=== PATIENT | male | born 1965 | race Caucasian/White ===

== ENCOUNTER 2019-06-14 11:57 | Inpatient (IN) | payer MEDICARE, MEDICAID ==
[2019-06-14] MEDS ORDERED: ONDANSETRON HCL INJ/PF 4 MG/2 ML SDV IV ONE (12:10)
[2019-06-14] MEDS ORDERED: NORMAL SALINE 1000 ML 1,000 ML IV ONE ×2 (12:10→13:01)
--- NOTE | 2019-06-14 12:12 | ER Document Report ---
ED Medical Screen (RME) - General Chief Complaint: Vomiting Stated Complaint: VOMITING Time Seen by Provider: 06/14/19 12:06 Primary Care Provider: CHAITANYA DAILY [Primary Care Provider] - Follow up as needed Information source: Patient Notes: Patient presents complaining of nausea and vomiting for the past 2 days. Patient states he did have abdominal pain but is improved at this time. Patient does report lightheadedness. Patient denies any fever. Patient was sent here from the [facility]. Patient has been at the [facility] for treatment of marijuana use. Patient reports a previous history of colon cancer. Patient tachycardic and hypotensive in triage. I have greeted and performed a rapid initial assessment of this patient. A comprehensive ED assessment and evaluation of the patient, analysis of test results and completion of the medical decision making process will be conducted by additional ED providers. - Related Data Allergies/Adverse Reactions: morphine Allergy (Verified 06/14/19 12:05) penicillin V Allergy (Verified 06/14/19 12:05) Physical Exam - Vital signs Vitals: Temp Pulse Resp BP Pulse Ox 98.4 F 122 H 40 H 89/59 L 94 06/14/19 12:06 06/14/19 12:06 06/14/19 12:06 06/14/19 12:06 06/14/19 12:06 - General General appearance: Alert In distress: Moderate Notes: Tachycardic Course - Vital Signs Vital signs: Temp Pulse Resp BP Pulse Ox 98.4 F 122 H 40 H 89/59 L 94 06/14/19 12:06 06/14/19 12:06 06/14/19 12:06 06/14/19 12:06 06/14/19 12:06 Doctor's Discharge - Discharge Referrals: CHAITANYA DAILY [Primary Care Provider] - Follow up as needed
[2019-06-14] MEDS ORDERED: DEXTROSE 50%-WATER 25 GM/50 ML DISP.SYRIN IV ONE (13:05)
[2019-06-14] MEDS ORDERED: PANTOPRAZOLE SODIUM 40 MG VIAL IV ONE (13:07)
[2019-06-14] MEDS ORDERED: PANTOPRAZOLE SODIUM 40 MG VIAL IV PRN (13:07)
--- NOTE | 2019-06-14 13:14 | ER Document Report ---
ED General - General Mode of Arrival: Ambulatory Information source: Patient - HPI Onset: Other Onset/Duration: Persistent Quality of pain: Achy Associated symptoms: Nausea, Vomiting Exacerbated by: Denies Relieved by: Denies Similar symptoms previously: Yes Recently seen / treated by doctor: Yes <JULIA BECERRIL - Last Filed: 06/14/19 21:23> <LEXY BROTHERS - Last Filed: 06/15/19 01:13> <CAREY PROCTOR IV - Last Filed: 06/15/19 03:07> - General Chief Complaint: Vomiting Stated Complaint: VOMITING Time Seen by Provider: 06/14/19 12:06 Notes: 53-year-old male presents to the emergency department from [facility] with complaints of nausea vomiting abdominal pain. At this time patient is a poor historian. I contacted Roberto GROVER at [facility]. She reports patient presented to their facility for withdrawal of heroin on June 11. She reports he informed them he has been doing one gram a day for the past 6 months. He also reports he used cocaine a few weeks ago. She reports patient was vomiting upon arrival. They did give him IM Phenergan and some Zofran as well as Thorazine Vistaril, thiamine and multivitamin. She reports that over the past 2 days patient has vomited approximately 3000 cc emesis. She reports over Sunday night he did well did not vomit. She reports he started vomiting again this morning. She reports at that time his blood pressure was dropping his heart rate increased. He also complained he was feeling weak. She reports patient has a history of colon cancer that is in remission. Reports he received immunotherapy. Last dose was in April. Pt reports Left AKA due to a DVT. (JULIA BECERRIL) - Related Data Allergies/Adverse Reactions: morphine Allergy (Verified 06/14/19 12:05) penicillin V Allergy (Verified 06/14/19 12:05) Past Medical History - General Information source: Patient - Social History Smoking Status: Current Every Day Smoker Cigarette use (# per day): Yes Frequency of alcohol use: Occasional Drug Abuse: Cocaine, Heroin, Marijuana, Other - fentanyl Patient has suicidal ideation: No Patient has homicidal ideation: No Malignancy Medical History: Reports Other - colon cancer Past Surgical History: Reports: Other - left bka <JULIA BECERRIL - Last Filed: 06/14/19 21:23> - Social History Family History: Reviewed & Not Pertinent <LEXY BROTHERS - Last Filed: 06/15/19 01:13> Review of Systems <JULIA BECERRIL - Last Filed: 06/14/19 21:23> - Review of Systems Notes: Review HPI for review of systems., All other systems negative (BECERRILJULIA) Physical Exam - General General appearance: Other <JULIA BECERRIL - Last Filed: 06/14/19 21:23> - Vital signs Vitals: Temp 98.4 F 06/14/19 12:00 Course - Laboratory Result Diagrams: 06/14/19 12:38 06/14/19 19:59 - Diagnostic Test Radiology reviewed: Image reviewed, Reports reviewed - EKG Interpretation by Me Rate: Tachycardia Harts/QRS: Right axis deviation <JULIA BECERRIL - Last Filed: 06/14/19 21:23> - Laboratory Result Diagrams: 06/14/19 12:38 06/14/19 19:59 <LEXY BROTHERS - Last Filed: 06/15/19 01:13> - Laboratory Result Diagrams: 06/14/19 12:38 06/14/19 19:59 <CAREY PROCTOR IV - Last Filed: 06/15/19 03:07> - Re-evaluation Re-evalutation: 06/14/19 13:14 [facility] contacted for report, discussed patient with roberto perez consulted, who assessed patient, +gastrocult noted, advised to contact dr mcneil surgeon. dr mcneil contacted for potential GIB. 06/14/19 13:[address] perez consulted, advised clindamycin due to patient pcn allergies, symptoms and reason for elevated lactic (possible due to vomiting, de hydration) Patient seems to be confused at times. He is alert to place/name but altered to situation other times. CT head ordered for AMS. 06/14/19 16:10 Patient reports that he is feeling better. Requesting p.o. fluids. Denies abdominal pain. Patient reports he snorts heroin he does not do IV injection. Second lactic 1.8. leukocytosis wiht h/h elevated. hyponatremia noted, chloride 88, most likely due to vomiting. patient has received 3 l ns, Prosthetic leg removed for comfort per patient request. 06/14/19 17:35 Patient seems more alert. Blood pressures remains low 85/51 with patient still tachy. Patient has received 3 L of fluid. H&H stable. Stopped the Protonix. Patient has not had no further vomiting. CT negative. Consulted Dr. Ma regarding bp/tachy, labs, patient history. Reviewed patient external medications. Noted he is taking warfarin. Patient reports that is for his history of blood clot. Patient also takes lisinopril, xanax and is also prescribed 20 mg of oxycodone p.o. 3 times a day. Urine drug screen shows positive for cocaine. Dr Ma advised another liter of D5NS, thiamine, repeat accucheck. Pt updated on plan of care, verbalized understanding. 06/14/19 19:33 Patient remains tachycardic at 120 with low blood pressure of 103/65, dr ma c onsulted, he advises admission. Laboratory 06/14/19 06/14/19 06/14/19 12:38 12:38 12:38 WBC 15.9 H RBC 6.31 H Hgb 18.7 H Hct 52.0 H MCV 82 MCH 29.6 MCHC 36.0 RDW 17.6 H Plt Count 430 Lymph % (Auto) 16.2 [place] % (Auto) 8.6 Eos % (Auto) 17.8 H Baso % (Auto) 0.4 Absolute Neuts (auto) 9.0 H Absolute Lymphs (auto) 2.6 Absolute Monos (auto) 1.4 Absolute Eos (auto) 2.8 H Absolute Basos (auto) 0.1 Seg Neutrophils % 57.0 PT 18.1 H INR 1.49 APTT VBG pH VBG pCO2 VBG HCO3 VBG Base Excess Sodium 130.3 L Potassium 4.2 Chloride 88 L Carbon Dioxide 23 Anion Gap 19 BUN 15 Creatinine 1.01 Est GFR ( Amer) > 60 Est GFR (MDRD) Non-Af > 60 Glucose 53 L POC Glucose Lactic Acid Calcium 11.1 H Magnesium 2.2 Total Bilirubin 1.6 H Direct Bilirubin 0.2 Neonat Total Bilirubin Not Reportable Neonat Direct Bilirubin Not Reportable Neonat Indirect Bili Not Reportable AST 37 ALT 13 Alkaline Phosphatase 72 Ammonia Troponin I Total Protein 7.7 Albumin 4.8 Amylase Lipase 122.3 Urine Color Urine Appearance Urine pH Ur Specific [place] Urine Protein Urine Glucose (UA) Urine Ketones Urine Blood Urine Nitrite (Reflex) Urine Bilirubin Urine Urobilinogen Leukocyte Esterase Rfl Urine RBC (Auto) U Hyaline Cast (Auto) Urine Bacteria (Auto) Urine WBC (Reflex) Squamous Epi Cells Auto Urine Mucus (Auto) Urine Ascorbic Acid POC Gastric Occult Bld Urine Opiates Screen Urine Methadone Screen Ur Barbiturates Screen Ur Phencyclidine Scrn Ur Amphetamines Screen U Benzodiazepines Scrn Urine Cocaine Screen U Marijuana (THC) Screen Serum Alcohol Blood Type Antibody Screen 06/14/19 06/14/19 06/14/19 12:38 12:38 12:38 WBC RBC Hgb Hct MCV MCH MCHC RDW Plt Count Lymph % (Auto) [place] % (Auto) Eos % (Auto) Baso % (Auto) Absolute Neuts (auto) Absolute Lymphs (auto) Absolute Monos (auto) Absolute Eos (auto) Absolute Basos (auto) Seg Neutrophils % PT INR APTT VBG pH 7.32 VBG pCO2 46.6 VBG HCO3 23.7 VBG Base Excess -2.8 Sodium Potassium Chloride Carbon Dioxide Anion Gap BUN Creatinine Est GFR ( Amer) Est GFR (MDRD) Non-Af Glucose POC Glucose Lactic Acid 3.4 H Calcium Magnesium Total Bilirubin Direct Bilirubin Neonat Total Bilirubin Neonat Direct Bilirubin Neonat Indirect Bili AST ALT Alkaline Phosphatase Ammonia Troponin I Total Protein Albumin Amylase 50 Lipase Urine Color Urine Appearance Urine pH Ur Specific [place] Urine Protein Urine Glucose (UA) Urine Ketones Urine Blood Urine Nitrite (Reflex) Urine Bilirubin Urine Urobilinogen Leukocyte Esterase Rfl Urine RBC (Auto) U Hyaline Cast (Auto) Urine Bacteria (Auto) Urine WBC (Reflex) Squamous Epi Cells Auto Urine Mucus (Auto) Urine Ascorbic Acid POC Gastric Occult Bld Urine Opiates Screen Urine Methadone Screen Ur Barbiturates Screen Ur Phencyclidine Scrn Ur Amphetamines Screen U Benzodiazepines Scrn Urine Cocaine Screen U Marijuana (THC) Screen Serum Alcohol < 10 Blood Type Antibody Screen 06/14/19 06/14/19 06/14/19 12:38 12:38 12:57 WBC RBC Hgb Hct MCV MCH MCHC RDW Plt Count Lymph % (Auto) [place] % (Auto) Eos % (Auto) Baso % (Auto) Absolute Neuts (auto) Absolute Lymphs (auto) Absolute Monos (auto) Absolute Eos (auto) Absolute Basos (auto) Seg Neutrophils % PT INR APTT 42.6 H VBG pH VBG pCO2 VBG HCO3 VBG Base Excess Sodium Potassium Chloride Carbon Dioxide Anion Gap BUN Creatinine Est GFR ( Amer) Est GFR (MDRD) Non-Af Glucose POC Glucose 54 L Lactic Acid Calcium Magnesium Total Bilirubin Direct Bilirubin Neonat Total Bilirubin Neonat Direct Bilirubin Neonat Indirect Bili AST ALT Alkaline Phosphatase Ammonia Troponin I < 0.012 Total Protein Albumin Amylase Lipase Urine Color Urine Appearance Urine pH Ur Specific [place] Urine Protein Urine Glucose (UA) Urine Ketones Urine Blood Urine Nitrite (Reflex) Urine Bilirubin Urine Urobilinogen Leukocyte Esterase Rfl Urine RBC (Auto) U Hyaline Cast (Auto) Urine Bacteria (Auto) Urine WBC (Reflex) Squamous Epi Cells Auto Urine Mucus (Auto) Urine Ascorbic Acid POC Gastric Occult Bld Urine Opiates Screen Urine Methadone Screen Ur Barbiturates Screen Ur Phencyclidine Scrn Ur Amphetamines Screen U Benzodiazepines Scrn Urine Cocaine Screen U Marijuana (THC) Screen Serum Alcohol Blood Type Antibody Screen 06/14/19 06/14/19 06/14/19 13:00 13:09 13:09 WBC RBC Hgb Hct MCV MCH MCHC RDW Plt Count Lymph % (Auto) [place] % (Auto) Eos % (Auto) Baso % (Auto) Absolute Neuts (auto) Absolute Lymphs (auto) Absolute Monos (auto) Absolute Eos (auto) Absolute Basos (auto) Seg Neutrophils % PT INR APTT VBG pH VBG pCO2 VBG HCO3 VBG Base Excess Sodium Potassium Chloride Carbon Dioxide Anion Gap BUN Creatinine Est GFR ( Amer) Est GFR (MDRD) Non-Af Glucose POC Glucose Lactic Acid Calcium Magnesium Total Bilirubin Direct Bilirubin Neonat Total Bilirubin Neonat Direct Bilirubin Neonat Indirect Bili AST ALT Alkaline Phosphatase Ammonia < 8.7 L Troponin I Total Protein Albumin Amylase Lipase Urine Color Urine Appearance Urine pH Ur Specific [place] Urine Protein Urine Glucose (UA) Urine Ketones Urine Blood Urine Nitrite (Reflex) Urine Bilirubin Urine Urobilinogen Leukocyte Esterase Rfl Urine RBC (Auto) U Hyaline Cast (Auto) Urine Bacteria (Auto) Urine WBC (Reflex) Squamous Epi Cells Auto Urine Mucus (Auto) Urine Ascorbic Acid POC Gastric Occult Bld POSITIVE Urine Opiates Screen Urine Methadone Screen Ur Barbiturates Screen Ur Phencyclidine Scrn Ur Amphetamines Screen U Benzodiazepines Scrn Urine Cocaine Screen U Marijuana (THC) Screen Serum Alcohol Blood Type A POSITIVE Antibody Screen NEGATIVE 06/14/19 06/14/19 06/14/19 14:26 15:30 16:12 WBC RBC Hgb Hct MCV MCH MCHC RDW Plt Count Lymph % (Auto) [place] % (Auto) Eos % (Auto) Baso % (Auto) Absolute Neuts (auto) Absolute Lymphs (auto) Absolute Monos (auto) Absolute Eos (auto) Absolute Basos (auto) Seg Neutrophils % PT INR APTT VBG pH VBG pCO2 VBG HCO3 VBG Base Excess Sodium Potassium Chloride Carbon Dioxide Anion Gap BUN Creatinine Est GFR ( Amer) Est GFR (MDRD) Non-Af Glucose POC Glucose 158 H Lactic Acid 1.8 Calcium Magnesium Total Bilirubin Direct Bilirubin Neonat Total Bilirubin Neonat Direct Bilirubin Neonat Indirect Bili AST ALT Alkaline Phosphatase Ammonia Troponin I Total Protein Albumin Amylase Lipase Urine Color YELLOW Urine Appearance SLIGHTLY-CLOUDY Urine pH 6.0 Ur Specific [place] 1.020 Urine Protein 100 H Urine Glucose (UA) 150 H Urine Ketones 80 H Urine Blood NEGATIVE Urine Nitrite (Reflex) NEGATIVE Urine Bilirubin NEGATIVE Urine Urobilinogen NEGATIVE Leukocyte Esterase Rfl NEGATIVE Urine RBC (Auto) 0 U Hyaline Cast (Auto) 33 Urine Bacteria (Auto) TRACE Urine WBC (Reflex) 2 Squamous Epi Cells Auto <1 Urine Mucus (Auto) FEW Urine Ascorbic Acid NEGATIVE POC Gastric Occult Bld Urine Opiates Screen Urine Methadone Screen Ur Barbiturates Screen Ur Phencyclidine Scrn Ur Amphetamines Screen U Benzodiazepines Scrn Urine Cocaine Screen U Marijuana (THC) Screen Serum Alcohol Blood Type Antibody Screen 06/14/19 16:12 WBC RBC Hgb Hct MCV MCH MCHC RDW Plt Count Lymph % (Auto) [place] % (Auto) Eos % (Auto) Baso % (Auto) Absolute Neuts (auto) Absolute Lymphs (auto) Absolute Monos (auto) Absolute Eos (auto) Absolute Basos (auto) Seg Neutrophils % PT INR APTT VBG pH VBG pCO2 VBG HCO3 VBG Base Excess Sodium Potassium Chloride Carbon Dioxide Anion Gap BUN Creatinine Est GFR ( Amer) Est GFR (MDRD) Non-Af Glucose POC Glucose Lactic Acid Calcium Magnesium Total Bilirubin Direct Bilirubin Neonat Total Bilirubin Neonat Direct Bilirubin Neonat Indirect Bili AST ALT Alkaline Phosphatase Ammonia Troponin I Total Protein Albumin Amylase Lipase Urine Color Urine Appearance Urine pH Ur Specific [place] Urine Protein Urine Glucose (UA) Urine Ketones Urine Blood Urine Nitrite (Reflex) Urine Bilirubin Urine Urobilinogen Leukocyte Esterase Rfl Urine RBC (Auto) U Hyaline Cast (Auto) Urine Bacteria (Auto) Urine WBC (Reflex) Squamous Epi Cells Auto Urine Mucus (Auto) Urine Ascorbic Acid POC Gastric Occult Bld Urine Opiates Screen NEGATIVE Urine Methadone Screen NEGATIVE Ur Barbiturates Screen NEGATIVE Ur Phencyclidine Scrn NEGATIVE Ur Amphetamines Screen UNCONFIRMED POSITIVE U Benzodiazepines Scrn UNCONFIRMED POSITIVE Urine Cocaine Screen UNCONFIRMED POSITIVE U Marijuana (THC) Screen NEGATIVE Serum Alcohol Blood Type Antibody Screen 06/14/19 17:40 06/14/19 17:49 Chest X-Ray 06/14/19 12:09 IMPRESSION: NO ACUTE RADIOGRAPHIC FINDING IN THE CHEST. VASCULAR PORT DESCRIBED. Head CT 06/14/19 15:37 IMPRESSION: NORMAL BRAIN CT WITHOUT CONTRAST. EVIDENCE OF ACUTE STROKE: NO. 06/14/19 19:[address] Quiroz for admission. He is requesting a repeat Chem-[address] of the abdomen pelvis with IV. 06/14/19 20:51 repeat chem 12 with moderate hyponatremia, CT of abd/pelvis neg. Pt still tachycardic at 123 with BP now 120/67. Attempted to consult Dr. Quiroz 06/14/19 21:07 Dr. Quiroz contacted. Advised on Chem-12 results in results of CT. He advises CTA of the chest. 06/14/19 21:24 pt unable to have CTA due to recent CT ABD/PELVIS with IV CONTRAST. I attempted to contact Dr. Quiroz to notify him without success. Report given to Lexy brothers ENGINEERING PSYCHOLOGIST. (JULIA BECERRIL) 06/14/19 21:[address] Quiroz, the hospitalist. I informed him that the patient cannot have a CTA because he had contrast today. He would like the patient to have a VQ scan. Dr. Quiroz states that he will evaluate the patient. 06/15/19 00:[address] Quiroz, who states he evaluated the patient earlier. He states that the patient does not need to be admitted and states that if there are findings on his VQ scan to let him know. 06/15/19 01:13 Dr. Proctor evaluated the patient. Patient is tachypneic and still tachycardic, as he has been. Patient was moved to a COVID room, as the patient states that he had a cough for the past [address] Quiroz came to bedside. 06/15/19 01:17 Dr. Quiroz reevaluated the patient. Patient will be admitted to the fifth floor. (LEXY BROTHERS) 06/15/19 03:02 EMLIY SANTAMARIA was called overhead at approximately 0212 hrs. Code was called from nuclear medicine suite. This MD responded to the code. See nursing notes for ALS medications given. See procedure note for intubation. Patient was initially in asystole, however we were able to successfully obtain ROSC. Dr. Quiroz was notified. He contacted Nicholas Arguello NP with ICU who accepted the patient into her care on behalf of Dr. Gonzáles. (CAREY PROCTOR IV) - Vital Signs Vital signs: Temp Pulse Resp BP Pulse Ox 99 F 119 H 48 H 126/107 H 96 06/15/19 00:48 06/15/19 00:48 06/15/19 00:48 06/15/19 00:48 06/15/19 00:48 - Laboratory Laboratory results interpreted by co: 06/14/19 06/14/19 06/14/19 12:38 12:38 12:38 WBC 15.9 H RBC 6.31 H Hgb 18.7 H Hct 52.0 H RDW 17.6 H Eos % (Auto) 17.8 H Absolute Neuts (auto) 9.0 H Absolute Eos (auto) 2.8 H PT 18.1 H APTT Sodium 130.3 L Chloride 88 L Glucose 53 L POC Glucose Lactic Acid Calcium 11.1 H Total Bilirubin 1.6 H Ammonia Total Protein Albumin Urine Protein Urine Glucose (UA) Urine Ketones 06/14/19 06/14/19 06/14/19 12:38 12:38 12:57 WBC RBC Hgb Hct RDW Eos % (Auto) Absolute Neuts (auto) Absolute Eos (auto) PT APTT 42.6 H Sodium Chloride Glucose POC Glucose 54 L Lactic Acid 3.4 H Calcium Total Bilirubin Ammonia Total Protein Albumin Urine Protein Urine Glucose (UA) Urine Ketones 06/14/19 06/14/19 06/14/19 13:09 14:26 16:12 WBC RBC Hgb Hct RDW Eos % (Auto) Absolute Neuts (auto) Absolute Eos (auto) PT APTT Sodium Chloride Glucose POC Glucose 158 H Lactic Acid Calcium Total Bilirubin Ammonia < 8.7 L Total Protein Albumin Urine Protein 100 H Urine Glucose (UA) 150 H Urine Ketones 80 H 06/14/19 19:59 WBC RBC Hgb Hct RDW Eos % (Auto) Absolute Neuts (auto) Absolute Eos (auto) PT APTT Sodium 127.4 L Chloride Glucose 118 H POC Glucose Lactic Acid Calcium Total Bilirubin Ammonia Total Protein 5.0 L Albumin 2.7 L Urine Protein Urine Glucose (UA) Urine Ketones - EKG Interpretation by Me Additional EKG results interpreted by me: 06/14/19 13:[address] elevation (JULIA BECERRIL) Procedures - Intubation Orotracheal Time of Intubation: 02:22 Blade type: Sammi Blade size: 4 ETT size: 7.5 ETT secured at: Lips ETT secured at (cm): 22 Breath Sounds after Intubation: Equal Intubation Complications: No complications <CAREY PROCTOR IV - Last Filed: 06/15/19 03:07> Critical Care Note - Critical Care Note Total time excluding time spent on procedures (mins): 30 - CODE BLUE was run by this MD when the patient coded in the nuclear medicine suite <CAREY PROCTOR IV - Last Filed: 06/15/19 03:07> Discharge <JULIA BCEERRIL - Last Filed: 06/14/19 21:23> - Discharge Admitting Provider: Richie (Hospitalist) Unit Admitted: Telemetry - 5th floor <LEXY BROTHERS - Last Filed: 06/15/19 01:13> <CAREY PROCTOR IV - Last Filed: 06/15/19 03:07> - Discharge Clinical Impression: Hyponatremia, Substance abuse, tachycardic Nausea & vomiting Qualifiers: Vomiting type: unspecified Vomiting Intractability: unspecified Qualified Code(s): R11.2 - Nausea with vomiting, unspecified Condition: Stable Disposition: ADMITTED INPATIENT
[2019-06-14 13:15] LABS: ABSOLUTE BASOPHILS # (AUTO) 0.1 10^3/uL (0.0-0.2); ABSOLUTE EOSINOPHILS # (AUTO) 2.8 10^3/uL (0.0-0.6); ABSOLUTE LYMPHOCYTES (AUTO) 2.6 10^3/uL (0.5-4.7); ABSOLUTE MONOCYTES (AUTO) 1.4 10^3/uL (0.1-1.4); BASOPHILS % (AUTO) 0.4 % (0-2); EOSINOPHILS % (AUTO) 17.8 % (0-6); HEMOGLOBIN 18.7 g/dL (13.5-17.0); LYMPHOCYTES % (AUTO) 16.2 % (13-45); MEAN CORPUSCULAR HEMOGLOBIN 29.6 pg (27.0-33.4); MEAN CORPUSCULAR VOLUME 82 fl (80-97); MONOCYTES % (AUTO) 8.6 % (3-13); PLATELET COUNT 430 10^3/uL (150-450); RED BLOOD COUNT 6.31 10^6/uL (4.35-5.55); RED CELL DISTRIBUTION WIDTH 17.6 % (11.5-14.0); TOTAL CELLS COUNTED % (AUTO) 100 %; VENOUS BLOOD BASE EXCESS -2.8 mmol/L; VENOUS BLOOD HCO3 23.7 mmol/L (20-32); VENOUS BLOOD PCO2 46.6 mmHg (35-63); VENOUS BLOOD PH 7.32 (7.30-7.42); WHITE BLOOD COUNT 15.9 10^3/uL (4.0-10.5)
--- NOTE | 2019-06-14 13:17 | RADIOLOGY REPORT (SQ) ---
EXAM DESCRIPTION: CHEST SINGLE VIEW IMAGES COMPLETED DATE/TIME: 06/14/2019 12:58 pm REASON FOR STUDY: n/v, hypotensive COMPARISON: None. EXAM PARAMETERS: NUMBER OF VIEWS: One view. TECHNIQUE: Single frontal radiographic view of the chest acquired. RADIATION DOSE: NA LIMITATIONS: None. FINDINGS: LUNGS AND PLEURA: No opacities, masses or pneumothorax. No pleural effusion. MEDIASTINUM AND HILAR STRUCTURES: No masses. Contour normal. HEART AND VASCULAR STRUCTURES: Heart normal in size. Normal vasculature. BONES: No acute findings. HARDWARE: Vascular port. The catheter makes a 180 turn. Cannot confirm if this is in satisfactory position. OTHER: No other significant finding. IMPRESSION: NO ACUTE RADIOGRAPHIC FINDING IN THE CHEST. VASCULAR PORT DESCRIBED. TECHNICAL DOCUMENTATION: JOB ID: [id number] 2010 [facility]- All Rights Reserved Reading location - IP/workstation name: [email or web address]
[2019-06-14 13:18] LABS: INTERNATIONAL RATION (INR) 1.49; PROTHROMBIN TIME 18.1 SEC (11.4-15.4)
[2019-06-14 13:32] LABS: ALBUMIN 4.8 g/dL (3.5-5.0); ALKALINE PHOSPHATASE 72 U/L (38-126); ANION GAP 19 (5-19); ASPARTATE AMINO TRANSFERASE 37 U/L (17-59); BILIRUBIN,DIRECT 0.2 mg/dL (0.0-0.4); BILIRUBIN,TOTAL 1.6 mg/dL (0.2-1.3); BLOOD UREA NITROGEN 15 mg/dL (7-20); CALCIUM 11.1 mg/dL (8.4-10.2); CARBON DIOXIDE 23 mmol/L (22-30); CHLORIDE 88 mmol/L (98-107); POTASSIUM 4.2 mmol/L (3.6-5.0); TOTAL PROTEIN 7.7 g/dL (6.3-8.2)
[2019-06-14 13:33] LABS: AMYLASE 50 U/L (30-110)
[2019-06-14] MEDS ORDERED: CLINDAMYCIN 900 MG/D5W RTU 900 MG/50 ML RTUPB IV ONE (13:34)
[2019-06-14 13:35] LABS: ALCOHOL < 10 mg/dL (NONE DETECTED); GLUCOSE 53 mg/dL (75-110)
[2019-06-14] MEDS: NORMAL SALINE 1000 ML 1,000 ML IV PRN (14:42)
[2019-06-14 16:37] LABS: APPEARANCE,URINE SLIGHTLY-CLOUDY; BILIRUBIN,URINE NEGATIVE (NEGATIVE); COLOR,URINE YELLOW; GLUCOSE, URINE 150 mg/dL (NEGATIVE); KETONES,URINE 80 mg/dL (NEGATIVE); PROTEIN,URINE 100 mg/dL (NEGATIVE); UROBILINOGEN,URINE NEGATIVE mg/dL (<2.0)
--- NOTE | 2019-06-14 16:41 | RADIOLOGY REPORT (SQ) ---
EXAM DESCRIPTION: CT HEAD WITHOUT IMAGES COMPLETED DATE/TIME: 06/14/2019 4:26 pm REASON FOR STUDY: confusion COMPARISON: None. TECHNIQUE: Axial images acquired through the brain without intravenous contrast. Images reviewed wi th bone, brain and subdural windows. Additional sagittal and coronal reconstructions were generated. Images stored on PACS. All CT scanners at this facility use dose modulation, iterative reconstruction, and/or weight based d osing when appropriate to reduce radiation dose to as low as reasonably achievable (ALARA). [facility]: Dose Right [facility]: CareDose [facility]: Dose Right [facility]: Teradose 4D [facility]: [email or web address] RADIATION DOSE: CT Rad equipment meets quality standard of care and radiation dose reduction techniq ues were employed. CTDIvol: 53.2 mGy. DLP: 964 mGy-cm. mGy. LIMITATIONS: None. FINDINGS: VENTRICLES: Normal size and contour. CEREBRUM: No masses. No hemorrhage. No midline shift. No evidence for acute infarction. Normal gra y/white matter differentiation. No areas of low density in the white matter. CEREBELLUM: No masses. No hemorrhage. No alteration of density. No evidence for acute infarction. EXTRAAXIAL SPACES: No fluid collections. No masses. ORBITS AND GLOBE: No intra- or extraconal masses. Normal contour of globe without masses. CALVARIUM: No fracture. PARANASAL SINUSES: No fluid or mucosal thickening. SOFT TISSUES: No mass or hematoma. OTHER: No other significant finding. IMPRESSION: NORMAL BRAIN CT WITHOUT CONTRAST. EVIDENCE OF ACUTE STROKE: NO. COMMENT: Quality ID # [id number]: Final reports with documentation of one or more dose reduction techniques (e.g., Automated exposure control, adjustment of the mA and/or kV according to patient size, use of iterative reconstruction technique) TECHNICAL DOCUMENTATION: JOB ID: [id number] 2010 [employer]- All Rights Reserved Reading location - IP/workstation name: [email or web address]
[2019-06-14 16:52] LABS: URINE BARBITURATES SCREEN NEGATIVE; URINE MARIJUANA (THC) SCREEN NEGATIVE; URINE METHADONE SCREEN NEGATIVE; URINE PHENCYCLIDINE SCREEN NEGATIVE
[2019-06-14 16:58] LABS: URINE AMPHETAMINES SCREEN UNCONFIRMED POSITIVE; URINE BENZODIAZEPINES SCREEN UNCONFIRMED POSITIVE; URINE COCAINE SCREEN UNCONFIRMED POSITIVE
[2019-06-14] MEDS ORDERED: DEXTROSE 5%-LACTATED RINGERS 1,000 ML IV ONE (17:29)
[2019-06-14] MEDS ORDERED: THIAMINE HCL 100 MG in NORMAL SALINE 50 ML IV ONE (17:30)
[2019-06-14] MEDS ORDERED: THIAMINE HCL INJ 200 MG/2 ML VIAL ONE (18:18)
[2019-06-14 20:32] LABS: ALBUMIN 2.7 g/dL (3.5-5.0); ALKALINE PHOSPHATASE 44 U/L (38-126); ANION GAP 5 (5-19); ASPARTATE AMINO TRANSFERASE 23 U/L (17-59); BILIRUBIN,TOTAL 1.1 mg/dL (0.2-1.3); BLOOD UREA NITROGEN 13 mg/dL (7-20); CALCIUM 9.5 mg/dL (8.4-10.2); CARBON DIOXIDE 23 mmol/L (22-30); CHLORIDE 99 mmol/L (98-107); GLUCOSE 118 mg/dL (75-110); POTASSIUM 3.7 mmol/L (3.6-5.0)
--- NOTE | 2019-06-14 20:34 | RADIOLOGY REPORT (SQ) ---
CLINICAL INDICATION: abd pain, n/v. . TECHNIQUE: Contrast enhanced spiral axial CT imaging was obtained of the abdomen and pelvis with multiplanar reconstructions. This exam was performed according to our departmental dose-optimization program, which includes automated exposure control, adjustment of the mA and/or kV according to patient size and/or use of iterative reconstruction techniques. COMPARISON: None. CORRELATION: None. FINDINGS: Abdomen: The lung bases demonstrate dependent airspace disease. The heart is prominent. No pericardial fluid. No significant pleural fluid. Small hiatal hernia. The liver is of normal size contour and attenuation. The gallbladder is nondistended without inflammatory change. The pancreas is unremarkable. The spleen is unremarkable. The adrenals are unremarkable. The kidneys appear grossly normal without evidence of urolithiasis or hydronephrosis. There is no evidence of free air. No free fluid. No bulky adenopathy. Abdominal aorta is nonaneurysmal. Pelvis: The bowel is nonobstructed. The bowel is unopacified with oral contrast. Pelvic contents are unremarkable. The appendix appears be surgically absent. Apparent postsurgical change from right hemicolectomy. Please correlate with history. Visualized bones are unremarkable. IMPRESSION: No acute intra-abdominal process is identified. The bowel is nonobstructed. Remote postsurgical change. Dependent atelectasis. Moderate hiatal hernia. Imaging is degraded by patient motion, with resultant artifact. The best possible images were obtained..
[2019-06-15] MEDS ORDERED: MORPHINE SULFATE 10 MG/5 ML ORAL SOLUTION UDCUP PO ONE (01:40)
[2019-06-15] MEDS ORDERED: IPRATROPIUM/ALBUTEROL 0.5-2.5 MG/3 ML AMPUL NEB PRN (01:42)
[2019-06-15] MEDS ORDERED: GUAIFENESIN SYRP 200 MG/10 ML UDC PO PRN (01:42)
[2019-06-15] MEDS ORDERED: METHYLPREDNISOLONE INJ 125 MG/2 ML SDV IV ONE (02:15)
[2019-06-15] MEDS ORDERED: IPRATROPIUM/ALBUTEROL 0.5-2.5 MG/3 ML AMPUL NEB ONE (02:15)
[2019-06-15] MEDS ORDERED: SODIUM BICARBONATE 8.4% INJ 50 MEQ/50 ML DISP.SYRIN ONE ×3 (02:25→15:41)
[2019-06-15] MEDS ORDERED: VECURONIUM BROMIDE INJ 10 MG VIAL IV ONE ×2 (02:41→15:41)
[2019-06-15] MEDS ORDERED: LORAZEPAM INJ 2 MG/1 ML VIAL IV ONE (02:46)
[2019-06-15] MEDS ORDERED: LEVOFLOXACIN 750 MG/D5W RTU 750 MG/150 ML RTUPB IV ONE (03:00)
[2019-06-15] MEDS: DEXTROSE 5%-WATER 250 ML with NOREPINEPHRINE BITARTRATE 4 MG IV PRN ×8 (03:05→12:46)
--- NOTE | 2019-06-15 03:08 | PDOC H&P ---
History of Present Illness Admission Date/PCP: 06/15/19 01:22 INDERJIT SOLIS MD Patient complains of: Nausea vomiting and itching History of Present Illness: LILI KELLOGG is a 53 year old male with a past medical history of polysubstance abuse who presents following 48 hours of heroin detox at [place] with complaint of abdominal pain, nausea vomiting and itching without fever chest pain or shortness of breath. In the emergency department he is found to have leukocytosis, hypotension, tachycardia, tachypnea which improves following 4 L normal saline and supplemental oxygen. He has an extensive work-up including VBG, EKG, CT head, chest x-ray, CT abdomen pelvis which are unremarkable. A VQ scan is ordered and he is referred to the hospitalist for admission. Patient admits to recent cocaine use and heroin 48 hours ago. On exam he appears to have pulmonary edema. Prior to this dictation patient is taken to nuclear medicine for VQ scan where he developed asystole. He is intubated and received prolonged CPR with ROS. Transfer of care to the loan review officer at bedside. Past Medical History Malignancy Medical History: Reports: Other - colon cancer Past Surgical History Past Surgical History: Reports: Orthopedic Surgery - L BKA, Other - left bka Social History Information Source: Patient, [facility] Records Lives with: Other - Rehab Smoking Status: Current Every Day Smoker Frequency of Alcohol Use: Occasional Drugs: Cocaine, Heroin, Marijuana, Other - Benzodiazepine - Advance Directive Resuscitation Status: Full Code Family History Parental Family History Reviewed: No - Unobtainable Children Family History Reviewed: No - Unobtainable Sibling(s) Family History Reviewed.: No - Unobtainable Medication/Allergy Allergies/Adverse Reactions: morphine Allergy (Verified 06/14/19 12:05) penicillin V Allergy (Verified 06/14/19 12:05) Review of Systems ROS unobtainable: Due to mental status - And shortness of breath Physical Exam Vital Signs: Temp Pulse Resp BP Pulse Ox 99 F 119 H 48 H 126/107 H 96 06/15/19 00:48 06/15/19 00:48 06/15/19 00:48 06/15/19 00:48 06/15/19 00:48 Intake & Output 06/13/19 06/14/19 06/15/19 11:59 11:59 11:59 Intake Total 3500 Balance 3500 Weight 72.7 kg General appearance: PRESENT: cooperative, disheveled, mild distress, well- developed, well-nourished Head exam: PRESENT: atraumatic, normocephalic Eye exam: PRESENT: conjunctiva pink, EOMI, PERRLA. ABSENT: scleral icterus Ear exam: PRESENT: normal external ear exam Mouth exam: PRESENT: moist, tongue midline Neck exam: ABSENT: carotid bruit, JVD, lymphadenopathy, thyromegaly Respiratory exam: PRESENT: accessory muscle use, crackles, prolonged expiratory phas, rales, retraction, symmetrical. ABSENT: rhonchi, wheezes Cardiovascular exam: PRESENT: gallop, +S1, +S2, tachycardia Pulses: PRESENT: normal dorsalis pedis pul Vascular exam: PRESENT: normal capillary refill GI/Abdominal exam: PRESENT: normal bowel sounds, soft. ABSENT: distended, guarding, mass, organolmegaly, rebound, tenderness Rectal exam: PRESENT: deferred Extremities exam: PRESENT: full ROM. ABSENT: calf tenderness, clubbing, pedal edema Neurological exam: PRESENT: alert, awake, oriented to person, oriented to place, oriented to time, oriented to situation, CN II-XII grossly intact. ABSENT: motor sensory deficit Psychiatric exam: PRESENT: appropriate affect, normal mood. ABSENT: homicidal ideation, suicidal ideation Skin exam: PRESENT: dry, intact, warm. ABSENT: cyanosis, rash Results Laboratory Results: 06/14/19 12:38 06/14/19 19:59 06/14/19 06/14/19 06/14/19 12:38 12:38 12:38 WBC 15.9 H RBC 6.31 H Hgb 18.7 H Hct 52.0 H MCV 82 MCH 29.6 MCHC 36.0 RDW 17.6 H Plt Count 430 Seg Neutrophils % 57.0 VBG pH 7.32 VBG pCO2 46.6 VBG HCO3 23.7 VBG Base Excess -2.8 Sodium 130.3 L Potassium 4.2 Chloride 88 L Carbon Dioxide 23 Anion Gap 19 BUN 15 Creatinine 1.01 Est GFR ( Amer) > 60 Glucose 53 L Lactic Acid Calcium 11.1 H Magnesium 2.2 Total Bilirubin 1.6 H AST 37 Alkaline Phosphatase 72 Ammonia Total Protein 7.7 Albumin 4.8 Amylase Lipase 122.3 Urine Color Urine Appearance Urine pH Ur Specific Warren Urine Protein Urine Glucose (UA) Urine Ketones Urine Blood Urine RBC (Auto) Blood Type Antibody Screen 06/14/19 06/14/19 06/14/19 12:38 12:38 13:09 WBC RBC Hgb Hct MCV MCH MCHC RDW Plt Count Seg Neutrophils % VBG pH VBG pCO2 VBG HCO3 VBG Base Excess Sodium Potassium Chloride Carbon Dioxide Anion Gap BUN Creatinine Est GFR ( Amer) Glucose Lactic Acid 3.4 H Calcium Magnesium Total Bilirubin AST Alkaline Phosphatase Ammonia < 8.7 L Total Protein Albumin Amylase 50 Lipase Urine Color Urine Appearance Urine pH Ur Specific Warren Urine Protein Urine Glucose (UA) Urine Ketones Urine Blood Urine RBC (Auto) Blood Type Antibody Screen 06/14/19 06/14/19 06/14/19 13:09 15:30 16:12 WBC RBC Hgb Hct MCV MCH MCHC RDW Plt Count Seg Neutrophils % VBG pH VBG pCO2 VBG HCO3 VBG Base Excess Sodium Potassium Chloride Carbon Dioxide Anion Gap BUN Creatinine Est GFR ( Amer) Glucose Lactic Acid 1.8 Calcium Magnesium Total Bilirubin AST Alkaline Phosphatase Ammonia Total Protein Albumin Amylase Lipase Urine Color YELLOW Urine Appearance SLIGHTLY-CLOUDY Urine pH 6.0 Ur Specific Warren 1.020 Urine Protein 100 H Urine Glucose (UA) 150 H Urine Ketones 80 H Urine Blood NEGATIVE Urine RBC (Auto) 0 Blood Type A POSITIVE Antibody Screen NEGATIVE 06/14/19 06/14/19 18:05 19:59 WBC RBC Hgb Hct MCV MCH MCHC RDW Plt Count Seg Neutrophils % VBG pH VBG pCO2 VBG HCO3 VBG Base Excess Sodium 127.4 L Potassium 3.7 Chloride 99 Carbon Dioxide 23 Anion Gap 5 BUN 13 Creatinine 0.64 Est GFR ( Amer) > 60 Glucose 118 H Lactic Acid 1.3 Calcium 9.5 Magnesium Total Bilirubin 1.1 AST 23 Alkaline Phosphatase 44 Ammonia Total Protein 5.0 L Albumin 2.7 L Amylase Lipase Urine Color Urine Appearance Urine pH Ur Specific Warren Urine Protein Urine Glucose (UA) Urine Ketones Urine Blood Urine RBC (Auto) Blood Type Antibody Screen 06/14/19 12:38 Troponin I < 0.012 Impressions: Chest X-Ray 06/14/19 12:09 IMPRESSION: NO ACUTE RADIOGRAPHIC FINDING IN THE CHEST. VASCULAR PORT DESCRIBED. Head CT 06/14/19 15:37 IMPRESSION: NORMAL BRAIN CT WITHOUT CONTRAST. EVIDENCE OF ACUTE STROKE: NO. Abdomen/Pelvis CT 06/14/19 19:43 IMPRESSION: No acute intra-abdominal process is identified. The bowel is nonobstructed. Remote postsurgical change. Dependent atelectasis. Moderate hiatal hernia. Imaging is degraded by patient motion, with resultant artifact. The best possible images were obtained.. Assessment and Plan - Diagnosis (1) Asystole Is this a current diagnosis for this admission?: Yes Plan: Massive pulmonary embolism versus hypoxia from pulmonary edema and opiate withdrawal. Airway secured, transferred care to loan review officer at approximately 2:45 AM. (2) Polysubstance abuse Is this a current diagnosis for this admission?: Yes Plan: Supportive care. (3) Pulmonary edema Is this a current diagnosis for this admission?: Yes Plan: Eval for pulmonary blood, intubated for acute respiratory failure. Follow-up loan review officer consult. - Time Time Spent with patient: 25-34 minutes - Inpatient Certification Medical Necessity: Need Close Monitoring Due to Risk of Patient Decompensation
[2019-06-15] MEDS ORDERED: DEXTROSE 5%-WATER 250 ML with VASOPRESSIN 100 UNIT IV PRN ×2 (03:16)
[2019-06-15 04:06] LABS: ABSOLUTE EOSINOPHILS # (AUTO) 1.5 10^3/uL (0.0-0.6); ABSOLUTE MONOCYTES (AUTO) 0.4 10^3/uL (0.1-1.4); ABSOLUTE NEUT (AUTO) 13.1 10^3/uL (1.7-8.2); BASOPHILS % (AUTO) 0.2 % (0-2); EOSINOPHILS % (AUTO) 8.7 % (0-6); LYMPHOCYTES % (AUTO) 11.8 % (13-45); MEAN CORPUSCULAR HEMOGLOBIN 29.4 pg (27.0-33.4); MEAN CORPUSCULAR HGB CONC 34.8 g/dL (32.0-36.0); MEAN CORPUSCULAR VOLUME 85 fl (80-97); MONOCYTES % (AUTO) 2.5 % (3-13); PLATELET COUNT 291 10^3/uL (150-450); RED BLOOD COUNT 4.02 10^6/uL (4.35-5.55); RED CELL DISTRIBUTION WIDTH 17.6 % (11.5-14.0); SEGMENTED NEUTROPHILS % (AUTO) 76.8 % (42-78); TOTAL CELLS COUNTED % (AUTO) 100 %; WHITE BLOOD COUNT 17.1 10^3/uL (4.0-10.5)
[2019-06-15] MEDS ORDERED: PHENYLEPHRINE HCL INJ/PF 10 MG/1 ML SDV ONE ×2 (04:06→07:46)
[2019-06-15] MEDS: DEXTROSE 5%-WATER 250 ML with PHENYLEPHRINE HCL 40 MG IV PRN ×4 (04:06→08:00)
[2019-06-15 04:08] LABS: HEMOGLOBIN 11.8 g/dL (13.5-17.0)
[2019-06-15 04:22] LABS: ANION GAP 8 (5-19); BLOOD UREA NITROGEN 13 mg/dL (7-20); CALCIUM 8.6 mg/dL (8.4-10.2); CARBON DIOXIDE 25 mmol/L (22-30); CHLORIDE 100 mmol/L (98-107); CREATINE KINASE 222 U/L (55-170); GLUCOSE 190 mg/dL (75-110); POTASSIUM 4.3 mmol/L (3.6-5.0)
[2019-06-15 04:34] LABS: CREATINE KINASE MB 3.99 ng/mL (<4.55); TROPONIN I 0.036 ng/mL
[2019-06-15] MEDS ORDERED: NOREPINEPHRINE BITARTRATE INJ/PF 4 MG/4 ML SDV IV ONE ×3 (05:09→15:41)
--- NOTE | 2019-06-15 05:28 | RADIOLOGY REPORT (SQ) ---
EXAM DESCRIPTION: XR CHEST 1 VIEW COMPLETED DATE/TME: 06/15/2019 00:00 CLINICAL HISTORY: 53 years, Male, ETT placement COMPARISON: 06/14/2019 NUMBER OF VIEWS: One TECHNIQUE: AP view the chest LIMITATIONS: None. FINDINGS: Since the previous examination, a right-sided pneumothorax has developed with approximately 1.4 cm of pleural separation with a leftward mediastinal shift. The right lung appears hyperaerated with some consolidation involving the medial aspect of the left lung. The heart size is stable. The endotracheal tube terminates 4.9 cm above the jerry. The nasogastric tube is in satisfactory position. The right chest wall port again has its catheter looped near the junction of the right brachiocephalic vein and SVC with the tip of the catheter directed laterally in the subclavian vein. There is subcutaneous emphysema along the right chest wall. IMPRESSION: Development of a right-sided tension pneumothorax. The above findings were discussed with and acknowledged by LUCIEN Arguello at 4:25 AM on 06/15/2019. copyright 2010 [employer]- All Rights Reserved
[2019-06-15] MEDS: HEPARIN SOD (PORCINE) 5,000 UNIT/ML 1 ML VIAL SUBCUT SCH ×3 (06:17→21:03)
--- NOTE | 2019-06-15 07:13 | RADIOLOGY REPORT (SQ) ---
EXAM DESCRIPTION: XR CHEST 1 VIEW COMPLETED DATE/TME: 06/15/2019 00:00 CLINICAL HISTORY: 53 years Male, pleural pigtail placement COMPARISON: 1.5 hours prior. NUMBER OF VIEWS/TECHNIQUE: 1/AP FINDINGS: Right pigtail catheter tip appears external to the right rib cage. Consider removal or replacement. Small lucency external to the right lower rib cage may indicate small lung herniation were soft tissue emphysema. Small right pneumothorax with pleural separation of 0.9 cm. Extensive soft tissue emphysema of the right hemithorax. Adequate appearing endotracheal tube. Adequate appearing enteric tube partially obscured. Limitation: Leads/hardware/artifact. Leftward cardiac-mediastinal shift. Moderate multifocal opacities of the left upper and lower lung iraheta. Interval worsening. Mild elevation-eventration of the left hemidiaphragm. Right subclavian miniport catheter tip is at the expected right subclavian vein at the level of the mid-distal right clavicle after coiling back on itself at the expected right brachiocephalic vein. Consider adjustment/ replacement. Stable bony thorax. IMPRESSION: 1. Right pigtail catheter tip appears external to the rib cage. Consider removal or replacement. 2. Small right tension pneumothorax and/or partial left lung collapse. 3. Right subclavian miniport catheter tip is at the expected right subclavian vein at the level of the mid-distal right clavicle after coiling back on itself at the expected right brachiocephalic vein. Consider adjustment/ replacement. 4. Moderate multifocal opacities of the left upper and lower lung iraheta. Interval worsening. 5. Small lucency external to the right lower rib cage may indicate small lung herniation were soft tissue emphysema.
--- NOTE | 2019-06-15 07:34 | CRITICAL CARE ADMISSION REPORT ---
HPI Date:: 06/15/19 Time:: 03:30 Reason for ICU Reason:: status post cardiac arrest HPI: LILI KELLOGG is a 53 year old male with a past medical history of polysubstance abuse who presents following 48 hours of heroin detox at [place] with complaint of abdominal pain, nausea vomiting and itching without fever chest pain or shortness of breath. In the emergency department he is found to have leukocytosis, hypotension, tachycardia, tachypnea which improves following 4 L normal saline and supplemental oxygen. In the ER he became hypoxic, tachycardic and hypotensive . He was taken to nuclear medicine for VQ scan where he developed asystole. He was intubated with a 7.5 cm ETT received 5 rounds of epi, 1 bicarb CPR for 30 minutes with ROSC. He is admitted to the ICU. Upon arrival to the ICU he was profoundly hypotensive he was maxed on Levo , and vaso was started at 0.04 Unites/ min, BP remained 70's/40's and phenylephrine was initiated. I placed a Right femoral TLC and left femoral arterial line.CXR order to confirm placement of the ETT which revealed a right tension PTX, a 12 fr pigtail catheter was placed and connected to the pleuravac, he has a + airleak. - Diagnosis/Plan (1) Cardiac arrest Is this a current diagnosis for this admission?: Yes Plan: Keep intubated EKG in am Keep temp no higher than 35 degrees celscius and rewarm after 24 hours ABG now (2) Tension pneumothorax Is this a current diagnosis for this admission?: Yes Plan: Right pleural pigtail placed + airleak Repeat CXR this afternoon Past Medical History Malignancy Medical History: Reports: Other - colon cancer Past Surgical History Past Surgical History: Reports: Orthopedic Surgery - L BKA, Other - left bka Social/Family History - Social History Lives with: Other - Rehab Smoking Status: Unknown if Ever Smoked Frequency of Alcohol Use: Occasional Drugs: Cocaine, Marijuana - Medication/Allergies Allergies/Adverse Reactions: morphine Allergy (Verified 06/14/19 12:05) penicillin V Allergy (Verified 06/14/19 12:05) Physical Exam Vital Signs: Temp Pulse Resp BP Pulse Ox 95.5 F L 117 H 24 H 64/50 L 100 06/15/19 06:00 06/15/19 04:01 06/15/19 06:00 06/15/19 05:38 06/15/19 06:00 Intake & Output 06/14/19 06/15/19 06/16/19 06:59 06:59 06:59 Intake Total 3772 Output Total 40 Balance 3732 Weight 71.7 kg Weight/Height Weight 71.7 kg Height 5 ft 10 in Laboratory/Radiographs Laboratory Results: 06/15/19 03:50 06/15/19 03:50 06/14/19 06/14/19 06/14/19 12:38 12:38 12:38 WBC 15.9 H RBC 6.31 H Hgb 18.7 H Hct 52.0 H MCV 82 MCH 29.6 MCHC 36.0 RDW 17.6 H Plt Count 430 Seg Neutrophils % 57.0 VBG pH 7.32 VBG pCO2 46.6 VBG HCO3 23.7 VBG Base Excess -2.8 Sodium 130.3 L Potassium 4.2 Chloride 88 L Carbon Dioxide 23 Anion Gap 19 BUN 15 Creatinine 1.01 Est GFR ( Amer) > 60 Glucose 53 L Lactic Acid Calcium 11.1 H Magnesium 2.2 Total Bilirubin 1.6 H AST 37 Alkaline Phosphatase 72 Ammonia Total Protein 7.7 Albumin 4.8 Amylase Lipase 122.3 Urine Color Urine Appearance Urine pH Ur Specific Stow Urine Protein Urine Glucose (UA) Urine Ketones Urine Blood Urine RBC (Auto) Blood Type Antibody Screen 06/14/19 06/14/19 06/14/19 12:38 12:38 13:09 WBC RBC Hgb Hct MCV MCH MCHC RDW Plt Count Seg Neutrophils % VBG pH VBG pCO2 VBG HCO3 VBG Base Excess Sodium Potassium Chloride Carbon Dioxide Anion Gap BUN Creatinine Est GFR ( Amer) Glucose Lactic Acid 3.4 H Calcium Magnesium Total Bilirubin AST Alkaline Phosphatase Ammonia < 8.7 L Total Protein Albumin Amylase 50 Lipase Urine Color Urine Appearance Urine pH Ur Specific Stow Urine Protein Urine Glucose (UA) Urine Ketones Urine Blood Urine RBC (Auto) Blood Type Antibody Screen 06/14/19 06/14/19 06/14/19 13:09 15:30 16:12 WBC RBC Hgb Hct MCV MCH MCHC RDW Plt Count Seg Neutrophils % VBG pH VBG pCO2 VBG HCO3 VBG Base Excess Sodium Potassium Chloride Carbon Dioxide Anion Gap BUN Creatinine Est GFR ( Amer) Glucose Lactic Acid 1.8 Calcium Magnesium Total Bilirubin AST Alkaline Phosphatase Ammonia Total Protein Albumin Amylase Lipase Urine Color YELLOW Urine Appearance SLIGHTLY-CLOUDY Urine pH 6.0 Ur Specific Stow 1.020 Urine Protein 100 H Urine Glucose (UA) 150 H Urine Ketones 80 H Urine Blood NEGATIVE Urine RBC (Auto) 0 Blood Type A POSITIVE Antibody Screen NEGATIVE 06/14/19 06/14/19 06/15/19 18:05 19:59 03:50 WBC 17.1 H RBC 4.02 L Hgb 11.8 L D Hct 34.0 L MCV 85 MCH 29.4 MCHC 34.8 RDW 17.6 H Plt Count 291 Seg Neutrophils % 76.8 VBG pH VBG pCO2 VBG HCO3 VBG Base Excess Sodium 127.4 L Potassium 3.7 Chloride 99 Carbon Dioxide 23 Anion Gap 5 BUN 13 Creatinine 0.64 Est GFR ( Amer) > 60 Glucose 118 H Lactic Acid 1.3 Calcium 9.5 Magnesium Total Bilirubin 1.1 AST 23 Alkaline Phosphatase 44 Ammonia Total Protein 5.0 L Albumin 2.7 L Amylase Lipase Urine Color Urine Appearance Urine pH Ur Specific Stow Urine Protein Urine Glucose (UA) Urine Ketones Urine Blood Urine RBC (Auto) Blood Type Antibody Screen 06/15/19 03:50 WBC RBC Hgb Hct MCV MCH MCHC RDW Plt Count Seg Neutrophils % VBG pH VBG pCO2 VBG HCO3 VBG Base Excess Sodium 132.7 L Potassium 4.3 Chloride 100 Carbon Dioxide 25 Anion Gap 8 BUN 13 Creatinine 0.84 Est GFR ( Amer) > 60 Glucose 190 H Lactic Acid Calcium 8.6 Magnesium Total Bilirubin AST Alkaline Phosphatase Ammonia Total Protein Albumin Amylase Lipase Urine Color Urine Appearance Urine pH Ur Specific Stow Urine Protein Urine Glucose (UA) Urine Ketones Urine Blood Urine RBC (Auto) Blood Type Antibody Screen 06/14/19 06/15/19 06/15/19 12:38 03:50 03:50 Creatine Kinase 222 H CK-MB (CK-2) 3.99 Troponin I < 0.012 0.036 Impressions: Head CT 06/14/19 15:37 IMPRESSION: NORMAL BRAIN CT WITHOUT CONTRAST. EVIDENCE OF ACUTE STROKE: NO. Abdomen/Pelvis CT 06/14/19 19:43 IMPRESSION: No acute intra-abdominal process is identified. The bowel is nonobstructed. Remote postsurgical change. Dependent atelectasis. Moderate hiatal hernia. Imaging is degraded by patient motion, with resultant artifact. The best possible images were obtained.. Critical Time Critical Time (minutes): 60 -: The care of a critically ill patient is dynamic. This note represents a static moment in the admission process. Orders and treatments may be given simultaneously and urgently, and time is not sales and merchandising representative of the treatment process. This patient requires Critical Care secondary to life threatening organ or limb dysfunction. Without Critical Care services, the patient is at risk for increased mortality and morbidity.
[2019-06-15] MEDS: NORMAL SALINE 1000 ML 1,000 ML IV PRN ×3 (08:00→20:49)
[2019-06-15] MEDS: IPRATROPIUM/ALBUTEROL 0.5-2.5 MG/3 ML AMPUL NEB SCH ×2 (08:27→16:50)
[2019-06-15 08:44] LABS: ARTERIAL BLOOD BASE EXCESS -10.1 mmol/L; ARTERIAL BLOOD H2CO3 2.98 mmol/L (1.05-1.35); ARTERIAL BLOOD HCO3 23.5 mmol/L (20-24); ARTERIAL BLOOD O2 SATURATION 99.2 % (94-98); ARTERIAL BLOOD PO2 261.8 mmHg (80-100); ARTERIAL BLOOD TOTAL CO2 26.6 mmol/L (23-27)
[2019-06-15 08:45] LABS: ARTERIAL BLOOD FIO2 100%; ARTERIAL BLOOD PH 6.99 (7.35-7.45)
[2019-06-15 08:46] LABS: ARTERIAL BLOOD PCO2 99.1 mmHg (35-45)
[2019-06-15] MEDS: METHYLPREDNISOLONE INJ 125 MG/2 ML SDV IV SCH ×2 (09:55→18:16)
--- NOTE | 2019-06-15 10:21 | EKG REPORT ---
SEVERITY:- ABNORMAL ECG - SINUS TACHYCARDIA RIGHT AXIS DEVIATION NONSPECIFIC T ABNORMALITIES, DIFFUSE LEADS : Confirmed by: David Mcgee 15-Jun-2019 10:20:49
--- NOTE | 2019-06-15 11:21 | RADIOLOGY REPORT (SQ) ---
EXAM DESCRIPTION: CHEST SINGLE VIEW IMAGES COMPLETED DATE/TIME: 06/15/2019 11:08 am REASON FOR STUDY: central line placement and chestube placement COMPARISON: Earlier same day. NUMBER OF VIEWS: One view. TECHNIQUE: Single frontal radiographic image of the chest acquired. LIMITATIONS: None. FINDINGS: LUNGS AND PLEURA: Re-expansion of the right lung. Left lower lobe airspace disease not si gnificantly changed. No significant pneumothorax. Subcutaneous gas right chest wall. MEDIASTINUM AND HEART: Stable heart size and mediastinal structures. SUPPORT DEVICES: Unchanged position of right port, endotracheal and nasogastric tubes. Right large b ore chest tube from inferolateral approach with tip overlying right hilum. BONY STRUCTURES: No acute findings. HARDWARE: None. OTHER: No other significant finding. IMPRESSION: Interval re-expansion of the right lung status post chest tube placement. No significan t pneumothorax. Reading location - IP/workstation name: [email or web address]
[2019-06-15] MEDS ORDERED: RINGERS SOLUTION,LACTATED 1,000 ML IV ONE (11:45)
[2019-06-15 12:44] LABS: ARTERIAL BLOOD BASE EXCESS -8.1 mmol/L; ARTERIAL BLOOD FIO2 100%; ARTERIAL BLOOD H2CO3 1.97 mmol/L (1.05-1.35); ARTERIAL BLOOD HCO3 21.8 mmol/L (20-24); ARTERIAL BLOOD O2 SATURATION 99.7 % (94-98); ARTERIAL BLOOD PCO2 65.3 mmHg (35-45); ARTERIAL BLOOD PO2 409.4 mmHg (80-100); ARTERIAL BLOOD TOTAL CO2 23.8 mmol/L (23-27)
[2019-06-15 12:45] LABS: ARTERIAL BLOOD PH 7.14 (7.35-7.45)
[2019-06-15 13:18] LABS: CREATINE KINASE MB 14.2 ng/mL (<4.55); TROPONIN I 0.048 ng/mL
[2019-06-15] MEDS ORDERED: MIDAZOLAM HCL 50 MG/100 ML RTUINJ ONE (13:30)
[2019-06-15] MEDS: MIDAZOLAM HCL 50 MG/100 ML RTUINJ IV PRN ×2 (13:50→18:17)
[2019-06-15 14:23] LABS: C-REACTIVE PROTEIN 184.6 mg/L (<10.0)
[2019-06-15] MEDS ORDERED: ATROPINE SULFATE INJ 1 MG/10 ML DISP.SYRIN IV ONE (15:41)
[2019-06-15] MEDS ORDERED: EPINEPHRINE INJ 1 MG/10 ML DISP.SYRIN ONE (15:41)
[2019-06-15 18:24] LABS: UNC RESP CORONAVIRUS 229E NOT DETECTED; UNC RESP CORONAVIRUS OC43 NOT DETECTED; UNCRES RHINOVIRUS/ENTEROVIRUS NOT DETECTED
[2019-06-15 18:37] LABS: CREATINE KINASE MB 19.4 ng/mL (<4.55); TROPONIN I 0.025 ng/mL
--- NOTE | 2019-06-15 20:04 | Operative Report ---
Bedside Procedure - History of Present Illness History of Present Illness: INDICATION: Tension pneumothorax PROCEDURE BUSINESS DEVELOPMENT SALES EXECUTIVE: Eliseo Buitrago ATTENDING PHYSICIAN: Dr. Gonzáles CONSENT: Emergent procedure. Patient was hemodynamically unstable with severely increased respiratory pressures. PROCEDURE SUMMARY: A time out was performed and after the chest x-ray was reviewed, the appropriate side was confirmed and marked. My hands were washed immediately prior to the procedure. I wore a surgical cap, mask with protective eyewear, sterile gown and sterile gloves throughout the procedure. The patient was prepped and draped in a sterile manner using chlorhexidine scrub after the patient was positioned in the usual fashion. A total of 4 ml of 1% lidocaine was used to anesthesize the skin, subcutaneous tissue, superior aspect of the rib periosteum and parietal pleura. A 4 cm incision was then made parallel to the rib in the midaxillary line at the level of the 5th rib. The subcutaneous tissue superficial and superior to the rib was dissected bluntly to the level of the pleura. The pleura was then entered bluntly. Air evacuation was noted from the pleural space. The disruption in the parietal pleura was expanded bluntly and a finger was inserted and swept carefully in all directions. A 12 Arabic chest tub e was then inserted using my finger as a guide. The chest tube was directed upward and posteriorly and inserted easily. The chest tube was sutured to the skin at the insertion site, and connected securely with tape to a pleurovac. A sterile occlusive dressing was placed over the insertion site. No immediate complications were noted. A post-procedure chest x-ray shows Chest tube in good position and resolution of pneumothorax. Patients BP improved significantly and is his peak inspiratory pressure. Estimated blood loss is 8. Indication for Procedure: Tensionn Pneumothorax Provider: ELISEO BUITRAGO - Chest Tube Right Time completed: 10:00 Consent obtained: No - Emergent procedure Chest tube pre-insertion: Sterile PPE donned, Chloraprep applied, Sterile drapes applied Size of Arabic Tube (cm): 12 Anesthetic type: 1% Lidocaine mL's of anesthetic: 4 Chest tube post-insertion: Air east heard, Sutured, Position confirmed w/ CXR, Water seal Chest tube drainage: 10 cc Number of attempts: 1 Complications: No
--- NOTE | 2019-06-15 20:11 | Operative Report ---
Bedside Procedure - History of Present Illness History of Present Illness: Procedure: Central line placement Indication: Procedure gamma facilities operator: Attending physician: Consent: Procedure was done emergently for vasoactive support. The procedure was performed emergently and the permission was implied because of the emergent nature. Procedure summary: The [facility][NOTE 3] central line insertion practice form was completed by RN. A timeout was performed. My hands were washed immediately prior to the procedure. I wore surgical cap, mask with protective eyewear, full gown and sterile gloves throughout the procedure. The patient was placed in Trendelenburg position. RIGHT chest region was prepped using chlorhexidine scrub and draped in sterile fashion using a full drape. Sterile probe cover was placed on ultrasound probe. The medial and lateral heads of the sternocleidomastoid muscle were identified as was the carotid pulse. The internal jugular vein was identified using ultrasound. Anesthesia was achieved over the vein using 4 cc of 1% lidocaine. Using real-time out of plane guidance, the introducer needle was inserted into the internal jugular vein under direct ultrasound visualization. Venous blood was withdrawn. The syringe was removed and a guidewire was advanced into the introducer needle. The guidewire was visualized in the internal jugular vein by ultrasound. A small incision was made at the skin surface with a scalpel and the introducer needle was exchanged for a dilator over the guidewire. After appropriate dilation was obtained, the dilator was exchanged over a wire for a 7 Malay, 20 cm central venous catheter. The wire was removed and the catheter was sutured in place at 15 cm. A IO patch was placed and a sterile Sorbaview shield was placed over the catheter at the insertion site. The patient tolerated the procedure well without any hemodynamic compromise. At time of procedure completion, all ports aspirated and flushed properly. Postprocedure x-ray shows central line in proper place. Estimated blood loss is approximately 5 cc. Indication for Procedure: Vasoactive support. Provider: FREDY POLANCO - Central Line Right Time completed: 10:15 Consent obtained: No - Emergent Procedure Central line pre-insertion: Sterile PPE donned, Chloraprep applied, Sterile drapes applied Central line lumen type: Triple Anesthetic type: 1% Lidocaine mL's of anesthesia: 3 Ultrasound guided: Yes CM at insertion site: 15 Line secured with sutures: Yes Central line post-insertion: Blood return from lumens, Biopatch applied, Sutured, Sterile dressing applied, Position confirmed w/ CXR Number of attempts: 1 Complications: No
--- NOTE | 2019-06-15 20:37 | Operative Report ---
Bedside Procedure - History of Present Illness Indication for Procedure: IV access Provider: JOSE FORRESTER - Central Line Right Femoral Time completed: 04:15 Consent obtained: No - Emergent placement Central line pre-insertion: Sterile PPE donned, Chloraprep applied, Sterile drapes applied Central line lumen type: Triple Anesthetic type: 1% Lidocaine mL's of anesthesia: 3 Ultrasound guided: No Line secured with sutures: Yes Central line post-insertion: Blood return from lumens, Biopatch applied, Sutured, Sterile dressing applied Complications: No Notes: 06/15/19 20:30 Procedure: Central line placement Indication: IV access Procedure continuous dryout operator: Jose Forrester Consent: Emergent procedure no consent obtained. The procedure was performed emergently and the permission was implied because of the emergent nature. Procedure summary: The [facility] central line insertion practice form was completed by RN. A timeout was performed. My hands were washed immediately prior to the proce dure. I wore surgical cap, mask with protective eyewear, full gown and sterile gloves throughout the procedure. RIGHT groin was prepped using chlorhexidine scrub and draped in sterile fashion using a full drape. Femoral artery was palpated and the needle was inserted medial to the artery into the right femoral vein. Venous blood was withdrawn. The syringe was removed and a guidewire was advanced into the needle. A small incision was made at the skin surface with a scalpel and the needle was exchanged for a dilator over the guidewire. After appropriate dilation was obtained, the dilator was exchanged over a wire for a 7 Icelandic, 20 cm central venous catheter. The wire was removed and the catheter was sutured in place at 15 cm. A IO patch was placed and a sterile Sorbaview shield was placed over the catheter at the insertion site. The patient tolerated the procedure well without any hemodynamic compromise. At time of procedure completion, all ports aspirated and flushed properly. Estimated blood loss is approximately 10 cc.
[2019-06-15] MEDS: LEVOFLOXACIN 750 MG/D5W RTU 750 MG/150 ML RTUPB IV SCH (21:06)
[2019-06-16] MEDS: IPRATROPIUM/ALBUTEROL 0.5-2.5 MG/3 ML AMPUL NEB SCH ×3 (00:27→15:54)
[2019-06-16] MEDS: METHYLPREDNISOLONE INJ 125 MG/2 ML SDV IV SCH ×2 (01:37→09:13)
[2019-06-16] MEDS: NORMAL SALINE 1000 ML 1,000 ML IV PRN ×2 (04:45→11:35)
[2019-06-16] MEDS: MIDAZOLAM HCL 50 MG/100 ML RTUINJ IV PRN ×2 (05:06→10:40)
[2019-06-16] MEDS: HYDRALAZINE HCL INJ/PF 20 MG/1 ML SDV IV PRN (05:08)
[2019-06-16] MEDS: HEPARIN SOD (PORCINE) 5,000 UNIT/ML 1 ML VIAL SUBCUT SCH ×3 (05:08→21:20)
[2019-06-16 05:52] LABS: ANION GAP 11 (5-19); BLOOD UREA NITROGEN 10 mg/dL (7-20); CALCIUM 8.6 mg/dL (8.4-10.2); CARBON DIOXIDE 19 mmol/L (22-30); CHLORIDE 101 mmol/L (98-107); GLUCOSE 143 mg/dL (75-110); POTASSIUM 3.7 mmol/L (3.6-5.0)
[2019-06-16 06:49] LABS: HEMATOCRIT 40.3 % (37.9-51.0); MEAN CORPUSCULAR HEMOGLOBIN 29.3 pg (27.0-33.4); MEAN CORPUSCULAR HGB CONC 36.3 g/dL (32.0-36.0); PLATELET COUNT 239 10^3/uL (150-450); RED BLOOD COUNT 4.99 10^6/uL (4.35-5.55); RED CELL DISTRIBUTION WIDTH 17.7 % (11.5-14.0); WHITE BLOOD COUNT 22.3 10^3/uL (4.0-10.5)
[2019-06-16 07:55] LABS: MEAN CORPUSCULAR VOLUME 81 fl (80-97)
[2019-06-16 07:56] LABS: HEMOGLOBIN 14.6 g/dL (13.5-17.0)
[2019-06-16 07:57] LABS: ABSOLUTE LYMPHOCYTES# (MANUAL) 1.1 10^3/uL (0.5-4.7); ABSOLUTE MONOCYTES # (MANUAL) 1.8 10^3/uL (0.1-1.4); BAND NEUTROPHILS % (MANUAL) 6 % (3-5); BASOPHILS % (MANUAL) 0 % (0-2); EOSINOPHILS % (MANUAL) 1 % (0-6); LYMPHOCYTES % (MANUAL) 5 % (13-45); MONOCYTES % (MANUAL) 8 % (3-13); SEGMENTED NEUTROPHILS % (MAN) 80 % (42-78); TOTAL CELLS COUNTED 100
[2019-06-16 07:58] LABS: TOXIC GRANULATION 1+
[2019-06-16 07:59] LABS: ANISOCYTOSIS 1+; OVALOCYTES SLIGHT; PLATELET COMMENT ADEQUATE
[2019-06-16] MEDS: PANTOPRAZOLE SODIUM 40 MG VIAL IV SCH (09:13)
[2019-06-16] MEDS ORDERED: NORMAL SALINE 1000 ML 1,000 ML IV PRN (11:59)
--- NOTE | 2019-06-16 12:53 | RADIOLOGY REPORT (SQ) ---
EXAM DESCRIPTION: CHEST SINGLE VIEW IMAGES COMPLETED DATE/TIME: 06/16/2019 12:26 pm REASON FOR STUDY: Respiratory Failure COMPARISON: AP view of the chest from 06/15/2019. EXAM PARAMETERS: NUMBER OF VIEWS: One view. TECHNIQUE: An AP view of the chest was obtained. RADIATION DOSE: NA LIMITATIONS: None. FINDINGS: LUNGS AND PLEURA: The pleural and parenchymal opacities in the inferior left hemithorax ar e unchanged. There is a large bore chest tube in place that projects within the inferior aspect of t he right pleural space. There is no sizable pneumothorax. MEDIASTINUM AND HILAR STRUCTURES: Stable mediastinal and hilar contours. HEART AND VASCULAR STRUCTURES: Stable cardiac silhouette. BONES: No acute findings. HARDWARE: The tip of the left IJ central venous catheter projects within the left brachiocephalic vei n. The tip of the endotracheal tube projects 5.1 cm above the jerry. The tip of the enteric tube p rojects past the gastroesophageal junction and outside the field of view of the radiograph. The tip of the right subclavian vein approach port projects within the right subclavian vein. OTHER: The amount of subcutaneous emphysema in the right hemithorax has decreased. IMPRESSION: The amount of subcutaneous emphysema in the right hemithorax has decreased. There are i s a large bore chest tube in place on the right ; there is no appreciable pneumothorax. The pleural and parenchymal opacities in the inferior aspect of the left hemithorax are unchanged. TECHNICAL DOCUMENTATION: JOB ID: [id number] [employer]- All Rights Reserved Reading location - IP/workstation name: [email or web address]
--- NOTE | 2019-06-16 16:08 | PDOC CRITICAL CARE PROG REPORT ---
General Date:: 06/16/19 ICU Day:: 1 Ventilator Day:: 1 Resuscitation Status: Full Code Events in the past 12 to 24 Hours:: Over the past 24 hours, patient has been status post arrest with tension pneumothorax most likely secondary to chest compressions. Chest tube was placed and tension pneumothorax was resolved. Patient was intubated at time of cardiac arrest and remains intubated on mechanical ventilation. He has a profound metabolic acidosis which is putting a greater demand on his respiratory condition. Reason for ICU Addmission:: status post cardiac arrest - Medications: Medications reviewed and adjusted accordingly: Yes Vasopressors:: Levophed, vasopressin and Chet-Synephrine have all been weaned off. Sedation:: Versed has been lowered throughout the day and has now been turned off. Physical Exam Vital Signs: Temp Pulse Resp BP Pulse Ox 99.1 F 119 H 22 H 64/50 L 100 06/16/19 14:00 06/16/19 08:46 06/16/19 14:00 06/15/19 07:37 06/16/19 14:00 Intake & Output 06/15/19 06/16/19 06/17/19 06:59 06:59 06:59 Intake Total 3772 5267 1391 Output Total 40 1857 435 Balance 3732 3410 956 Weight 71.7 kg 74.3 kg 74.3 kg Weight/Height Weight 74.3 kg Height 5 ft 10 in General appearance: PRESENT: no acute distress Head exam: PRESENT: atraumatic, normocephalic Eye exam: PRESENT: other - Pupils are slow to react to light. Respiratory exam: PRESENT: other - Pleural rub appreciated over the left lower lung field. Improved since yesterday. Cardiovascular exam: PRESENT: RRR, +S1, +S2 Pulses: PRESENT: normal carotid pulses, normal femoral pulses, +2 pedal pulses bilateral Vascular exam: PRESENT: normal capillary refill GI/Abdominal exam: PRESENT: normal bowel sounds, soft. ABSENT: tenderness Extremities exam: ABSENT: pedal edema Musculoskeletal exam: PRESENT: full ROM Neurological exam: PRESENT: motor sensory deficit - Patient does not respond well to verbal stimuli but does retract to discomfort. Tubes/Lines: PRESENT: Endotracheal Tube, Chest Tube, Central Line Laboratory/Radiographs Laboratory Results: 06/16/19 06:05 06/16/19 05:05 06/16/19 06/16/19 06/16/19 05:05 05:05 06:05 WBC Cancelled 22.3 H RBC Cancelled 4.99 Hgb Cancelled 14.6 D Hct Cancelled 40.3 MCV Cancelled 81 D MCH Cancelled 29.3 MCHC Cancelled 36.3 H RDW Cancelled 17.7 H Plt Count Cancelled 239 Seg Neutrophils % Cancelled Not Reportable Sodium 130.6 L Potassium 3.7 Chloride 101 Carbon Dioxide 19 L Anion Gap 11 BUN 10 Creatinine 0.44 L Est GFR ( Amer) > 60 Glucose 143 H Lactic Acid Calcium 8.6 06/16/19 13:22 WBC RBC Hgb Hct MCV MCH MCHC RDW Plt Count Seg Neutrophils % Sodium Potassium Chloride Carbon Dioxide Anion Gap BUN Creatinine Est GFR ( Amer) Glucose Lactic Acid 1.3 Calcium 06/14/19 06/15/19 06/15/19 12:38 03:50 03:50 Creatine Kinase 222 H CK-MB (CK-2) 3.99 Troponin I < 0.012 0.036 06/15/19 06/15/19 06/15/19 12:35 12:35 17:50 Creatine Kinase 590 H 610 H CK-MB (CK-2) 14.20 H Troponin I 0.048 06/15/19 17:50 Creatine Kinase CK-MB (CK-2) 19.40 H Troponin I 0.025 Impressions: Head CT 06/14/19 15:37 IMPRESSION: NORMAL BRAIN CT WITHOUT CONTRAST. EVIDENCE OF ACUTE STROKE: NO. Abdomen/Pelvis CT 06/14/19 19:43 IMPRESSION: No acute intra-abdominal process is identified. The bowel is nonobstructed. Remote postsurgical change. Dependent atelectasis. Moderate hiatal hernia. Imaging is degraded by patient motion, with resultant artifact. The best possible images were obtained.. Chest X-Ray 06/16/19 00:00 IMPRESSION: The amount of subcutaneous emphysema in the right hemithorax has decreased. There are is a large bore chest tube in place on the right ; there is no appreciable pneumothorax. The pleural and parenchymal opacities in the inferior aspect of the left hemithorax are unchanged. All labs, radiographs, diagnostic studies and EKGs were personally reviewed: Yes In addition, reports of radiographic and diagnostic studies were read: Yes Assessment and Plan - Diagnosis (1) Respiratory failure requiring intubation Is this a current diagnosis for this admission?: Yes Plan: Please see below for full review by systems. Patient remains in respiratory failure and continues to have a metabolic acidos is. Tension pneumothorax has resolved. left lung still with significant atelectasis. Respiratory rate and tidal volume increased today to attempt to maintain a minute ventilation appropriate for patient's current pH level. Continue current vent settings. (2) Tension pneumothorax Is this a current diagnosis for this admission?: Yes Plan: Chest tube in place. Tension pneumothorax has resolved. Mild bleeding from chest tube. Small air leak. Plan Summary: ICU day: 1 Neuro: Patient slow to respond after cardiac arrest. All sedation has been lifted at this point and we will observe over the next several hours. If he remains unresponsive, we will obtain a head CT. Pain management/sedation: Sedation currently being held to further evaluate neuro status. Pulmonary: Vent settings: PRVC 600, respiratory rate 22, PEEP 5, FiO2 35%. PaO2 is 409. Patiently originally thought to possibly have a PE given his history of DVT. He has a good AA gradient which would suggest that if he does indeed have a PE, it is not significant enough to cause respiratory distress. He does continue to have a significant metabolic acidosis and would require a minute ventilation of 19 in order to maintain a normal pH. Respiratory distress prior to cardiac arrest possibly secondary to left-sided pneumonia which may have led to overextending of right lung during cardiopulmonary resuscitation and Ambu bag ventilation. He continues to have an elevated white blood cell count which may support this possibility. Increased WBC may also be secondary to starting Solu- Medrol. Steroids were therefore discontinued as patient's pulmonary issues seem to be more metabolic in nature at this time. We will continue to wean ventilator as tolerated. Cardiovascular: Status post cardiac arrest. Patient was weaned off of all vasoactive medications following resolution of cardiac tamponade. Etiology of cardiac arrest still remains unexplained. Indwelling catheters: Left IJ triple-lumen placed on 06/14. Right-sided chest tube placed on 06/14. Chest tube with continued small volume air leak. Maintain low pulmonary pressures. Pneumothorax is resolved on chest x-ray. We will look to remove chest tube over the next 24 to 48 hours if air leak resolves. Heme: DVT prophylaxis: Continue heparin 5000 units subcu every 8. Renal: Mildly hyponatremic, metabolic acidosis. Obtain renal panel in a.m. If no resolution, will consider sodium bicarbonate drip. Continue strict I's and O's. Gastrointestinal: Start tube feeds today. [place] IV started today for GI prophylaxis. : Maintain Szymanski catheter. ID: WBC increased from 17-22.3. This most likely reflects Solu-Medrol administration which has now been discontinued. If no resolution in WBC, consider sputum culture. Right-sided atelectasis likely from tension pneumothorax versus acute infective process. Patient remains afebrile. Lactic acid level obtained today was 1.3. Barriers to discharge from ICU: Patient continues to have acute respiratory failure, metabolic acidosis and poor mental status. Critical Time Critical Time (minutes): 70 Level of Care: ICU -: 1. The care of a critical patient is a dynamic process. This note is a arborist representative synopsis but static in nature. The timeframe for treatments given in order is not necessarily the actual time these treatments may have been done. 2. This patient requires critical care secondary to ongoing requirements for therapy not offered or safe outside the critical care environment. Transfer to a lower level of care will result in altered life or limb morbidity and mortality. 3. Multidisciplinary rounds completed. 4. ABCDE bundle addressed.
[2019-06-16] MEDS: LEVOFLOXACIN 750 MG/D5W RTU 750 MG/150 ML RTUPB IV SCH (21:20)
[2019-06-17] MEDS: IPRATROPIUM/ALBUTEROL 0.5-2.5 MG/3 ML AMPUL NEB SCH ×3 (00:29→16:10)
[2019-06-17] MEDS: MIDAZOLAM HCL 50 MG/100 ML RTUINJ IV PRN (03:35)
[2019-06-17] MEDS: HEPARIN SOD (PORCINE) 5,000 UNIT/ML 1 ML VIAL SUBCUT SCH ×3 (05:02→21:45)
[2019-06-17 05:33] LABS: HEMATOCRIT 35.1 % (37.9-51.0); HEMOGLOBIN 12.6 g/dL (13.5-17.0); MEAN CORPUSCULAR HEMOGLOBIN 29.3 pg (27.0-33.4); MEAN CORPUSCULAR HGB CONC 36.1 g/dL (32.0-36.0); MEAN CORPUSCULAR VOLUME 81 fl (80-97); PLATELET COUNT 251 10^3/uL (150-450); RED BLOOD COUNT 4.31 10^6/uL (4.35-5.55); RED CELL DISTRIBUTION WIDTH 18.2 % (11.5-14.0); WHITE BLOOD COUNT 14.9 10^3/uL (4.0-10.5)
[2019-06-17 05:41] LABS: ALBUMIN 2.4 g/dL (3.5-5.0); ALKALINE PHOSPHATASE 45 U/L (38-126); ANION GAP 7 (5-19); ASPARTATE AMINO TRANSFERASE 34 U/L (17-59); BILIRUBIN,TOTAL 0.5 mg/dL (0.2-1.3); BLOOD UREA NITROGEN 18 mg/dL (7-20); CALCIUM 8.6 mg/dL (8.4-10.2); CARBON DIOXIDE 20 mmol/L (22-30); CHLORIDE 106 mmol/L (98-107); GLUCOSE 114 mg/dL (75-110); POTASSIUM 3.7 mmol/L (3.6-5.0); TOTAL PROTEIN 4.9 g/dL (6.3-8.2)
[2019-06-17 06:19] LABS: ABSOLUTE LYMPHOCYTES# (MANUAL) 0.6 10^3/uL (0.5-4.7); ABSOLUTE MONOCYTES # (MANUAL) 0.1 10^3/uL (0.1-1.4); BAND NEUTROPHILS % (MANUAL) 1 % (3-5); BASOPHILS % (MANUAL) 0 % (0-2); EOSINOPHILS % (MANUAL) 0 % (0-6); LYMPHOCYTES % (MANUAL) 4 % (13-45); MONOCYTES % (MANUAL) 1 % (3-13); SEGMENTED NEUTROPHILS % (MAN) 94 % (42-78); TOTAL CELLS COUNTED 100
[2019-06-17 06:20] LABS: ANISOCYTOSIS 1+; OVALOCYTES SLIGHT; PLATELET COMMENT ADEQUATE; POIKILOCYTOSIS SLIGHT; TEAR DROP CELLS SLIGHT; TOXIC GRANULATION 1+
--- NOTE | 2019-06-17 06:33 | RADIOLOGY REPORT (SQ) ---
EXAM DESCRIPTION: RadLex: XR CHEST 1 VIEW CLINICAL HISTORY: 53 years Male; Respiratory failure, Chest tube, ETT; FINDINGS: Since yesterday, endotracheal tube remains in place, 6 cm above jerry. Left IJ line tip in the SVC. Right chest drain remains in place. Enteric tube extends into the stomach. As on prior exam, the distal portion of the right subclavian Port-A-Cath is malpositioned, likely extending retrograde in the right subclavian vein. Lungs are unchanged, with persistent partial atelectasis versus infiltrate in the left lower lobe. No pneumothorax. IMPRESSION: 1. No significant change
[2019-06-17] MEDS: PANTOPRAZOLE SODIUM 40 MG VIAL IV SCH (09:03)
[2019-06-17] MEDS: HYDRALAZINE HCL INJ/PF 20 MG/1 ML SDV IV PRN (13:20)
[2019-06-17 13:45] LABS: ARTERIAL BLOOD BASE EXCESS -4.6 mmol/L; ARTERIAL BLOOD H2CO3 0.71 mmol/L (1.05-1.35); ARTERIAL BLOOD HCO3 17.1 mmol/L (20-24); ARTERIAL BLOOD PCO2 23.5 mmHg (35-45); ARTERIAL BLOOD PH 7.48 (7.35-7.45); ARTERIAL BLOOD TOTAL CO2 17.8 mmol/L (23-27)
[2019-06-17 13:46] LABS: ARTERIAL BLOOD FIO2 35%
--- NOTE | 2019-06-17 16:49 | PDOC CRITICAL CARE PROG REPORT ---
General Date:: 06/17/19 ICU Day:: 2 Ventilator Day:: 2 Resuscitation Status: Full Code Events in the past 12 to 24 Hours:: 06/15: Over the past 24 hours, patient has been status post arrest with tension pneumothorax most likely secondary to chest compressions. Chest tube was placed and tension pneumothorax was resolved. Patient was intubated at time of cardiac arrest and remains intubated on mechanical ventilation. He has a profound metabolic acidosis which is putting a greater demand on his respiratory condition. 06/16: No acute events over the past 24 hours. Patient has been weaned off of Versed and is unfortunately still not responsive. Plan is to continue off of any sedation overnight and if no significant change in mental status, will obtain a head CT in the morning. Reason for ICU Addmission:: status post cardiac arrest - Medications: Medications reviewed and adjusted accordingly: Yes Physical Exam Vital Signs: Temp Pulse Resp BP Pulse Ox 99.1 F 122 H 22 H 64/50 L 100 06/17/19 11:00 06/17/19 16:00 06/17/19 16:00 06/15/19 07:37 06/17/19 16:00 Intake & Output 06/16/19 06/17/19 06/18/19 06:59 06:59 06:59 Intake Total 5417 1568 50 Output Total 1857 1323 Balance 3560 245 50 Weight 74.3 kg 76.2 kg Weight/Height Weight 76.2 kg Height 5 ft 10 in General appearance: PRESENT: no acute distress Head exam: PRESENT: atraumatic Eye exam: PRESENT: other - Pupils slow to react. Ear exam: PRESENT: normal external ear exam. ABSENT: bleeding, drainage Mouth exam: PRESENT: moist Neck exam: PRESENT: full ROM. ABSENT: carotid bruit, JVD Respiratory exam: PRESENT: clear to auscultation mindy. ABSENT: rales, rhonchi, wheezes Cardiovascular exam: PRESENT: RRR, +S1, +S2 Pulses: PRESENT: normal radial pulses, normal femoral pulses Vascular exam: PRESENT: normal capillary refill GI/Abdominal exam: PRESENT: normal bowel sounds, soft. ABSENT: distended Extremities exam: PRESENT: full ROM. ABSENT: clubbing, joint swelling, pedal edema Musculoskeletal exam: PRESENT: other - S/p left BKA. Neurological exam: PRESENT: CN II-XII grossly intact, other - Patient remains unresponsive. Skin exam: PRESENT: intact, normal color, warm. ABSENT: abrasion, mottled, pallor, petechiae, rash, skin tears Tubes/Lines: PRESENT: Endotracheal Tube, Chest Tube, Central Line, Arterial Catheter Laboratory/Radiographs Laboratory Results: 06/17/19 05:08 06/17/19 05:08 06/17/19 06/17/19 06/17/19 05:08 05:08 13:35 WBC 14.9 H RBC 4.31 L Hgb 12.6 L Hct 35.1 L MCV 81 MCH 29.3 MCHC 36.1 H RDW 18.2 H Plt Count 251 Seg Neutrophils % Not Reportable Carbonic Acid 0.71 L HCO3/H2CO3 Ratio 24:1 ABG pH 7.48 H ABG pCO2 23.5 L ABG pO2 98.0 ABG HCO3 17.1 L ABG O2 Saturation 98.0 ABG Base Excess -4.6 FiO2 35% Sodium 133.1 L Potassium 3.7 Chloride 106 Carbon Dioxide 20 L Anion Gap 7 BUN 18 Creatinine 0.58 Est GFR ( Amer) > 60 Glucose 114 H Calcium 8.6 Total Bilirubin 0.5 AST 34 Alkaline Phosphatase 45 Total Protein 4.9 L Albumin 2.4 L 06/15/19 12:35 Tracheal Aspirate Gram Stain - Final 06/15/19 12:35 Tracheal Aspirate Sputum Culture - Final NORMAL GUSTABO 06/14/19 06/15/19 06/15/19 12:38 03:50 03:50 Creatine Kinase 222 H CK-MB (CK-2) 3.99 Troponin I < 0.012 0.036 06/15/19 06/15/19 06/15/19 12:35 12:35 17:50 Creatine Kinase 590 H 610 H CK-MB (CK-2) 14.20 H Troponin I 0.048 06/15/19 17:50 Creatine Kinase CK-MB (CK-2) 19.40 H Troponin I 0.025 Impressions: Head CT 06/14/19 15:37 IMPRESSION: NORMAL BRAIN CT WITHOUT CONTRAST. EVIDENCE OF ACUTE STROKE: NO. Abdomen/Pelvis CT 06/14/19 19:43 IMPRESSION: No acute intra-abdominal process is identified. The bowel is nonobstructed. Remote postsurgical change. Dependent atelectasis. Moderate hiatal hernia. Imaging is degraded by patient motion, with resultant artifact. The best possible images were obtained.. Chest X-Ray 06/16/19 22:15 IMPRESSION: 1. No significant change All labs, radiographs, diagnostic studies and EKGs were personally reviewed: Yes In addition, reports of radiographic and diagnostic studies were read: Yes Assessment and Plan - Diagnosis (1) Respiratory failure requiring intubation Is this a current diagnosis for this admission?: Yes Plan: Please see below for full review by systems. Patient remains in respiratory failure. Continues to have a metabolic acidosis however is very well compensated through mechanical ventilation. Tension pneumothorax has resolved. left lung atelectasis is improving Respiratory rate decreased to 20 and tidal volume decreased to 550. Continue current vent settings. (2) Tension pneumothorax Is this a current diagnosis for this admission?: Yes Plan: Chest tube in place. Tension pneumothorax has resolved. Mild bleeding from chest tube. Air leak has resolved. Plan Summary: ICU day: 2 Neuro: Patient slow to respond after cardiac arrest. All sedation has been lifted at this point and we will observe over the 12. If he remains unresp onsive, we will obtain a head CT. Pain management/sedation: Sedation currently being held to further evaluate neuro status. Pulmonary: Vent settings: PRVC 550, respiratory rate 20, PEEP 5, FiO2 35%. ABG done this afternoon: 7.43/23.5/98/17.1. Patiently originally thought to possibly have a PE given his history of DVT. He has a good AA gradient which would suggest that if he does indeed have a PE, it is not significant enough to cause respiratory distress. He does continue to have a significant metabolic acidosis. Respiratory distress prior to cardiac arrest possibly secondary to le ft-sided pneumonia which may have led to overextending of right lung during cardiopulmonary resuscitation and Ambu bag ventilation. He continues to have an elevated white blood cell count which may support this possibility. Increased WBC may also be secondary to starting Solu-Medrol. Steroids were therefore discontinued as patient's pulmonary issues seem to be more metabolic in nature at this time. We will continue to wean ventilator as tolerated. Cardiovascular: Status post cardiac arrest. Patient was weaned off of all vasoactive medications following resolution of cardiac tamponade. Etiology of cardiac arrest still remains unexplained. Indwelling catheters: Left IJ triple-lumen placed on 06/14. Right-sided chest tube placed on 06/14. Air leak on chest tube has resolved. Maintain low pulmonary pressures. Pneumothorax is resolved on chest x-ray. We will look to remove chest tube over the next 24 to 48 hours. Heme: DVT prophylaxis: Continue heparin 5000 units subcu every 8. Renal: Mildly hyponatremic, metabolic acidosis. I will start a sodium bicarbonate drip today. Continue strict I's and O's. Gastrointestinal: Start tube feeds today. Protonix IV started today for GI prophylaxis. : Maintain Szymanski catheter. ID: WBC improved today. This most likely reflects Solu-Medrol administration which has now been discontinued. Right-sided atelectasis likely from tension pneumothorax versus acute infective process. Patient remains afebrile. Lactic acid level obtained yesterday was 1.3. Barriers to discharge from ICU: Patient continues to have acute respiratory failure, metabolic acidosis and poor mental status. Critical Time Critical Time (minutes): 65 Level of Care: ICU -: 1. The care of a critical patient is a dynamic process. This note is a sales representative church furniture synopsis but static in nature. The timeframe for treatments given in order is not necessarily the actual time these treatments may have been done. 2. This patient requires critical care secondary to ongoing requirements for therapy not offered or safe outside the critical care environment. Transfer to a lower level of care will result in altered life or limb morbidity and mortality. 3. Multidisciplinary rounds completed. 4. ABCDE bundle addressed.
[2019-06-17] MEDS: LEVOFLOXACIN 750 MG/D5W RTU 750 MG/150 ML RTUPB IV SCH (21:41)
[2019-06-17] MEDS ORDERED: LABETALOL HCL INJ 20 MG/4 ML DISP.SYRIN IV PRN (22:15)
[2019-06-17] MEDS: ALBUMIN HUMAN 12.5 GM/50 ML RTUINJ IV SCH ×4 (23:09→23:42)
[2019-06-18] MEDS: IPRATROPIUM/ALBUTEROL 0.5-2.5 MG/3 ML AMPUL NEB SCH ×4 (00:04→23:37)
[2019-06-18] MEDS: HEPARIN SOD (PORCINE) 5,000 UNIT/ML 1 ML VIAL SUBCUT SCH ×3 (05:47→21:19)
[2019-06-18 06:08] LABS: ABSOLUTE LYMPHOCYTES (AUTO) 0.6 10^3/uL (0.5-4.7); ABSOLUTE MONOCYTES (AUTO) 0.5 10^3/uL (0.1-1.4); ABSOLUTE NEUT (AUTO) 9.2 10^3/uL (1.7-8.2); ARTERIAL BLOOD BASE EXCESS -1.4 mmol/L; ARTERIAL BLOOD H2CO3 0.77 mmol/L (1.05-1.35); ARTERIAL BLOOD HCO3 20.1 mmol/L (20-24); ARTERIAL BLOOD O2 SATURATION 94.3 % (94-98); ARTERIAL BLOOD PCO2 25.5 mmHg (35-45); ARTERIAL BLOOD PH 7.51 (7.35-7.45); ARTERIAL BLOOD PO2 62.1 mmHg (80-100); ARTERIAL BLOOD TOTAL CO2 20.9 mmol/L (23-27); BASOPHILS % (AUTO) 0.1 % (0-2); HEMATOCRIT 31.9 % (37.9-51.0); HEMOGLOBIN 11.7 g/dL (13.5-17.0); LYMPHOCYTES % (AUTO) 6.2 % (13-45); MEAN CORPUSCULAR HGB CONC 36.7 g/dL (32.0-36.0); MEAN CORPUSCULAR VOLUME 82 fl (80-97); MONOCYTES % (AUTO) 4.6 % (3-13); PLATELET COUNT 200 10^3/uL (150-450); RED CELL DISTRIBUTION WIDTH 17.8 % (11.5-14.0); SEGMENTED NEUTROPHILS % (AUTO) 89.1 % (42-78); TOTAL CELLS COUNTED % (AUTO) 100 %; WHITE BLOOD COUNT 10.3 10^3/uL (4.0-10.5)
[2019-06-18 06:09] LABS: ARTERIAL BLOOD FIO2 21%
[2019-06-18 06:31] LABS: ALKALINE PHOSPHATASE 35 U/L (38-126); ANION GAP 9 (5-19); ASPARTATE AMINO TRANSFERASE 36 U/L (17-59); BILIRUBIN,DIRECT 0.1 mg/dL (0.0-0.4); BILIRUBIN,TOTAL 0.6 mg/dL (0.2-1.3); BLOOD UREA NITROGEN 25 mg/dL (7-20); CALCIUM 8.9 mg/dL (8.4-10.2); CARBON DIOXIDE 19 mmol/L (22-30); CHLORIDE 109 mmol/L (98-107); GLUCOSE 102 mg/dL (75-110); PHOSPHORUS 2.3 mg/dL (2.5-4.5); POTASSIUM 3.5 mmol/L (3.6-5.0); TOTAL PROTEIN 5.4 g/dL (6.3-8.2)
--- NOTE | 2019-06-18 06:43 | RADIOLOGY REPORT (SQ) ---
CLINICAL HISTORY: RESPIRATORY FAILURE COMPARISON: 06/09/2019. TECHNIQUE: XR CHEST 1 VIEW 06/18/2019 6:00 AM CDT FINDINGS: The heart is borderline in size. Lungs are clear without consolidation, atelectasis, mass or edema. There may be a small left pleural effusion. There is no pneumothorax. There are no acute osseous findings. Right chest port is unchanged. Endotracheal tube, nasogastric tube and left central line are unchanged. There is subcutaneous air along the right lateral chest wall. IMPRESSION: No significant change.
[2019-06-18] MEDS: PANTOPRAZOLE SODIUM 40 MG VIAL IV SCH (11:51)
[2019-06-18] MEDS: RINGERS SOLUTION,LACTATED 1,000 ML IV PRN (13:40)
--- NOTE | 2019-06-18 19:31 | PDOC CRITICAL CARE PROG REPORT ---
General Date:: 06/18/19 ICU Day:: 3 Ventilator Day:: 3 Resuscitation Status: Full Code Events in the past 12 to 24 Hours:: 06/15: Over the past 24 hours, patient has been status post arrest with tension pneumothorax most likely secondary to chest compressions. Chest tube was placed and tension pneumothorax was resolved. Patient was intubated at time of cardiac arrest and remains intubated on mechanical ventilation. He has a profound metabolic acidosis which is putting a greater demand on his respiratory condition. 06/16: No acute events over the past 24 hours. Patient has been weaned off of Versed and is unfortunately still not responsive. Plan is to continue off of any sedation overnight and if no significant change in mental status, will obtain a head CT in the morning. 06/17: Patient is a little bit more responsive today, although still not alert. Hopeful that he could still make a strong neurologic recovery. His ventilator has been weaned to a pressure support of 16 to 20 cm H2O. Chest tube has minimal output and no air leak on suction. I will look to remove the chest tube today. Reason for ICU Addmission:: status post cardiac arrest - Medications: Medications reviewed and adjusted accordingly: Yes Sedation:: Patient remains off of any sedatives. Physical Exam Vital Signs: Temp Pulse Resp BP Pulse Ox 100.4 F 105 H 29 H 64/50 L 100 06/18/19 15:00 06/18/19 08:44 06/18/19 15:00 06/15/19 07:37 06/18/19 15:00 Intake & Output 06/17/19 06/18/19 06/19/19 06:59 06:59 06:59 Intake Total 1568 200 Output Total 1323 858 55 Balance 245 -658 -55 Weight 76.2 kg 74.6 kg Weight/Height Weight 74.6 kg Height 5 ft 10 in General appearance: PRESENT: no acute distress Head exam: PRESENT: atraumatic, normocephalic Eye exam: PRESENT: PERRLA Ear exam: PRESENT: normal external ear exam Mouth exam: PRESENT: moist, neck supple Neck exam: ABSENT: carotid bruit, JVD, tracheal deviation Respiratory exam: PRESENT: unlabored. ABSENT: rales, rhonchi, stridor Cardiovascular exam: PRESENT: RRR, +S1, +S2 Pulses: PRESENT: normal carotid pulses, +2 pedal pulses bilateral GI/Abdominal exam: PRESENT: normal bowel sounds Neurological exam: PRESENT: altered, CN II-XII grossly intact Skin exam: PRESENT: intact Tubes/Lines: PRESENT: Endotracheal Tube, Chest Tube, Central Line Laboratory/Radiographs Laboratory Results: 06/18/19 05:53 06/18/19 05:53 06/18/19 06/18/19 06/18/19 05:53 05:53 05:53 WBC 10.3 RBC 3.90 L Hgb 11.7 L Hct 31.9 L MCV 82 MCH 30.0 MCHC 36.7 H RDW 17.8 H Plt Count 200 Seg Neutrophils % 89.1 H Carbonic Acid 0.77 L HCO3/H2CO3 Ratio 26:1 ABG pH 7.51 H ABG pCO2 25.5 L ABG pO2 62.1 L ABG HCO3 20.1 ABG O2 Saturation 94.3 ABG Base Excess -1.4 FiO2 21% Sodium 137.2 Potassium 3.5 L Chloride 109 H Carbon Dioxide 19 L Anion Gap 9 BUN 25 H Creatinine 0.49 L Est GFR ( Amer) > 60 Glucose 102 Calcium 8.9 Phosphorus 2.3 L Magnesium 2.4 H Total Bilirubin 0.6 AST 36 Alkaline Phosphatase 35 L Total Protein 5.4 L Albumin 3.0 L 06/14/19 06/15/19 06/15/19 12:38 03:50 03:50 Creatine Kinase 222 H CK-MB (CK-2) 3.99 Troponin I < 0.012 0.036 06/15/19 06/15/19 06/15/19 12:35 12:35 17:50 Creatine Kinase 590 H 610 H CK-MB (CK-2) 14.20 H Troponin I 0.048 06/15/19 17:50 Creatine Kinase CK-MB (CK-2) 19.40 H Troponin I 0.025 Impressions: Head CT 06/14/19 15:37 IMPRESSION: NORMAL BRAIN CT WITHOUT CONTRAST. EVIDENCE OF ACUTE STROKE: NO. Abdomen/Pelvis CT 06/14/19 19:43 IMPRESSION: No acute intra-abdominal process is identified. The bowel is nonobstructed. Remote postsurgical change. Dependent atelectasis. Moderate hiatal hernia. Imaging is degraded by patient motion, with resultant artifact. The best possible images were obtained.. Chest X-Ray 06/18/19 06:00 IMPRESSION: No significant change. All labs, radiographs, diagnostic studies and EKGs were personally reviewed: Yes In addition, reports of radiographic and diagnostic studies were read: Yes Assessment and Plan - Diagnosis (1) Respiratory failure requiring intubation Is this a current diagnosis for this admission?: Yes Plan: Please see below for full review by systems. Patient remains in respiratory failure. Continues to have a metabolic acidosis however is very well compensated through mechanical ventilation. Tension pneumothorax has resolved. Left lung atelectasis continues to improve. Patient tolerated spontaneous mode of ventilation for most of the day today. Continue to wean as tolerated. We will extubate when patient can show better airway protection. (2) Tension pneumothorax Is this a current diagnosis for this admission?: Yes Plan: Chest tube in place. Tension pneumothorax has resolved. Mild bleeding from chest tube. Air leak has resolved. Will remove chest tube today. Plan Summary: ICU day: 3 Neuro: Patient slow to respond after cardiac arrest. He is now opening his eyes spontaneously but is not following commands. Pain management/sedation: Sedation currently being held to further evaluate neuro status. Pulmonary: Vent settings: Patient tolerating spontaneous ventilation today with pressure support of 16-20. He continues to have metabolic acidosis but has compensated well. Cardiovascular: Status post cardiac arrest. Patient was weaned off of all vasoactive medications following resolution of cardiac tamponade. Etiology of cardiac arrest still remains unexplained. Indwelling catheters: Left IJ triple-lumen placed on 06/14. Right-sided chest tube placed on 06/14. Air leak on chest tube has resolved. Maintain low pulmonary pressures. Pneumothorax is resolved on chest x-ray. We will look to remove chest tube today Heme: DVT prophylaxis: Continue heparin 5000 units subcu every 8. Renal: Hyponatremia improving. Patient continues to have a metabolic acidosis. Normal saline change to LR. Continue strict I's and O's. Gastrointestinal: We will start tube feeds today. Protonix IV started today for GI prophylaxis. : Maintain Szymanski catheter. ID: WBC needs to improve. Solu-Medrol discontinued. Patient remains afebrile. Barriers to discharge from ICU: Patient continues to have acute respiratory failure, metabolic acidosis and poor mental status. Critical Time Critical Time (minutes): 75 Level of Care: ICU -: 1. The care of a critical patient is a dynamic process. This note is a patient accounting representative synopsis but static in nature. The timeframe for treatments given in order is not necessarily the actual time these treatments may have been done. 2. This patient requires critical care secondary to ongoing requirements for therapy not offered or safe outside the critical care environment. Transfer to a lower level of care will result in altered life or limb morbidity and mortality. 3. Multidisciplinary rounds completed. 4. ABCDE bundle addressed.
[2019-06-18] MEDS: LEVOFLOXACIN 750 MG/D5W RTU 750 MG/150 ML RTUPB IV SCH (21:17)
[2019-06-18] MEDS: PHOSPHORUS #1 250 MG TABLET NG SCH (21:19)
[2019-06-18] MEDS ORDERED: POTASSIUM CHLORIDE 20 MEQ PACKET NG ONE (22:00)
[2019-06-18] MEDS ORDERED: MIDAZOLAM 2 MG/2 ML INJ ONE ×2 (23:13→23:25)
[2019-06-18] MEDS ORDERED: VECURONIUM BROMIDE INJ 10 MG VIAL IV ONE (23:15)
[2019-06-18] MEDS ORDERED: FENTANYL CITRATE INJ/PF 100 MCG/2 ML AMPUL ONE (23:15)
[2019-06-19 00:41] LABS: ARTERIAL BLOOD BASE EXCESS -5.2 mmol/L; ARTERIAL BLOOD H2CO3 0.85 mmol/L (1.05-1.35); ARTERIAL BLOOD HCO3 17.9 mmol/L (20-24); ARTERIAL BLOOD O2 SATURATION 99.3 % (94-98); ARTERIAL BLOOD PCO2 28.1 mmHg (35-45); ARTERIAL BLOOD PH 7.42 (7.35-7.45); ARTERIAL BLOOD PO2 176.1 mmHg (80-100); ARTERIAL BLOOD TOTAL CO2 18.8 mmol/L (23-27)
[2019-06-19 00:55] LABS: ARTERIAL BLOOD FIO2 45%
--- NOTE | 2019-06-19 01:08 | RADIOLOGY REPORT (SQ) ---
EXAM DESCRIPTION: [facility]Lex: XR CHEST 1 VIEW CLINICAL HISTORY: 53 years Male; reintubation; confirm ETT placement; FINDINGS: Since yesterday, right chest drain remains in place, with minimal right apical pneumothorax, decreased since prior study. No right pleural effusion. Increased density in the left base is similar. Enteric tube extends into the stomach. Left IJ line tip is at the junction of SVC and brachiocephalic vein. Endotracheal tube 6 cm above jerry. Right subclavian port is unchanged, with tip extending retrograde in the right subclavian vein as on prior exam. IMPRESSION: Minimal right pneumothorax, smaller since yesterday. Otherwise unchanged.
[2019-06-19] MEDS ORDERED: PHOSPHORUS #1 250 MG TABLET ONE (01:21)
[2019-06-19] MEDS: PHOSPHORUS #1 250 MG TABLET NG SCH ×4 (01:30→21:42)
--- NOTE | 2019-06-19 01:57 | Operative Report ---
Bedside Procedure - History of Present Illness History of Present Illness: Mr Vásquez is a 53 year-old male gentlemen with a history of polysubstance abuse, colon CA s/p mediport placement, DVT with resultant left BKA whom experienced cardiac arrest on 06/15/2019 and has been in the ICU on mechanical ventilation ever since. He has not yet been liberated from the ventilator given his lingering encephalopathy which has very slowly improved after stopping versed infusion, though there is concern that he may have suffered from a hypoxic brain injury related to cardiac arrest. Recent neuro exam this evening: opens his eyes spontaneously intermittently, though does not track. Withdraws extremities x4 to central noxious stimuli, but does not localize. Pupils 6 mm and brisk bilaterally. I was notified by RN that Mr Vásquez's endotracheal tube became dislodged around 23:00 pm from 20 cm to 13 cm during a bed bath for which he was placed on volume control with no exhaled tidal volume returned combined with a very loud cuff leak. It would not have been safe to just shove the tube back down given the risk of esophageal intubation with resultant hypoxia. Therefore, the decision was made to re-intubate Mr Vásquez as he was very tachpneic with significant work of breathing using all accessory muscles. He was never hypoxic as a non- rebreather mask was placed immediately. Upon further investigation, it appears the ETT was not under tension with the tubing during the bath and that the endotracheal tube mazariegos may have been just loose enough where the securement strap loops around the ETT to allow the tube to slide out. Neuro status unchanged after procedural medications wore off. Procedure: Intubation Indication: acute respiratory failure Proceduralist: BARRY Le Anesthesia/meds: 12 mg Versed, 100 mcg fentanyl, 10 mg Vecuronium Attempts: 1 Complications: none This is an emergent procedure, therefore phone consent was not obtained. The patient was placed in a supine position with head of bed elevated to 20 degrees. Existing brant-gastric tube was placed on suction in case ambu bag assisted ventilations were required with a goal of preventing aspiration. 100 mcg of Fentanyl followed by 4 mg of Versed was administered for which patient remained fully awake (Hx of polysubstance abuse). Therefore, an additional 8 mg of Versed was administered achieving adequate sedation, then followed by 10 mg of Vecuronium. No ambu bag assisted ventilations were necessary, simply apneic hyperoxygenation prevented hypoxia. A hyper-angulated size 4 blade was introduced into the oropharynx using video laryngoscopy without any trauma to teeth or surrounding structures. The OG tube was visualized entering the esophagus and with a subtle anterior lift of the blade, the epiglottis moved anteriorly allowing for visualization of the vocal cords without patient gagging. A 7.5-faroese endotracheal tube was inserted and visualized going through the vocal cords with ease. The stylette was removed. Colorimetric change was visualized on the CO2 meter. Tidaling condensation was visualized in ETT. Breath sounds were heard in both lung iraheta equally. The endotracheal tube was placed at 22 cm, measured at the teeth. Time of successful re-intubation was 23:30 pm. A chest x-ray was ordered confirming the ETT to be ~5.5 cm above the jerry for which the ETT was advanced to 24 cm at the teeth and re-secured well. No pneumothorax on CXR. Indication for Procedure: acute respiratory failure Date: 06/18/19 Provider: LAWRENCE VEGA
[2019-06-19] MEDS: RINGERS SOLUTION,LACTATED 1,000 ML IV PRN ×2 (02:15→12:22)
[2019-06-19 04:06] LABS: ABSOLUTE LYMPHOCYTES (AUTO) 1.7 10^3/uL (0.5-4.7); ABSOLUTE MONOCYTES (AUTO) 0.8 10^3/uL (0.1-1.4); ABSOLUTE NEUT (AUTO) 7.8 10^3/uL (1.7-8.2); BASOPHILS % (AUTO) 0.1 % (0-2); HEMATOCRIT 32.3 % (37.9-51.0); HEMOGLOBIN 11.8 g/dL (13.5-17.0); LYMPHOCYTES % (AUTO) 16.4 % (13-45); MEAN CORPUSCULAR HGB CONC 36.5 g/dL (32.0-36.0); MEAN CORPUSCULAR VOLUME 82 fl (80-97); MONOCYTES % (AUTO) 7.9 % (3-13); PLATELET COUNT 166 10^3/uL (150-450); RED BLOOD COUNT 3.94 10^6/uL (4.35-5.55); RED CELL DISTRIBUTION WIDTH 17.8 % (11.5-14.0); SEGMENTED NEUTROPHILS % (AUTO) 75.6 % (42-78); TOTAL CELLS COUNTED % (AUTO) 100 %; WHITE BLOOD COUNT 10.3 10^3/uL (4.0-10.5)
[2019-06-19 04:13] LABS: ALBUMIN 2.7 g/dL (3.5-5.0); ALKALINE PHOSPHATASE 38 U/L (38-126); ANION GAP 5 (5-19); ASPARTATE AMINO TRANSFERASE 51 U/L (17-59); BILIRUBIN,TOTAL 0.7 mg/dL (0.2-1.3); BLOOD UREA NITROGEN 21 mg/dL (7-20); CALCIUM 8.3 mg/dL (8.4-10.2); CARBON DIOXIDE 22 mmol/L (22-30); CHLORIDE 109 mmol/L (98-107); GLUCOSE 93 mg/dL (75-110); PHOSPHORUS 2.6 mg/dL (2.5-4.5); POTASSIUM 3.8 mmol/L (3.6-5.0); TOTAL PROTEIN 5.1 g/dL (6.3-8.2)
[2019-06-19] MEDS ORDERED: FENTANYL CITRATE INJ/PF 100 MCG/2 ML AMPUL IV ONE (04:45)
[2019-06-19] MEDS ORDERED: MIDAZOLAM 2 MG/2 ML INJ IV ONE (04:45)
[2019-06-19] MEDS ORDERED: VECURONIUM BROMIDE INJ 10 MG VIAL IV ONE (04:45)
[2019-06-19] MEDS: HEPARIN SOD (PORCINE) 5,000 UNIT/ML 1 ML VIAL SUBCUT SCH ×3 (05:24→21:42)
--- NOTE | 2019-06-19 06:38 | RADIOLOGY REPORT (SQ) ---
AP Portable chest: 06/19/2019 5:36 AM CDT History: 53-year old patient with respiratory failure. Comparison: Chest radiograph performed 06/19/2019. Findings: The cardiomediastinal silhouette is enlarged. There is a trace right apical pneumothorax present. Airspace opacity seen at the left lung base associated with trace left effusion. An endotracheal tube tip projects at the level the jerry. The nasogastric tube traverses below the left hemidiaphragm. The tip is not seen on this examination. The right subclavian Vrilam-n-Yjxw catheter tip is coiled back upon itself, similar to prior imaging. The previously seen left jugular catheters no longer apparent. There is a right thoracostomy tube at the right midlung. There is subcutaneous emphysema noted. Impression: There is a similar trace right apical pneumothorax. The right Yapzuf-v-Twty catheter tip is again coiled back upon itself. There are airspace opacities at the left lung base associated with trace left effusion.
[2019-06-19] MEDS: IPRATROPIUM/ALBUTEROL 0.5-2.5 MG/3 ML AMPUL NEB SCH ×2 (08:26→16:06)
[2019-06-19 09:11] LABS: APPEARANCE,URINE CLEAR; BILIRUBIN,URINE NEGATIVE (NEGATIVE); COLOR,URINE YELLOW; GLUCOSE, URINE NEGATIVE (NEGATIVE); KETONES,URINE NEGATIVE (NEGATIVE); LEUKOCYTE ESTERASE,URINE NEGATIVE (NEGATIVE); NITRITE,URINE NEGATIVE (NEGATIVE); PROTEIN,URINE NEGATIVE (NEGATIVE); URINE SPECIFIC GRAVITY 1.019; UROBILINOGEN,URINE NEGATIVE mg/dL (<2.0)
[2019-06-19 10:13] LABS: C DIFFICILE GDH NEGATIVE (NEGATIVE)
[2019-06-19] MEDS: PANTOPRAZOLE SODIUM 40 MG VIAL IV SCH (10:47)
--- NOTE | 2019-06-19 12:01 | RADIOLOGY REPORT (SQ) ---
EXAM DESCRIPTION: CHEST SINGLE VIEW IMAGES COMPLETED DATE/TIME: 06/19/2019 11:49 am REASON FOR STUDY: Post Right chest tube removal COMPARISON: Earlier the same day. NUMBER OF VIEWS: One view. TECHNIQUE: Single frontal radiographic image of the chest acquired. LIMITATIONS: None. FINDINGS: LUNGS AND PLEURA: Estimated less than 10% right apical pneumothorax not significantly fairchild ged. Small left pleural effusion unchanged. MEDIASTINUM AND HEART: Stable heart size and mediastinal structures. SUPPORT DEVICES: Interval removal of right chest tube. BONY STRUCTURES: No acute findings. HARDWARE: None. OTHER: No other significant finding. IMPRESSION: Unchanged small right apical pneumothorax status post right chest tube removal. Reading location - IP/workstation name: [email or web address]
--- NOTE | 2019-06-19 19:09 | RADIOLOGY REPORT (SQ) ---
EXAM DESCRIPTION: CTA HEAD IMAGES COMPLETED DATE/TIME: 06/19/2019 6:52 pm REASON FOR STUDY: rule out blood clot COMPARISON: None. TECHNIQUE: Post IV contrast scanning, thin section axial imaging through the brain to evaluate the a rterial structures. Source and MIP images are saved and reviewed on PACS. Advanced 3D imaging as volume-rendering, MIPs, SSD performed? yes All CT scanners at this facility use dose modulation, iterative reconstruction, and/or weight based d osing when appropriate to reduce radiation dose to as low as reasonably achievable (ALARA). [facility]: Dose Right [facility]: CareDose [facility]: Dose Right [facility]: Teradose 4D [facility]: [employer] CONTRAST TYPE AND DOSE: contrast/concentration: Isovue 350.00 mg/ml; Total Contrast Delivered: 140.0 ml; Total Saline Delivered: 124.2 ml RENAL FUNCTION: BUN 21 creatinine 0.9. LIMITATIONS: Limited contrast bolus. FINDINGS: [place] S[place]: The anterior, middle, posterior cerebral arteries are all patent. No ev idence of aneurysm or focal stenosis. The more distal branches of the left middle cerebral artery ar e opacified but somewhat attenuated compared to the right POSTERIOR CIRCULATION: The distal vertebral arteries are patent as is the basilar artery. No aneurysm . BRAIN: No gross enhancing lesions as visualized. BONES: Intact as visualized. SINUSES: No fluid or mucosal thickening. OTHER: No other significant finding. IMPRESSION: NO OCCLUSION OF THE MAJOR INTRACRANIAL ARTERIAL VESSELS. THE MORE DISTAL BRANCHES OF TH E LEFT MIDDLE CEREBRAL ARTERY ARE SOMEWHAT ATTENUATED COMPARED TO THE RIGHT. MAY BE ARTIFACT DUE TO CONTRAST BOLUS AND POSITIONING OF THE PATIENT'S HEAD BUT CANNOT EXCLUDE THE POSSIBILITY OF VASOSPASM. TECHNICAL DOCUMENTATION: JOB ID: [id number] Quality ID # [id number]: Final reports with documentation of one or more dose reduction techniques (e.g., Au tomated exposure control, adjustment of the mA and/or kV according to patient size, use of iterative reconstruction technique) 2010 [employer]- All Rights Reserved Reading location - IP/workstation name: [email or web address]
--- NOTE | 2019-06-19 19:13 | RADIOLOGY REPORT (SQ) ---
EXAM DESCRIPTION: CTA NECK IMAGES COMPLETED DATE/TIME: 06/19/2019 6:54 pm REASON FOR STUDY: POST CODE, NOT REACTIVE COMPARISON: None. TECHNIQUE: Axial dynamic scanning technique with dynamic contrast enhancement through the extra-aircraft powerplant repairer nial carotid and vertebral arteries. Multiplanar reconstruction. 3-D MIPS and Volume-rendered imag es acquired at the workstation and saved to PACS. Images are reviewed in soft tissue, bone, lung w indows. All CT scanners at this facility use dose modulation, iterative reconstruction, and/or weight based d osing when appropriate to reduce radiation dose to as low as reasonably achievable (ALARA). [facility]: Dose Right [facility]: CareDose [facility]: Dose Right [facility]: Teradose 4D [facility]: [employer] CONTRAST TYPE AND DOSE: 140 mL Omnipaque 350- low osmolar. RENAL FUNCTION: BUN 21 creatinine 0.49. LIMITATIONS: None. FINDINGS: AORTIC ARCH: Normal three-vessel origin. Bilateral subclavian arteries are patent. No d issection. RIGHT CAROTIDS: Patent common, internal and external carotid arteries without suggestion of significa nt stenosis or irregular plaque. No dissection. RIGHT VERTEBRAL: Patent. No dissection. LEFT CAROTIDS: Patent common, internal and external carotid arteries without suggestion of significan t stenosis or irregular plaque. No dissection. LEFT VERTEBRAL: Patent. No dissection. OTHER: Left pleural effusion. Right apical pneumothorax. OTHER: 3-D reconstructions confirm findings. IMPRESSION: 1. NORMAL CTA OF THE EXTRA-CRANIAL CAROTID AND VERTEBRAL ARTERIES. 2. LEFT PLEURAL EFFUSION. RIGHT APICAL PNEUMOTHORAX. THESE FINDINGS HAVE BEEN FOLLOWED ON RECENT X- RAYS. COMMENT: Quality ID #[id number]: Measurements of distal internal carotid diameter were used as the denomina tor for stenosis measurement. TECHNICAL DOCUMENTATION: JOB ID: [id number] Quality ID # [id number]: Final reports with documentation of one or more dose reduction techniques (e.g., Au tomated exposure control, adjustment of the mA and/or kV according to patient size, use of iterative reconstruction technique) 2010 [employer]- All Rights Reserved Reading location - IP/workstation name: [email or web address]
--- NOTE | 2019-06-19 19:23 | PDOC CRITICAL CARE PROG REPORT ---
General Date:: 06/19/19 ICU Day:: 4 Ventilator Day:: 4 Resuscitation Status: Full Code Events in the past 12 to 24 Hours:: 06/15: Over the past 24 hours, patient has been status post arrest with tension pneumothorax most likely secondary to chest compressions. Chest tube was placed and tension pneumothorax was resolved. Patient was intubated at time of cardiac arrest and remains intubated on mechanical ventilation. He has a profound metabolic acidosis which is putting a greater demand on his respiratory condition. 06/16: No acute events over the past 24 hours. Patient has been weaned off of Versed and is unfortunately still not responsive. Plan is to continue off of any sedation overnight and if no significant change in mental status, will obtain a head CT in the morning. 06/17: Patient is a little bit more responsive today, although still not alert. Hopeful that he could still make a strong neurologic recovery. His ventilator has been weaned to a pressure support of 16 to 20 cm H2O. Chest tube has minimal output and no air leak on suction. I will look to remove the chest tube today. 06/18: Patient has been tolerating spontaneous mode ventilation. Chest tube removed today. Small, less than 10% apical pneumo on chest x-ray. CT of head obtained to help determine cause of poor mental status. Results pending. Review of systems relevant to events:: Please see complete review of systems below. Reason for ICU Addmission:: status post cardiac arrest - Medications: Medications reviewed and adjusted accordingly: Yes Physical Exam Vital Signs: Temp Pulse Resp BP Pulse Ox 101.5 F H 109 H 14 139/88 H 100 06/19/19 18:00 06/19/19 16:06 06/19/19 18:00 06/19/19 08:00 06/19/19 18:00 Intake & Output 06/18/19 06/19/19 06/20/19 06:59 06:59 06:59 Intake Total 350 1180 1480 Output Total 858 9331 675 Balance -508 -698 805 Weight 74.6 kg 75.6 kg 75.6 kg Weight/Height Weight 75.6 kg Height 5 ft 10 in General appearance: PRESENT: no acute distress Head exam: PRESENT: atraumatic, normocephalic Eye exam: PRESENT: PERRLA. ABSENT: periorbital swelling Ear exam: PRESENT: normal external ear exam. ABSENT: drainage Mouth exam: PRESENT: moist, neck supple Neck exam: PRESENT: full ROM Respiratory exam: PRESENT: decreased breath sounds, rhonchi Cardiovascular exam: PRESENT: RRR Pulses: PRESENT: normal carotid pulses, +1 pedal pulses bilateral Vascular exam: PRESENT: normal capillary refill GI/Abdominal exam: PRESENT: normal bowel sounds, soft Extremities exam: ABSENT: joint swelling, pedal edema Musculoskeletal exam: PRESENT: normal inspection, other - Left BKA Neurological exam: PRESENT: awake, CN II-XII grossly intact. ABSENT: alert Skin exam: PRESENT: normal color. ABSENT: abrasion, rash, skin tears Tubes/Lines: PRESENT: Endotracheal Tube, Central Line Laboratory/Radiographs Laboratory Results: 06/19/19 03:43 06/19/19 03:43 06/19/19 06/19/19 06/19/19 00:30 03:43 03:43 WBC 10.3 RBC 3.94 L Hgb 11.8 L Hct 32.3 L MCV 82 MCH 30.0 MCHC 36.5 H RDW 17.8 H Plt Count 166 Seg Neutrophils % 75.6 Carbonic Acid 0.85 L HCO3/H2CO3 Ratio 21:1 ABG pH 7.42 ABG pCO2 28.1 L ABG pO2 176.1 H ABG HCO3 17.9 L ABG O2 Saturation 99.3 H ABG Base Excess -5.2 FiO2 45% Sodium 135.7 L Potassium 3.8 Chloride 109 H Carbon Dioxide 22 Anion Gap 5 BUN 21 H Creatinine 0.49 L Est GFR ( Amer) > 60 Glucose 93 Calcium 8.3 L Phosphorus 2.6 Total Bilirubin 0.7 AST 51 Alkaline Phosphatase 38 Total Protein 5.1 L Albumin 2.7 L Urine Color Urine Appearance Urine pH Ur Specific [place] Urine Protein Urine Glucose (UA) Urine Ketones Urine Blood Urine Nitrite Ur Leukocyte Esterase Urine WBC (Auto) Urine RBC (Auto) 06/19/19 08:10 WBC RBC Hgb Hct MCV MCH MCHC RDW Plt Count Seg Neutrophils % Carbonic Acid HCO3/H2CO3 Ratio ABG pH ABG pCO2 ABG pO2 ABG HCO3 ABG O2 Saturation ABG Base Excess FiO2 Sodium Potassium Chloride Carbon Dioxide Anion Gap BUN Creatinine Est GFR ( Amer) Glucose Calcium Phosphorus Total Bilirubin AST Alkaline Phosphatase Total Protein Albumin Urine Color YELLOW Urine Appearance CLEAR Urine pH 7.0 Ur Specific [place] 1.019 Urine Protein NEGATIVE Urine Glucose (UA) NEGATIVE Urine Ketones NEGATIVE Urine Blood SMALL H Urine Nitrite NEGATIVE Ur Leukocyte Esterase NEGATIVE Urine WBC (Auto) 1 Urine RBC (Auto) 5 06/14/19 12:40 Blood Blood Culture - Final NO GROWTH IN 5 DAYS 06/14/19 12:38 Blood Blood Culture - Final NO GROWTH IN 5 DAYS 06/14/19 06/15/19 06/15/19 12:38 03:50 03:50 Creatine Kinase 222 H CK-MB (CK-2) 3.99 Troponin I < 0.012 0.036 06/15/19 06/15/19 06/15/19 12:35 12:35 17:50 Creatine Kinase 590 H 610 H CK-MB (CK-2) 14.20 H Troponin I 0.048 06/15/19 17:50 Creatine Kinase CK-MB (CK-2) 19.40 H Troponin I 0.025 Impressions: Head CT 06/14/19 15:37 IMPRESSION: NORMAL BRAIN CT WITHOUT CONTRAST. EVIDENCE OF ACUTE STROKE: NO. Abdomen/Pelvis CT 06/14/19 19:43 IMPRESSION: No acute intra-abdominal process is identified. The bowel is nonobstructed. Remote postsurgical change. Dependent atelectasis. Moderate hiatal hernia. Imaging is degraded by patient motion, with resultant artifact. The best possible images were obtained.. Chest X-Ray 06/19/19 11:45 IMPRESSION: Unchanged small right apical pneumothorax status post right chest tube removal. All labs, radiographs, diagnostic studies and EKGs were personally reviewed: Yes In addition, reports of radiographic and diagnostic studies were read: Yes Assessment and Plan - Diagnosis (1) Respiratory failure requiring intubation Is this a current diagnosis for this admission?: Yes Plan: Patient remains in respiratory failure. Tension pneumothorax has resolved. Left lung atelectasis continues to improve. Chest tube removed today. Patient tolerated spontaneous mode of ventilation for most of the day today. Continue to wean as tolerated. We will extubate when patient can show better airway protection. (2) Tension pneumothorax Is this a current diagnosis for this admission?: Yes Plan: Chest tube moved today. Tension pneumothorax has resolved. Small apical pneumothorax (less than 10%) is seen on post removal CXR. Plan Summary: ICU day: 4 Neuro: Patient slow to respond after cardiac arrest. He is now opening his eyes spontaneously but is not following commands. Sent for head CT scan today. Results pending. Pain management/sedation: Sedation currently being held to further evaluate neuro status. Pulmonary: Vent settings: Patient tolerating spontaneous ventilation today with pressure support of 16-20. Cardiovascular: Status post cardiac arrest. Patient was weaned off of all vasoactive medications following resolution of cardiac tamponade. Etiology of c ardiac arrest still remains unexplained. Indwelling catheters: Left IJ triple-lumen placed on 06/14. Right-sided chest tube placed on 06/14. DVT prophylaxis: Continue heparin 5000 units subcu every 8. Renal: Hyponatremia improving. Patient continues to have a metabolic acidosis. Normal saline change to LR. Continue strict I's and O's. Gastrointestinal: Protonix IV started for GI prophylaxis. : Maintain Szymanski catheter. ID: WBC remains stable at 10.3.. Solu-Medrol discontinued. Patient remains afebrile. Barriers to discharge from ICU: Patient continues to have acute respiratory failure, and poor mental status. Critical Time Critical Time (minutes): 65 Level of Care: ICU -: 1. The care of a critical patient is a dynamic process. This note is a lead generation representative synopsis but static in nature. The timeframe for treatments given in order is not necessarily the actual time these treatments may have been done. 2. This patient requires critical care secondary to ongoing requirements for therapy not offered or safe outside the critical care environment. Transfer to a lower level of care will result in altered life or limb morbidity and mortality. 3. Multidisciplinary rounds completed. 4. ABCDE bundle addressed.
[2019-06-19 21:31] LABS: ABSOLUTE BASOPHILS # (AUTO) 0.1 10^3/uL (0.0-0.2); ABSOLUTE EOSINOPHILS # (AUTO) 0.2 10^3/uL (0.0-0.6); ABSOLUTE LYMPHOCYTES (AUTO) 3.9 10^3/uL (0.5-4.7); ABSOLUTE MONOCYTES (AUTO) 1.1 10^3/uL (0.1-1.4); ABSOLUTE NEUT (AUTO) 6.9 10^3/uL (1.7-8.2); BASOPHILS % (AUTO) 0.6 % (0-2); EOSINOPHILS % (AUTO) 1.9 % (0-6); HEMATOCRIT 36.2 % (37.9-51.0); HEMOGLOBIN 12.9 g/dL (13.5-17.0); MEAN CORPUSCULAR HEMOGLOBIN 29.3 pg (27.0-33.4); MEAN CORPUSCULAR HGB CONC 35.6 g/dL (32.0-36.0); MEAN CORPUSCULAR VOLUME 82 fl (80-97); MONOCYTES % (AUTO) 9.2 % (3-13); PLATELET COUNT 207 10^3/uL (150-450); RED CELL DISTRIBUTION WIDTH 17.6 % (11.5-14.0); SEGMENTED NEUTROPHILS % (AUTO) 56.3 % (42-78); TOTAL CELLS COUNTED % (AUTO) 100 %; WHITE BLOOD COUNT 12.2 10^3/uL (4.0-10.5)
[2019-06-19] MEDS: LEVOFLOXACIN 750 MG/D5W RTU 750 MG/150 ML RTUPB IV SCH (21:43)
[2019-06-19 21:54] LABS: ALBUMIN 2.7 g/dL (3.5-5.0); ALKALINE PHOSPHATASE 42 U/L (38-126); ANION GAP 8 (5-19); ASPARTATE AMINO TRANSFERASE 56 U/L (17-59); BLOOD UREA NITROGEN 17 mg/dL (7-20); CARBON DIOXIDE 19 mmol/L (22-30); CHLORIDE 106 mmol/L (98-107); GLUCOSE 86 mg/dL (75-110); PHOSPHORUS 3.3 mg/dL (2.5-4.5); POTASSIUM 3.5 mmol/L (3.6-5.0); TOTAL PROTEIN 5.1 g/dL (6.3-8.2)
[2019-06-19 22:14] LABS: ARTERIAL BLOOD BASE EXCESS -1.3 mmol/L; ARTERIAL BLOOD H2CO3 0.68 mmol/L (1.05-1.35); ARTERIAL BLOOD HCO3 19.3 mmol/L (20-24); ARTERIAL BLOOD O2 SATURATION 97.5 % (94-98); ARTERIAL BLOOD PCO2 22.6 mmHg (35-45); ARTERIAL BLOOD PH 7.55 (7.35-7.45); ARTERIAL BLOOD PO2 83.7 mmHg (80-100)
[2019-06-19 22:15] LABS: ARTERIAL BLOOD FIO2 21%
[2019-06-19] MEDS ORDERED: PHOSPHORUS #1 250 MG TABLET NG ONE (23:00)
[2019-06-19] MEDS ORDERED: POTASSIUM CHLORIDE 20 MEQ PACKET NG ONE (23:00)
[2019-06-19] MEDS: ACETAMINOPHEN 325 MG TABLET PO PRN (23:11)
[2019-06-20] MEDS ORDERED: METOPROLOL TARTRATE PF/INJ 5 MG/5 ML SDV IV ONE ×2 (00:13→00:59)
[2019-06-20] MEDS ORDERED: NITROGLYCERIN 0.4 MG/TAB 25 TAB/BOTTLE ONE (00:13)
[2019-06-20] MEDS: IPRATROPIUM/ALBUTEROL 0.5-2.5 MG/3 ML AMPUL NEB SCH ×4 (00:16→23:56)
[2019-06-20] MEDS: RINGERS SOLUTION,LACTATED 1,000 ML IV PRN ×2 (00:44→14:45)
[2019-06-20] MEDS ORDERED: NITROGLYCERIN 0.4 MG/TAB 25 TAB/BOTTLE SL ONE (00:59)
[2019-06-20] MEDS: HEPARIN SOD (PORCINE) 5,000 UNIT/ML 1 ML VIAL SUBCUT SCH ×3 (05:19→21:20)
[2019-06-20] MEDS ORDERED: VANCOMYCIN HCL INJ 1000 MG VIAL IV ONE (06:27)
--- NOTE | 2019-06-20 07:20 | RADIOLOGY REPORT (SQ) ---
EXAM DESCRIPTION: X-ray single view chest. CLINICAL HISTORY: 53 years Male, RESPIRATORY FAILURE COMPARISON: 06/19/2019 at 11:46 AM and 6:03 AM TECHNIQUE: Single portable x-ray view of the chest performed on 06/20/2019 at 5:58 AM FINDINGS: There is a persistent right-sided pneumothorax which appears minimally increased when compared to the prior study. There is ongoing volume loss in the left lung base. The cardiac silhouette is stable and is mildly prominent. The mediastinal contours are normal. No acute osseous abnormality is identified. There is subcutaneous emphysema along the right lateral chest wall. Lines and tubes: The tip of the right subclavian [id number]-[id number] catheter tip is coiled on itself in the subclavian vein as noted previously. The endotracheal tube terminates at the jerry and approaches the right mainstem bronchus but does not enter the right mainstem bronchus. The feeding tube extends below the diaphragm. IMPRESSION: 1. Slight interval increase in size of the right-sided pneumothorax measuring approximately 20%. 2. Ongoing volume loss in the left lung base. 3. The tip of the endotracheal tube terminates at the jerry and approaches but does not enter the right mainstem bronchus. 4. Stable positioning of the right subclavian [id number]-[id number]-[id number] catheter and feeding tube. 5. Persistent subcutaneous emphysema. These findings were discussed with Leonela Matias RN on 06/20/2019 at 6:18 AM central time
[2019-06-20] MEDS ORDERED: LIDOCAINE 1% INJ-PF (10 MG/ML) 30 ML SDV ONE (07:21)
[2019-06-20] MEDS ORDERED: FENTANYL CITRATE INJ/PF 100 MCG/2 ML AMPUL ONE (07:35)
--- NOTE | 2019-06-20 09:26 | RADIOLOGY REPORT (SQ) ---
EXAM DESCRIPTION: CHEST SINGLE VIEW IMAGES COMPLETED DATE/TIME: 06/20/2019 9:14 am REASON FOR STUDY: s/p Right thoracostomy tube; eval placement/pneumo COMPARISON: 06/20/2019 EXAM PARAMETERS: NUMBER OF VIEWS: One view. TECHNIQUE: Single frontal radiographic view of the chest acquired. RADIATION DOSE: NA LIMITATIONS: None. FINDINGS: LUNGS AND PLEURA: Decreased but persistent right apical pneumothorax measuring 1.3 cm from the apex. There is been interval placement of a large bore right-sided chest tube. Unchanged left lower lobe opacities and small bilateral effusions. MEDIASTINUM AND HILAR STRUCTURES: Stable. HEART AND VASCULAR STRUCTURES: Stable. BONES: No acute findings. HARDWARE: Interval placement of a large bore right-sided chest tube. Unchanged right subclavian base d chest port with catheter tip looped over the subclavian vein. Endotracheal tube tip has been retra cted and now overlies midthoracic trachea. Enteric tube tip overlies distal stomach/ proximal duoden um. OTHER: Subcutaneous gas along the right chest wall. IMPRESSION: Interval placement of a right-sided chest tube with decreased size of the right-sided pn eumothorax. Retraction of the endotracheal tube with tip over midthoracic trachea. Persistent left basilar consolidation, possibly atelectasis or infection. TECHNICAL DOCUMENTATION: JOB ID: [id number] 2010 [employer]- All Rights Reserved Reading location - IP/workstation name: [email or web address]
[2019-06-20] MEDS: PANTOPRAZOLE SODIUM 40 MG VIAL IV SCH (10:02)
[2019-06-20] MEDS: VANCOMYCIN HCL 1,250 MG in DEXTROSE 5%-WATER 250 ML IV SCH ×2 (10:02→18:31)
--- NOTE | 2019-06-20 14:27 | EKG REPORT ---
SEVERITY:- ABNORMAL ECG - SINUS TACHYCARDIA PROBABLE LATERAL INFARCT, AGE INDETERMINATE ABNORMAL T, PROBABLE ISCHEMIA, ANTERIOR LEADS BORDERLINE PROLONGED QT INTERVAL : Confirmed by: Ana Turner MD 20-Jun-2019 14:26:57
[2019-06-20] MEDS ORDERED: VANCOMYCIN HCL INJ 1000 MG VIAL IV SCH (16:00)
[2019-06-20] MEDS ORDERED: FENTANYL CITRATE INJ/PF 100 MCG/2 ML AMPUL IV ONE (16:30)
[2019-06-20] MEDS ORDERED: LIDOCAINE 1% INJ-PF (10 MG/ML) 30 ML SDV INJ ONE (16:30)
--- NOTE | 2019-06-20 17:55 | PDOC CRITICAL CARE PROG REPORT ---
General Date:: 06/20/19 ICU Day:: 5 Ventilator Day:: 5 Resuscitation Status: Full Code Events in the past 12 to 24 Hours:: 06/15: Over the past 24 hours, patient has been status post arrest with tension pneumothorax most likely secondary to chest compressions. Chest tube was placed and tension pneumothorax was resolved. Patient was intubated at time of cardiac arrest and remains intubated on mechanical ventilation. He has a profound metabolic acidosis which is putting a greater demand on his respiratory condition. 06/16: No acute events over the past 24 hours. Patient has been weaned off of Versed and is unfortunately still not responsive. Plan is to continue off of any sedation overnight and if no significant change in mental status, will obtain a head CT in the morning. 06/17: Patient is a little bit more responsive today, although still not alert. Hopeful that he could still make a strong neurologic recovery. His ventilator has been weaned to a pressure support of 16 to 20 cm H2O. Chest tube has minimal output and no air leak on suction. I will look to remove the chest tube today. 06/18: Patient has been tolerating spontaneous mode ventilation. Chest tube removed today. Small, less than 10% apical pneumo on chest x-ray. CT of head obtained to help determine cause of poor mental status. Results pending. 06/19: Pneumothorax increased in size throughout the course of the night. Chest tube was replaced and pneumothorax is resolving. CT of the head was negative for any pathology. Patient still remains awake but not alert, and unable to follow commands. Patient developed ST depressions overnight. Troponins have trended down throughout the day. Cardiology to be consulted. Review of systems relevant to events:: Please see complete review of systems below. Reason for ICU Addmission:: status post cardiac arrest - Medications: Medications reviewed and adjusted accordingly: Yes Physical Exam Vital Signs: Temp Pulse Resp BP Pulse Ox 100.6 F H 99 17 119/67 100 06/20/19 16:00 06/20/19 16:00 06/20/19 16:00 06/20/19 16:00 06/20/19 16:00 Intake & Output 06/19/19 06/20/19 06/21/19 06:59 06:59 06:59 Intake Total 1330 2630 1250 Output Total 1871 3445 685 Balance -548 445 565 Weight 75.6 kg 74.5 kg 74.5 kg Weight/Height Weight 74.5 kg Height 5 ft 10 in General appearance: PRESENT: no acute distress Head exam: PRESENT: atraumatic, normocephalic Eye exam: PRESENT: PERRLA Ear exam: PRESENT: normal external ear exam. ABSENT: drainage Mouth exam: PRESENT: moist Neck exam: PRESENT: full ROM. ABSENT: JVD Respiratory exam: PRESENT: symmetrical, other - Mild inspiratory friction rub, mild bilateral rhonchi. Pulses: PRESENT: normal carotid pulses, +1 pedal pulses bilateral Vascular exam: PRESENT: normal capillary refill GI/Abdominal exam: PRESENT: normal bowel sounds, soft Extremities exam: PRESENT: full ROM, other - Left BKA. 2+ edema in upper extremities. Musculoskeletal exam: PRESENT: full ROM Neurological exam: PRESENT: altered Skin exam: PRESENT: normal color. ABSENT: abrasion, cyanosis, rash, skin tears Tubes/Lines: PRESENT: Endotracheal Tube, Chest Tube, Central Line Laboratory/Radiographs Laboratory Results: 06/19/19 21:25 06/19/19 21:25 06/19/19 06/19/19 06/19/19 21:25 21:25 21:25 WBC 12.2 H RBC 4.40 Hgb 12.9 L Hct 36.2 L MCV 82 MCH 29.3 MCHC 35.6 RDW 17.6 H Plt Count 207 Seg Neutrophils % 56.3 Carbonic Acid HCO3/H2CO3 Ratio ABG pH ABG pCO2 ABG pO2 ABG HCO3 ABG O2 Saturation ABG Base Excess FiO2 Sodium 132.6 L Potassium 3.5 L Chloride 106 Carbon Dioxide 19 L Anion Gap 8 BUN 17 Creatinine 0.44 L Est GFR ( Amer) > 60 Glucose 86 Lactic Acid 0.9 Calcium 8.0 L Phosphorus 3.3 Magnesium 2.0 Total Bilirubin 1.0 AST 56 Alkaline Phosphatase 42 Total Protein 5.1 L Albumin 2.7 L 06/19/19 22:02 WBC RBC Hgb Hct MCV MCH MCHC RDW Plt Count Seg Neutrophils % Carbonic Acid 0.68 L HCO3/H2CO3 Ratio 28:1 ABG pH 7.55 H ABG pCO2 22.6 L ABG pO2 83.7 ABG HCO3 19.3 L ABG O2 Saturation 97.5 ABG Base Excess -1.3 FiO2 21% Sodium Potassium Chloride Carbon Dioxide Anion Gap BUN Creatinine Est GFR ( Amer) Glucose Lactic Acid Calcium Phosphorus Magnesium Total Bilirubin AST Alkaline Phosphatase Total Protein Albumin 06/14/19 06/15/19 06/15/19 12:38 03:50 03:50 Creatine Kinase 222 H CK-MB (CK-2) 3.99 Troponin I < 0.012 0.036 06/15/19 06/15/19 06/15/19 12:35 12:35 17:50 Creatine Kinase 590 H 610 H CK-MB (CK-2) 14.20 H Troponin I 0.048 06/15/19 06/19/19 06/20/19 17:50 21:25 02:08 Creatine Kinase CK-MB (CK-2) 19.40 H Troponin I 0.025 0.470 0.402 06/20/19 08:53 Creatine Kinase CK-MB (CK-2) Troponin I 0.244 Impressions: Head CT 06/14/19 15:37 IMPRESSION: NORMAL BRAIN CT WITHOUT CONTRAST. EVIDENCE OF ACUTE STROKE: NO. Abdomen/Pelvis CT 06/14/19 19:43 IMPRESSION: No acute intra-abdominal process is identified. The bowel is nonobstructed. Remote postsurgical change. Dependent atelectasis. Moderate hiatal hernia. Imaging is degraded by patient motion, with resultant artifact. The best possible images were obtained.. Head CTA 06/19/19 17:38 IMPRESSION: NO OCCLUSION OF THE MAJOR INTRACRANIAL ARTERIAL VESSELS. THE MORE DISTAL BRANCHES OF THE LEFT MIDDLE CEREBRAL ARTERY ARE SOMEWHAT ATTENUATED COMPARED TO THE RIGHT. MAY BE ARTIFACT DUE TO CONTRAST BOLUS AND POSITIONING OF THE PATIENT'S HEAD BUT CANNOT EXCLUDE THE POSSIBILITY OF VASOSPASM. Neck CTA 06/19/19 17:43 IMPRESSION: 1. NORMAL CTA OF THE EXTRA-CRANIAL CAROTID AND VERTEBRAL ARTERIES. 2. LEFT PLEURAL EFFUSION. RIGHT APICAL PNEUMOTHORAX. THESE FINDINGS HAVE BEEN FOLLOWED ON RECENT X-RAYS. Chest X-Ray 06/20/19 06:00 IMPRESSION: 1. Slight interval increase in size of the right-sided pneumothorax measuring approximately 20%. 2. Ongoing volume loss in the left lung base. 3. The tip of the endotracheal tube terminates at the jerry and approaches but does not enter the right mainstem bronchus. 4. Stable positioning of the right subclavian [id number]-m-Iajn catheter and feeding tube. 5. Persistent subcutaneous emphysema. These findings were discussed with Leonela Matias RN on 06/20/2019 at 6:18 AM central time All labs, radiographs, diagnostic studies and EKGs were personally reviewed: Yes In addition, reports of radiographic and diagnostic studies were read: Yes Assessment and Plan - Diagnosis (1) Respiratory failure requiring intubation Is this a current diagnosis for this admission?: Yes Plan: Remains in respiratory failure following cardiac arrest. Patient tolerating spontaneous mode with a pressure support of 20. Chest tube removed yesterday. Patient developed a slow recurrence of pneumothorax. Chest tube replaced this morning. Still some volume leak noted in water chamber. Continue to wean vent as tolerated. We will extubate when patient can show better airway protection. (2) Tension pneumothorax Is this a current diagnosis for this admission?: Yes Plan: Tension pneumothorax has resolved. As above, chest tube was removed after 72 hours of no air leak. Unfortunately, his pneumothorax reoccurred, however, there was no apparent tension or cardiac compromise. A chest tube was replaced and the lung is reexpanding. There is a persistent air leak at this time. Plan Summary: ICU day: 5 Neuro: Patient slow to respond after cardiac arrest. He is now opening his eyes spontaneously but is not following commands. He responds only to deep discomfort. Head CT performed yesterday is negative for any acute event. Pain management/sedation: Sedation currently being held to further evaluate neuro status. Pulmonary: Vent settings: Patient tolerating spontaneous ventilation today with pressure support of 20. Cardiovascular: Status post cardiac arrest. Patient was weaned off of all vasoactive medications following resolution of cardiac tamponade. Etiology of cardiac arrest still remains unexplained. Last night he developed ST depressions. Troponins were initially mildly elevated but have quickly trended down. We will consult cardiology. Indwelling catheters: Left IJ TLC removed and peripheral lines placed. DVT prophylaxis: Continue heparin 5000 units subcu every 8. Renal: Hyponatremia improving. Patient continues to have a metabolic acidosis. Normal saline change to LR. Continue strict I's and O's. Gastrointestinal: Protonix IV for GI prophylaxis. : Maintain Szymanski catheter. ID: WBC mildly elevated to 12.2. Solu-Medrol discontinued. Patient remains afebrile. Barriers to discharge from ICU: Patient continues to have acute respiratory failure, and poor mental status. Critical Time Critical Time (minutes): 65 Level of Care: ICU -: 1. The care of a critical patient is a dynamic process. This note is a registration representative synopsis but static in nature. The timeframe for treatments given in order is not necessarily the actual time these treatments may have been done. 2. This patient requires critical care secondary to ongoing requirements for therapy not offered or safe outside the critical care environment. Transfer to a lower level of care will result in altered life or limb morbidity and mortality. 3. Multidisciplinary rounds completed. 4. ABCDE bundle addressed.
[2019-06-20] MEDS: LEVOFLOXACIN 750 MG/D5W RTU 750 MG/150 ML RTUPB IV SCH (21:20)
[2019-06-21] MEDS: VANCOMYCIN HCL 1,250 MG in DEXTROSE 5%-WATER 250 ML IV SCH ×2 (02:37→10:49)
--- NOTE | 2019-06-21 03:31 | Operative Report ---
Bedside Procedure - History of Present Illness History of Present Illness: Patient with recurrent enlarging right-sided pneumothorax that is now moderate in size visualized from the apex extending laterally toward the base of the lung. To avoid an emergent situation while awaiting interventional radiology, the decision was made to place a small bore thoracostomy tube to allow for lung re-expansion. Telephone consent was obtained from his mother, Danni Nichole. PROCEDURE: Thoracostomy tube insertion on right side PROCEDURALIST: BARRY Le Anesthesia/Meds: 20 mL 1% Lidocaine for local anesthesia, 50 mcg Fentanyl IV for analgesia Complications: none Chest x-ray pulled up at bedside confirms right-sided pneumothorax. A time out was performed. Patient placed in proper procedural position with right arm extended above the level of his head. Boufant cap, surgical mask with faceshield, sterile gown and gloves were donned for the procedure. Surgical field prepped and draped in usual sterile fashion. There are two previous skin wounds from chest tubes, one at approximately the 5th intercostal space and the other at approximately the 7th intercostal space. Therefore, site selection was the 6th intercostal space for which the dermis, subcutaneous tissue, periosteum, and pleural space were anesthetized with a total of 20 mL of 1% Lidocaine for which admixed Epinephrine was not available at the time in the pyxis machine. Care was taken to anesthetize directly onto the periosteum and then the needle was walked cephalad with the syringe under negative pressure perpendicular to the skin to slide over the top of the rib into the pleural space for anesthetization, avoiding the neurovascular bundle. Next, a 3 cm horizontal incision was made, followed by sharp dissection down to the external intercostal muscle with Metzenbaum scissors. Finer dissection was performed bluntly with a Erin clamp as well as my finger. Using my non-dominant hand as a hilt on a curved Erin clamp to avoid iatrogenic lung injury, the pleural space was then entered with the clamp in the 6th intercostal space followed by spreading of the clamp to dilate the parietal pleura with a large east of air. A 360 degree finger sweep was then performed demonstrating no adhesions. A 24 Fr thoracostomy tube was then inserted posteriorly and apically to 14 cm. I attempted using one suture in the form of a U-stitch to close the defect and secure the tube, however, when I was hand-tying the second loop on top of the tube, the suture broke. Therefore, I left a simple interrupted suture closing part of the defect and placed another suture closing the remaining skin while securing the thoracostomy tube. Petroleum gauze was then utilized to cover existing skin defects as well as new thoracostomy tube insertion site to prevent air leak. Gauze 4x4's were then applied below the tube to prevent kinking as well as above, followed by medipore tape closing all edges of the area to prevent air leak. The chest tube connection site was secured with clear tape and the atrium was placed on -20 cm continuous wall suction. A chest x-ray was ordered confirming successful placement of the right-sided thoracostomy tube with interval decrease in pneumothorax. In time, the tube should evacuate more air. I called the patient's mother to update her on the success of the procedure at her request. EBL 5 mL To note, I intended on placing a 16 Fr thoracostomy tube, but was unable to find a connection small enough to connect the atrium to the tube; therefore, a 24 Fr was utilized. Indication for Procedure: enlarging pneumothorax Date: 06/18/19 Provider: LAWRENCE VEGA - Chest Tube Right Midaxillary Time completed: 08:00 Consent obtained: Yes Chest tube pre-insertion: Sterile PPE donned, Chloraprep applied, Sterile drapes applied Size of Tamazight Tube (cm): 24 Anesthetic type: 1% Lidocaine - No Lidocaine with Epinephrine was available in the ICU pyxis mL's of anesthetic: 20 Chest tube post-insertion: Air east heard, Sutured, Position confirmed w/ CXR, Other - low continuous wall suction -20cm Chest tube drainage: minimal serosanguineous Number of attempts: 1 Complications: No Notes: 06/20/19 08:45
[2019-06-21 04:40] LABS: ABSOLUTE BASOPHILS # (AUTO) 0.1 10^3/uL (0.0-0.2); ABSOLUTE EOSINOPHILS # (AUTO) 1.8 10^3/uL (0.0-0.6); ABSOLUTE LYMPHOCYTES (AUTO) 2.7 10^3/uL (0.5-4.7); ABSOLUTE MONOCYTES (AUTO) 1.1 10^3/uL (0.1-1.4); ABSOLUTE NEUT (AUTO) 6.6 10^3/uL (1.7-8.2); BASOPHILS % (AUTO) 0.4 % (0-2); EOSINOPHILS % (AUTO) 14.6 % (0-6); HEMATOCRIT 36.8 % (37.9-51.0); HEMOGLOBIN 13.1 g/dL (13.5-17.0); LYMPHOCYTES % (AUTO) 21.9 % (13-45); MEAN CORPUSCULAR HEMOGLOBIN 29.3 pg (27.0-33.4); MEAN CORPUSCULAR HGB CONC 35.6 g/dL (32.0-36.0); MEAN CORPUSCULAR VOLUME 83 fl (80-97); MONOCYTES % (AUTO) 9.1 % (3-13); PLATELET COUNT 211 10^3/uL (150-450); RED BLOOD COUNT 4.46 10^6/uL (4.35-5.55); TOTAL CELLS COUNTED % (AUTO) 100 %; WHITE BLOOD COUNT 12.3 10^3/uL (4.0-10.5)
[2019-06-21 04:47] LABS: ANION GAP 9 (5-19); BLOOD UREA NITROGEN 12 mg/dL (7-20); CALCIUM 7.8 mg/dL (8.4-10.2); CARBON DIOXIDE 19 mmol/L (22-30); CHLORIDE 98 mmol/L (98-107); GLUCOSE 112 mg/dL (75-110); PHOSPHORUS 3.9 mg/dL (2.5-4.5); POTASSIUM 4.1 mmol/L (3.6-5.0)
[2019-06-21] MEDS: HEPARIN SOD (PORCINE) 5,000 UNIT/ML 1 ML VIAL SUBCUT SCH ×3 (05:36→21:27)
--- NOTE | 2019-06-21 06:27 | RADIOLOGY REPORT (SQ) ---
EXAM DESCRIPTION: XR CHEST 1 VIEW COMPLETED DATE/TME: 06/21/2019 06:00 CLINICAL HISTORY: 53 years, Male, follow up pneumothorax COMPARISON: 06/20/2019 chest NUMBER OF VIEWS: 1 TECHNIQUE: Portable chest LIMITATIONS: None. FINDINGS: There is been placement of a right-sided thoracostomy tube. Slight interval improvement in the right apical pneumothorax, now with approximately 1.9 cm pleural separation, on the prior there was 3.1 cm pleural separation. Endotracheal tube, enteric tube remain in place. There has been slight retraction of the endotracheal tube, the tip is now 3.2 cm above the jerry. [id number] catheter in grossly unchanged position. A small amount of subcutaneous emphysema on the right. Airspace opacity left lung base. Heart size is stable IMPRESSION: Placement of a right thoracostomy tube with slight improvement in the right pneumothorax. Slight retraction of the endotracheal tube. Other findings are grossly stable. copyright 2010 [employer]- All Rights Reserved
[2019-06-21] MEDS ORDERED: SODIUM CHLORIDE 3% 500 ML IV PRN (06:57)
[2019-06-21] MEDS: RINGERS SOLUTION,LACTATED 1,000 ML IV PRN ×2 (07:00→18:54)
[2019-06-21] MEDS ORDERED: SODIUM CHLORIDE 3% 500 ML IV ONE (07:00)
[2019-06-21] MEDS: IPRATROPIUM/ALBUTEROL 0.5-2.5 MG/3 ML AMPUL NEB SCH ×2 (08:32→16:13)
[2019-06-21] MEDS: SODIUM CHLORIDE 3% 250 ML IV ONE ×2 (08:38→08:46)
[2019-06-21 10:22] LABS: ARTERIAL BLOOD BASE EXCESS -1.1 mmol/L; ARTERIAL BLOOD FIO2 21%; ARTERIAL BLOOD H2CO3 0.67 mmol/L (1.05-1.35); ARTERIAL BLOOD HCO3 19.2 mmol/L (20-24); ARTERIAL BLOOD O2 SATURATION 95.3 % (94-98); ARTERIAL BLOOD PCO2 22.2 mmHg (35-45); ARTERIAL BLOOD PH 7.56 (7.35-7.45); ARTERIAL BLOOD PO2 64.1 mmHg (80-100); ARTERIAL BLOOD TOTAL CO2 19.9 mmol/L (23-27)
[2019-06-21 10:28] LABS: VANCOMYCIN,TROUGH 10.6 ug/mL (5.0-20.0)
--- NOTE | 2019-06-21 12:54 | PDOC CRITICAL CARE PROG REPORT ---
General Date:: 06/21/19 ICU Day:: 6 Ventilator Day:: 6 Resuscitation Status: Full Code Events in the past 12 to 24 Hours:: 06/15: Over the past 24 hours, patient has been status post arrest with tension pneumothorax most likely secondary to chest compressions. Chest tube was placed and tension pneumothorax was resolved. Patient was intubated at time of cardiac arrest and remains intubated on mechanical ventilation. He has a profound metabolic acidosis which is putting a greater demand on his respiratory condition. 06/16: No acute events over the past 24 hours. Patient has been weaned off of Versed and is unfortunately still not responsive. Plan is to continue off of any sedation overnight and if no significant change in mental status, will obtain a head CT in the morning. 06/17: Patient is a little bit more responsive today, although still not alert. Hopeful that he could still make a strong neurologic recovery. His ventilator has been weaned to a pressure support of 16 to 20 cm H2O. Chest tube has minimal output and no air leak on suction. I will look to remove the chest tube today. 06/18: Patient has been tolerating spontaneous mode ventilation. Chest tube removed today. Small, less than 10% apical pneumo on chest x-ray. CT of head obtained to help determine cause of poor mental status. Results pending. 06/19: Pneumothorax increased in size throughout the course of the night. Chest tube was replaced and pneumothorax is resolving. CT of the head was negative for any pathology. Patient still remains awake but not alert, and unable to follow commands. Patient developed ST depressions overnight. Troponins have trended down throughout the day. Cardiology to be consulted. 06/20: Chest tube remains in place. Small apical pneumo on CXR. Patient continues to be awake but not alert and not following commands. ST depressions have improved. Patient appears to be comfortable, however he is tachypneic regardle ss of level of vent support and continues to have a respiratory alkalosis. Review of systems relevant to events:: Please see complete review of systems below. Reason for ICU Addmission:: status post cardiac arrest - Medications: Medications reviewed and adjusted accordingly: Yes Physical Exam Vital Signs: Temp Pulse Resp BP Pulse Ox 100.8 F H 100 29 H 126/72 H 98 06/21/19 10:06/21/19 10:06/21/19 10:06/21/19 10:00 06/21/19 10:00 Intake & Output 06/20/19 06/21/19 06/22/19 06:59 06:59 06:59 Intake Total 2630 3538 Output Total 6190 1111 285 Balance 445 -143 -285 Weight 74.5 kg 75.9 kg Weight/Height Weight 75.9 kg Height 5 ft 10 in General appearance: PRESENT: no acute distress Head exam: PRESENT: atraumatic, normocephalic Eye exam: PRESENT: PERRLA Ear exam: PRESENT: normal external ear exam. ABSENT: drainage Neck exam: PRESENT: full ROM. ABSENT: JVD Respiratory exam: PRESENT: rhonchi. ABSENT: wheezes Cardiovascular exam: PRESENT: RRR Pulses: PRESENT: normal carotid pulses Vascular exam: PRESENT: normal capillary refill GI/Abdominal exam: PRESENT: hypoactive bowel sounds, soft Extremities exam: PRESENT: +2 edema, other - Upper extremity edema. Musculoskeletal exam: PRESENT: full ROM, other - Left BKA Neurological exam: PRESENT: altered, awake. ABSENT: alert Skin exam: PRESENT: normal color. ABSENT: abrasion, rash Tubes/Lines: PRESENT: Endotracheal Tube, Chest Tube, Central Line Laboratory/Radiographs Laboratory Results: 06/21/19 04:21 06/21/19 05:40 06/21/19 06/21/19 06/21/19 04:21 04:21 05:40 WBC 12.3 H RBC 4.46 Hgb 13.1 L Hct 36.8 L MCV 83 MCH 29.3 MCHC 35.6 RDW 17.0 H Plt Count 211 Seg Neutrophils % 54.0 Carbonic Acid HCO3/H2CO3 Ratio ABG pH ABG pCO2 ABG pO2 ABG HCO3 ABG O2 Saturation ABG Base Excess FiO2 Sodium 126.0 L 125.0 L Potassium 4.1 Chloride 98 Carbon Dioxide 19 L Anion Gap 9 BUN 12 Creatinine 0.38 L Est GFR ( Amer) > 60 Glucose 112 H Calcium 7.8 L Phosphorus 3.9 06/21/19 10:14 WBC RBC Hgb Hct MCV MCH MCHC RDW Plt Count Seg Neutrophils % Carbonic Acid 0.67 L HCO3/H2CO3 Ratio 28:1 ABG pH 7.56 H ABG pCO2 22.2 L ABG pO2 64.1 L ABG HCO3 19.2 L ABG O2 Saturation 95.3 ABG Base Excess -1.1 FiO2 21% Sodium Potassium Chloride Carbon Dioxide Anion Gap BUN Creatinine Est GFR ( Amer) Glucose Calcium Phosphorus 06/14/19 06/15/19 06/15/19 12:38 03:50 03:50 Creatine Kinase 222 H CK-MB (CK-2) 3.99 Troponin I < 0.012 0.036 06/15/19 06/15/19 06/15/19 12:35 12:35 17:50 Creatine Kinase 590 H 610 H CK-MB (CK-2) 14.20 H Troponin I 0.048 06/15/19 06/19/19 06/20/19 17:50 21:25 02:08 Creatine Kinase CK-MB (CK-2) 19.40 H Troponin I 0.025 0.470 0.402 06/20/19 08:53 Creatine Kinase CK-MB (CK-2) Troponin I 0.244 Impressions: Head CT 06/14/19 15:37 IMPRESSION: NORMAL BRAIN CT WITHOUT CONTRAST. EVIDENCE OF ACUTE STROKE: NO. Abdomen/Pelvis CT 06/14/19 19:43 IMPRESSION: No acute intra-abdominal process is identified. The bowel is nonobstructed. Remote postsurgical change. Dependent atelectasis. Moderate hiatal hernia. Imaging is degraded by patient motion, with resultant artifact. The best possible images were obtained.. Head CTA 06/19/19 17:38 IMPRESSION: NO OCCLUSION OF THE MAJOR INTRACRANIAL ARTERIAL VESSELS. THE MORE DISTAL BRANCHES OF THE LEFT MIDDLE CEREBRAL ARTERY ARE SOMEWHAT ATTENUATED COMPARED TO THE RIGHT. MAY BE ARTIFACT DUE TO CONTRAST BOLUS AND POSITIONING OF THE PATIENT'S HEAD BUT CANNOT EXCLUDE THE POSSIBILITY OF VASOSPASM. Neck CTA 06/19/19 17:43 IMPRESSION: 1. NORMAL CTA OF THE EXTRA-CRANIAL CAROTID AND VERTEBRAL ARTERIES. 2. LEFT PLEURAL EFFUSION. RIGHT APICAL PNEUMOTHORAX. THESE FINDINGS HAVE BEEN FOLLOWED ON RECENT X-RAYS. Chest X-Ray 06/21/19 06:00 IMPRESSION: Placement of a right thoracostomy tube with slight improvement in the right pneumothorax. Slight retraction of the endotracheal tube. Other findings are grossly stable. copyright 2010 [employer]- All Rights Reserved All labs, radiographs, diagnostic studies and EKGs were personally reviewed: Yes In addition, reports of radiographic and diagnostic studies were read: Yes Assessment and Plan - Diagnosis (1) Respiratory failure requiring intubation Is this a current diagnosis for this admission?: Yes Plan: Remains in respiratory failure following cardiac arrest. Patient tolerating spontaneous mode with a pressure support of 20. Patient has a persistent respiratory alkalosis despite appearing comfortable and on supportive vent settings.. (2) Tension pneumothorax Is this a current diagnosis for this admission?: Yes Plan: Mild apical pneumothorax. Chest tube in place and to wall suction Plan Summary: ICU day: 6 Neuro: Patient slow to respond after cardiac arrest. He is now opening his eyes spontaneously but is not following commands. He responds only to deep discomfort. Head CT performed yesterday is negative for any acute event. Pain management/sedation: Sedation currently being held to further evaluate neuro status. Pulmonary: Vent settings: Patient tolerating spontaneous ventilation today with pressure support of 20. He is overbreathing the ventilator without any signs of discomfort or agitation. Cardiovascular: Status post cardiac arrest. Patient was weaned off of all vasoactive medications following resolution of cardiac tamponade. ST depressions have subsided and troponin levels have trended down. Indwelling catheters: Left IJ TLC removed and peripheral lines placed. DVT prophylaxis: Continue heparin 5000 units subcu every 8. Renal: Hyponatremia improving with hypertonic saline. Repeat renal panel this evening. Continue strict I's and O's. Gastrointestinal: Protonix IV for GI prophylaxis. : Maintain Szymanski catheter. ID: MRSA in the sputum. Sensitive to vancomycin. Patient remains afebrile. Continue vancomycin. Barriers to discharge from ICU: Patient continues to have acute respiratory failure, and poor mental status. Critical Time Critical Time (minutes): 65 Level of Care: ICU -: 1. The care of a critical patient is a dynamic process. This note is a registered representative synopsis but static in nature. The timeframe for treatments given in order is not necessarily the actual time these treatments may have been done. 2. This patient requires critical care secondary to ongoing requirements for therapy not offered or safe outside the critical care environment. Transfer to a lower level of care will result in altered life or limb morbidity and mortality. 3. Multidisciplinary rounds completed. 4. ABCDE bundle addressed.
[2019-06-21] MEDS ORDERED: VANCOMYCIN HCL 1,250 MG in DEXTROSE 5%-WATER 250 ML IV SCH (18:00)
--- NOTE | 2019-06-21 22:50 | RADIOLOGY REPORT (SQ) ---
EXAM DESCRIPTION: XR CHEST 1 VIEW COMPLETED DATE/TME: 06/21/2019 21:55 CLINICAL HISTORY: 53 years Male resp distress; r/o new infiltrate or pneumothorax COMPARISON: 06/21/2019, 06/20/2019 FINDINGS: Cardiac size is unchanged. Endotracheal tube is in place. Nasogastric tube is poorly seen but appears to extend into the gastric body. Increased density in the left base suggesting layered fluid with underlying atelectasis or infiltrate. The Qzzfyw-f-[id number] catheter is looped back on itself in the subclavian vein. This should be replaced but appears unchanged from earlier examinations. There is a persistent pneumothorax with deep sulcus sign. Thoracostomy tube remains in position. IMPRESSION: Persistent right apical and lateral pneumothorax despite presence of a thoracostomy tube Atelectasis or infiltrate in the left base of the later pleural effusion Subclavian Lpuztn-c-[id number] catheter loops back on itself in the subclavian artery. Ideally, this should be repositioned. This appears to been in this position since at least June 13.
[2019-06-22] MEDS: IPRATROPIUM/ALBUTEROL 0.5-2.5 MG/3 ML AMPUL NEB SCH ×3 (00:23→16:00)
[2019-06-22] MEDS ORDERED: POLYMYXIN B SULFATE/TMP OPH SOLN 10 ML ONE (00:36)
[2019-06-22] MEDS ORDERED: LINEZOLID 600 MG/300 ML RTUPB IV ONE (00:36)
[2019-06-22] MEDS: POLYMYXIN B SULFATE/TMP OPH SOLN 10 ML OU SCH ×5 (00:46→23:25)
[2019-06-22] MEDS: LINEZOLID 600 MG/300 ML RTUPB IV SCH ×3 (00:46→21:05)
[2019-06-22] MEDS ORDERED: NORMAL SALINE 1000 ML 500 ML IV ONE (00:52)
[2019-06-22] MEDS ORDERED: SODIUM CHLORIDE 3% 500 ML IV PRN (00:52)
[2019-06-22] MEDS ORDERED: HYDROMORPHONE HCL INJ/PF 2 MG/ML AMPULE IV ONE (01:00)
[2019-06-22] MEDS: ACETAMINOPHEN 325 MG TABLET PO PRN ×2 (01:15→14:36)
[2019-06-22] MEDS ORDERED: NORMAL SALINE 1000 ML 1,000 ML IV ONE ×2 (01:30→02:21)
[2019-06-22 04:34] LABS: ARTERIAL BLOOD BASE EXCESS -6.1 mmol/L; ARTERIAL BLOOD H2CO3 0.67 mmol/L (1.05-1.35); ARTERIAL BLOOD HCO3 15.6 mmol/L (20-24); ARTERIAL BLOOD O2 SATURATION 94.9 % (94-98); ARTERIAL BLOOD PCO2 22.2 mmHg (35-45); ARTERIAL BLOOD PH 7.46 (7.35-7.45); ARTERIAL BLOOD PO2 67.7 mmHg (80-100); ARTERIAL BLOOD TOTAL CO2 16.3 mmol/L (23-27)
[2019-06-22 04:35] LABS: ABSOLUTE EOSINOPHILS # (AUTO) 1.7 10^3/uL (0.0-0.6); ABSOLUTE LYMPHOCYTES (AUTO) 2.6 10^3/uL (0.5-4.7); ABSOLUTE MONOCYTES (AUTO) 1.5 10^3/uL (0.1-1.4); ABSOLUTE NEUT (AUTO) 7.4 10^3/uL (1.7-8.2); BASOPHILS % (AUTO) 0.1 % (0-2); EOSINOPHILS % (AUTO) 13.1 % (0-6); HEMATOCRIT 34.1 % (37.9-51.0); HEMOGLOBIN 12.4 g/dL (13.5-17.0); LYMPHOCYTES % (AUTO) 19.8 % (13-45); MEAN CORPUSCULAR HGB CONC 36.3 g/dL (32.0-36.0); MEAN CORPUSCULAR VOLUME 83 fl (80-97); MONOCYTES % (AUTO) 11.4 % (3-13); PLATELET COUNT 247 10^3/uL (150-450); RED BLOOD COUNT 4.13 10^6/uL (4.35-5.55); RED CELL DISTRIBUTION WIDTH 16.7 % (11.5-14.0); SEGMENTED NEUTROPHILS % (AUTO) 55.6 % (42-78); TOTAL CELLS COUNTED % (AUTO) 100 %; WHITE BLOOD COUNT 13.2 10^3/uL (4.0-10.5)
[2019-06-22 04:37] LABS: ARTERIAL BLOOD FIO2 21%
[2019-06-22] MEDS ORDERED: SODIUM CHLORIDE 3% 500 ML IV ONE (04:52)
[2019-06-22 05:05] LABS: ANION GAP 7 (5-19); BLOOD UREA NITROGEN 9 mg/dL (7-20); CALCIUM 7.3 mg/dL (8.4-10.2); CARBON DIOXIDE 17 mmol/L (22-30); CHLORIDE 100 mmol/L (98-107); GLUCOSE 95 mg/dL (75-110); PHOSPHORUS 3.8 mg/dL (2.5-4.5); POTASSIUM 3.9 mmol/L (3.6-5.0)
[2019-06-22] MEDS ORDERED: NORMAL SALINE 1000 ML 1,000 ML IV PRN ×3 (05:30→21:37)
[2019-06-22] MEDS ORDERED: SODIUM CHLORIDE 3% 250 ML IV PRN (05:31)
--- NOTE | 2019-06-22 05:41 | RADIOLOGY REPORT (SQ) ---
CLINICAL HISTORY: follow up size of pneumothorax COMPARISON: 07/09/2019. TECHNIQUE: XR CHEST 1 VIEW 06/22/2019 5:00 AM CDT FINDINGS: The heart is mildly enlarged. Lungs are clear without consolidation, atelectasis, mass or edema. There is a left basilar pleural effusion. There is a small left pleural effusion. Right apical pneumothorax is stable. There are no acute osseous findings. Endotracheal tube, nasogastric tube and right chest port are unchanged. Right chest tube is unchanged. IMPRESSION: No change.
[2019-06-22] MEDS: CALCIUM GLUC IN NACL, ISO-OSM 1 GM/50 ML RTUPB IV SCH ×2 (06:15→07:00)
[2019-06-22 06:24] LABS: APPEARANCE,URINE SLIGHTLY-CLOUDY; BILIRUBIN,URINE NEGATIVE (NEGATIVE); COLOR,URINE YELLOW; GLUCOSE, URINE NEGATIVE (NEGATIVE); KETONES,URINE NEGATIVE (NEGATIVE); LEUKOCYTE ESTERASE,URINE NEGATIVE (NEGATIVE); NITRITE,URINE NEGATIVE (NEGATIVE); PROTEIN,URINE NEGATIVE (NEGATIVE); URINE SPECIFIC GRAVITY 1.019; UROBILINOGEN,URINE NEGATIVE mg/dL (<2.0)
[2019-06-22] MEDS: HEPARIN SOD (PORCINE) 5,000 UNIT/ML 1 ML VIAL SUBCUT SCH ×3 (06:33→21:05)
[2019-06-22] MEDS: MAGNESIUM SULFATE/D5W 1 GM/100 ML RTUPB IV SCH ×3 (06:34→08:30)
[2019-06-22] MEDS: NORMAL SALINE 1000 ML 1,000 ML IV PRN ×3 (06:34→20:53)
[2019-06-22] MEDS: SODIUM CHLORIDE 3% 500 ML IV PRN ×2 (08:30→20:52)
[2019-06-22 08:52] LABS: ARTERIAL BLOOD BASE EXCESS -4.2 mmol/L; ARTERIAL BLOOD FIO2 21%; ARTERIAL BLOOD H2CO3 0.66 mmol/L (1.05-1.35); ARTERIAL BLOOD HCO3 16.9 mmol/L (20-24); ARTERIAL BLOOD O2 SATURATION 95.5 % (94-98); ARTERIAL BLOOD PO2 68.4 mmHg (80-100); ARTERIAL BLOOD TOTAL CO2 17.6 mmol/L (23-27)
[2019-06-22] MEDS: AMINO AC/PROTEIN HYDR/WHEY PRO 11 GM/45 ML PKT NG SCH ×2 (10:05→18:25)
[2019-06-22] MEDS ORDERED: MIDAZOLAM 2 MG/2 ML INJ ONE (11:30)
[2019-06-22 11:45] LABS: ANION GAP 8 (5-19); BLOOD UREA NITROGEN 9 mg/dL (7-20); CALCIUM 7.4 mg/dL (8.4-10.2); CARBON DIOXIDE 17 mmol/L (22-30); CHLORIDE 100 mmol/L (98-107); GLUCOSE 137 mg/dL (75-110); POTASSIUM 4.2 mmol/L (3.6-5.0)
[2019-06-22] MEDS: MIDAZOLAM HCL 50 MG/100 ML RTUINJ IV PRN ×2 (11:46→20:50)
[2019-06-22] MEDS ORDERED: MIDAZOLAM 2 MG/2 ML INJ IV ONE (12:00)
--- NOTE | 2019-06-22 13:16 | PDOC CRITICAL CARE PROG REPORT ---
General Date:: 06/22/19 ICU Day:: 7 Ventilator Day:: 7 Resuscitation Status: Full Code Events in the past 12 to 24 Hours:: 06/15: Over the past 24 hours, patient has been status post arrest with tension pneumothorax most likely secondary to chest compressions. Chest tube was placed and tension pneumothorax was resolved. Patient was intubated at time of cardiac arrest and remains intubated on mechanical ventilation. He has a profound metabolic acidosis which is putting a greater demand on his respiratory condition. 06/16: No acute events over the past 24 hours. Patient has been weaned off of Versed and is unfortunately still not responsive. Plan is to continue off of any sedation overnight and if no significant change in mental status, will obtain a head CT in the morning. 06/17: Patient is a little bit more responsive today, although still not alert. Hopeful that he could still make a strong neurologic recovery. His ventilator has been weaned to a pressure support of 16 to 20 cm H2O. Chest tube has minimal output and no air leak on suction. I will look to remove the chest tube today. 06/18: Patient has been tolerating spontaneous mode ventilation. Chest tube removed today. Small, less than 10% apical pneumo on chest x-ray. CT of head obtained to help determine cause of poor mental status. Results pending. 06/19: Pneumothorax increased in size throughout the course of the night. Chest tube was replaced and pneumothorax is resolving. CT of the head was negative for any pathology. Patient still remains awake but not alert, and unable to follow commands. Patient developed ST depressions overnight. Troponins have trended down throughout the day. Cardiology to be consulted. 06/20: Chest tube remains in place. Small apical pneumo on CXR. Patient continues to be awake but not alert and not following commands. ST depressions have improved. Patient appears to be comfortable, however he is tachypneic regardle ss of level of vent support and continues to have a respiratory alkalosis. 3: No change in mental status. Patient continues to have a combined metabolic acidosis with a respiratory alkalosis. MRSA in the sputum. Review of systems relevant to events:: Please see complete review of systems below. Reason for ICU Addmission:: status post cardiac arrest - Medications: Medications reviewed and adjusted accordingly: Yes Sedation:: Patient has been off of all sedatives for several days without awakening. He seems extremely uncomfortable today and we will start a low-dose Versed drip. Physical Exam Vital Signs: Temp Pulse Resp BP Pulse Ox 101.1 F H 103 H 22 H 150/83 H 97 06/22/19 10:00 06/22/19 10:00 06/22/19 10:00 06/22/19 10:00 06/22/19 10:00 Intake & Output 06/21/19 06/22/19 06/23/19 06:59 06:59 06:59 Intake Total 1960 6230 365 Output Total 2103 2910 700 Balance -143 3320 -335 Weight 75.9 kg 75.3 kg Weight/Height Weight 75.3 kg Height 5 ft 10 in General appearance: PRESENT: other - Although not responsive, patient appears to be in mild to moderate distress. Head exam: PRESENT: atraumatic Eye exam: PRESENT: conjunctival injection, conjunctiva pink, PERRLA Ear exam: PRESENT: normal external ear exam. ABSENT: drainage Mouth exam: PRESENT: moist Neck exam: PRESENT: full ROM. ABSENT: JVD Respiratory exam: PRESENT: other - Patient had rhonchorous breath sounds with p oor air movement. Aeration improved after Versed administration. Cardiovascular exam: PRESENT: other - Mild tachycardia. Normal rhythm. Pulses: PRESENT: normal carotid pulses, normal radial pulses GI/Abdominal exam: PRESENT: diminished bowel sounds, hyperactive bowel sounds, soft Extremities exam: PRESENT: +1 edema Musculoskeletal exam: PRESENT: normal inspection, other - Left BKA Neurological exam: PRESENT: altered Psychiatric exam: PRESENT: agitated Tubes/Lines: PRESENT: Endotracheal Tube, Chest Tube, Central Line, Arterial Catheter Laboratory/Radiographs Laboratory Results: 06/22/19 04:19 06/22/19 04:19 06/21/19 06/22/19 06/22/19 23:55 04:19 04:19 WBC RBC Hgb Hct MCV MCH MCHC RDW Plt Count Seg Neutrophils % Carbonic Acid 0.67 L HCO3/H2CO3 Ratio 23:1 ABG pH 7.46 H ABG pCO2 22.2 L ABG pO2 67.7 L ABG HCO3 15.6 L ABG O2 Saturation 94.9 ABG Base Excess -6.1 FiO2 21% Sodium 124.4 L 123.5 L Potassium 3.9 Chloride 100 Carbon Dioxide 17 L Anion Gap 7 BUN 9 Creatinine 0.38 L Est GFR ( Amer) > 60 Glucose 95 Lactic Acid Calcium 7.3 L Phosphorus 3.8 Magnesium 1.7 Urine Color Urine Appearance Urine pH Ur Specific [place] Urine Protein Urine Glucose (UA) Urine Ketones Urine Blood Urine Nitrite Ur Leukocyte Esterase Urine WBC (Auto) Urine RBC (Auto) 06/22/19 06/22/19 06/22/19 04:19 04:19 05:50 WBC 13.2 H RBC 4.13 L Hgb 12.4 L Hct 34.1 L MCV 83 MCH 30.0 MCHC 36.3 H RDW 16.7 H Plt Count 247 Seg Neutrophils % 55.6 Carbonic Acid HCO3/H2CO3 Ratio ABG pH ABG pCO2 ABG pO2 ABG HCO3 ABG O2 Saturation ABG Base Excess FiO2 Sodium Potassium Chloride Carbon Dioxide Anion Gap BUN Creatinine Est GFR ( Amer) Glucose Lactic Acid 0.7 Calcium Phosphorus Magnesium Urine Color YELLOW Urine Appearance SLIGHTLY-CLOUDY Urine pH 5.0 Ur Specific [place] 1.019 Urine Protein NEGATIVE Urine Glucose (UA) NEGATIVE Urine Ketones NEGATIVE Urine Blood SMALL H Urine Nitrite NEGATIVE Ur Leukocyte Esterase NEGATIVE Urine WBC (Auto) 3 Urine RBC (Auto) 5 06/22/19 08:28 WBC RBC Hgb Hct MCV MCH MCHC RDW Plt Count Seg Neutrophils % Carbonic Acid 0.66 L HCO3/H2CO3 Ratio 25:1 ABG pH 7.50 H ABG pCO2 22.0 L ABG pO2 68.4 L ABG HCO3 16.9 L ABG O2 Saturation 95.5 ABG Base Excess -4.2 FiO2 21% Sodium Potassium Chloride Carbon Dioxide Anion Gap BUN Creatinine Est GFR ( Amer) Glucose Lactic Acid Calcium Phosphorus Magnesium Urine Color Urine Appearance Urine pH Ur Specific [place] Urine Protein Urine Glucose (UA) Urine Ketones Urine Blood Urine Nitrite Ur Leukocyte Esterase Urine WBC (Auto) Urine RBC (Auto) 06/19/19 08:10 Tracheal Aspirate Gram Stain - Final 06/19/19 08:10 Tracheal Aspirate Sputum Culture - Final Mrsa (Meth Resis Staph Aureus) Reduced Normal Rupali 06/14/19 06/15/19 06/15/19 12:38 03:50 03:50 Creatine Kinase 222 H CK-MB (CK-2) 3.99 Troponin I < 0.012 0.036 06/15/19 06/15/19 06/15/19 12:35 12:35 17:50 Creatine Kinase 590 H 610 H CK-MB (CK-2) 14.20 H Troponin I 0.048 06/15/19 06/19/19 06/20/19 17:50 21:25 02:08 Creatine Kinase CK-MB (CK-2) 19.40 H Troponin I 0.025 0.470 0.402 06/20/19 06/22/19 08:53 06:48 Creatine Kinase CK-MB (CK-2) Troponin I 0.244 0.077 Impressions: Head CT 06/14/19 15:37 IMPRESSION: NORMAL BRAIN CT WITHOUT CONTRAST. EVIDENCE OF ACUTE STROKE: NO. Abdomen/Pelvis CT 06/14/19 19:43 IMPRESSION: No acute intra-abdominal process is identified. The bowel is nonobstructed. Remote postsurgical change. Dependent atelectasis. Moderate hiatal hernia. Imaging is degraded by patient motion, with resultant artifact. The best possible images were obtained.. Head CTA 06/19/19 17:38 IMPRESSION: NO OCCLUSION OF THE MAJOR INTRACRANIAL ARTERIAL VESSELS. THE MORE DISTAL BRANCHES OF THE LEFT MIDDLE CEREBRAL ARTERY ARE SOMEWHAT ATTENUATED CO MPARED TO THE RIGHT. MAY BE ARTIFACT DUE TO CONTRAST BOLUS AND POSITIONING OF THE PATIENT'S HEAD BUT CANNOT EXCLUDE THE POSSIBILITY OF VASOSPASM. Neck CTA 06/19/19 17:43 IMPRESSION: 1. NORMAL CTA OF THE EXTRA-CRANIAL CAROTID AND VERTEBRAL ARTERIES. 2. LEFT PLEURAL EFFUSION. RIGHT APICAL PNEUMOTHORAX. THESE FINDINGS HAVE BEEN FOLLOWED ON RECENT X-RAYS. Chest X-Ray 06/22/19 05:00 IMPRESSION: No change. All labs, radiographs, diagnostic studies and EKGs were personally reviewed: Yes In addition, reports of radiographic and diagnostic studies were read: Yes Assessment and Plan - Diagnosis (1) Respiratory failure requiring intubation Is this a current diagnosis for this admission?: Yes Plan: Remains in respiratory failure following cardiac arrest. Placed on pressure control to maintain low airway pressures to help facilitate closure of bronchiole leading to persistent pneumothorax. (2) Tension pneumothorax Is this a current diagnosis for this admission?: Yes Plan: Mild apical pneumothorax. Continue chest tube on wall suction. Plan Summary: ICU day: 7 Neuro: Patient slow to respond after cardiac arrest. He is now opening his eyes spontaneously but is not following commands. He responds only to deep discomfort. Head CT performed is negative for any acute event. Patient is experiencing significant discomfort which is interfering with his respiratory status on vent support. Plan: Restart Versed at minimal dose to maintain comfort level and vent synchrony. Pulmonary: Vent settings: Pressure control ventilation: Inspiratory pressure reduced from 22-16. Respiratory rate remains at 22. Patient gets significantly tachypneic when uncomfortable. Small apical pneumothorax unchanged on CXR. MRSA detected on sputum culture on 06/19/2019. Plan: If patient unable to tolerate pressure control ventilation, we will switch him back to volume control settings while tolerating smaller tidal volumes and PEEP to facilitate lower pressures. Titrate Versed to establish vent synchrony. Continue bronchodilators, Continue with Linezolid that was started overnight. Cardiovascular: Status post cardiac arrest. Patient was weaned off of all vasoactive medications following resolution of cardiac tamponade. ST depressions have subsided and troponin levels have trended down. Left IJ TLC removed and peripheral lines placed. Plan: DVT prophylaxis: Continue heparin 5000 units subcu every 8. Continue labetalol 10 mg IV every 4 as needed. Continue hydralazine 10 mg IV every 6 as needed. Renal: Patient continues to be hyponatremic. This may be contributing to his mental status changes, however, there has been no significant mental status changes since from when his sodium was normal 5 days ago. Plan: Continue 3% hypertonic saline. Follow-up renal panel this afternoon. Continue strict I's and O's. Gastrointestinal: Abdomen appears benign. Plan: Protonix IV for GI prophylaxis. Continue tube feeds at 50 cc/h. : Maintain Szymanski catheter. No signs of infection on urinalysis. ID: MRSA in the sputum. Linezolid started overnight. Patient is with mild fever. Eyes appear injected, possible conjunctivitis. Plan: Continue Linezolid. Also sensitive to vancomycin if no improvement seen. Follow-up WBC in a.m. Follow daily CXR. Continue polymyxin B OPTH for conjunctivitis. Barriers to discharge from ICU: Patient continues to have acute respiratory failure, and poor mental status. Critical Time Critical Time (minutes): 65 Level of Care: ICU -: 1. The care of a critical patient is a dynamic process. This note is a senior human resources representative synopsis but static in nature. The timeframe for treatments given in order is not necessarily the actual time these treatments may have been done. 2. This patient requires critical care secondary to ongoing requirements for therapy not offered or safe outside the critical care environment. Transfer to a lower level of care will result in altered life or limb morbidity and mor tality. 3. Multidisciplinary rounds completed. 4. ABCDE bundle addressed.
[2019-06-22] MEDS ORDERED: AZTREONAM INJ 1 GM VIAL IV PRN (21:15)
[2019-06-22] MEDS ORDERED: DEXMEDETOMIDINE IN 0.9 % NACL 400 MCG/100 ML RTUPB IV PRN (21:34)
[2019-06-22] MEDS ORDERED: AZTREONAM INJ 1 GM VIAL ONE ×2 (23:32→23:39)
[2019-06-22] MEDS: AZTREONAM 2 GM in DEXTROSE 5%-WATER 100 ML IV SCH (23:45)
[2019-06-23] MEDS: IPRATROPIUM/ALBUTEROL 0.5-2.5 MG/3 ML AMPUL NEB SCH ×4 (00:18→23:46)
[2019-06-23 04:13] LABS: ABSOLUTE EOSINOPHILS # (AUTO) 1.2 10^3/uL (0.0-0.6); ABSOLUTE LYMPHOCYTES (AUTO) 1.5 10^3/uL (0.5-4.7); ABSOLUTE MONOCYTES (AUTO) 0.8 10^3/uL (0.1-1.4); ARTERIAL BLOOD BASE EXCESS -4.7 mmol/L; ARTERIAL BLOOD H2CO3 0.76 mmol/L (1.05-1.35); ARTERIAL BLOOD HCO3 17.6 mmol/L (20-24); ARTERIAL BLOOD O2 SATURATION 96.5 % (94-98); ARTERIAL BLOOD PCO2 25.4 mmHg (35-45); ARTERIAL BLOOD PH 7.46 (7.35-7.45); ARTERIAL BLOOD PO2 79.5 mmHg (80-100); ARTERIAL BLOOD TOTAL CO2 18.4 mmol/L (23-27); BASOPHILS % (AUTO) 0.2 % (0-2); HEMATOCRIT 31.5 % (37.9-51.0); HEMOGLOBIN 11.5 g/dL (13.5-17.0); LYMPHOCYTES % (AUTO) 17.6 % (13-45); MEAN CORPUSCULAR HEMOGLOBIN 30.3 pg (27.0-33.4); MEAN CORPUSCULAR HGB CONC 36.4 g/dL (32.0-36.0); MEAN CORPUSCULAR VOLUME 83 fl (80-97); MONOCYTES % (AUTO) 9.5 % (3-13); PLATELET COUNT 262 10^3/uL (150-450); RED BLOOD COUNT 3.79 10^6/uL (4.35-5.55); RED CELL DISTRIBUTION WIDTH 16.7 % (11.5-14.0); SEGMENTED NEUTROPHILS % (AUTO) 58.7 % (42-78); TOTAL CELLS COUNTED % (AUTO) 100 %; WHITE BLOOD COUNT 8.6 10^3/uL (4.0-10.5)
[2019-06-23 04:15] LABS: ARTERIAL BLOOD FIO2 40%
[2019-06-23 04:30] LABS: ANION GAP 7 (5-19); BLOOD UREA NITROGEN 9 mg/dL (7-20); CALCIUM 7.2 mg/dL (8.4-10.2); CARBON DIOXIDE 17 mmol/L (22-30); CHLORIDE 106 mmol/L (98-107); GLUCOSE 107 mg/dL (75-110); PHOSPHORUS 3.6 mg/dL (2.5-4.5); POTASSIUM 3.9 mmol/L (3.6-5.0)
[2019-06-23] MEDS: POLYMYXIN B SULFATE/TMP OPH SOLN 10 ML OU SCH ×4 (05:32→23:04)
[2019-06-23] MEDS: HEPARIN SOD (PORCINE) 5,000 UNIT/ML 1 ML VIAL SUBCUT SCH ×3 (05:33→21:09)
[2019-06-23] MEDS: AZTREONAM 2 GM in DEXTROSE 5%-WATER 100 ML IV SCH ×4 (05:33→23:42)
[2019-06-23] MEDS: PHOSPHORUS #1 250 MG TABLET NG SCH ×2 (05:38→13:12)
--- NOTE | 2019-06-23 07:04 | RADIOLOGY REPORT (SQ) ---
CLINICAL HISTORY: r/o enlarging pneumothorax s/p H2O seal chest tube COMPARISON: 06/22/2019. TECHNIQUE: XR CHEST 1 VIEW 06/23/2019 5:00 AM CDT FINDINGS: The heart is borderline in size. There is a left basilar consolidation. There are bilateral pleural effusions. There is no pneumothorax. There are no acute osseous findings. Endotracheal and nasogastric tubes are unchanged. Right chest port is unchanged. IMPRESSION: No change.
[2019-06-23 07:23] LABS: URINE CREATININE 28.5 mg/dL (22-328)
[2019-06-23] MEDS: AMINO AC/PROTEIN HYDR/WHEY PRO 11 GM/45 ML PKT NG SCH ×2 (09:39→18:18)
[2019-06-23] MEDS: LINEZOLID 600 MG/300 ML RTUPB IV SCH ×2 (09:40→21:09)
[2019-06-23] MEDS: SODIUM CHLORIDE 3% 500 ML IV PRN (10:52)
--- NOTE | 2019-06-23 13:06 | PDOC CRITICAL CARE PROG REPORT ---
General Date:: 06/23/19 ICU Day:: 9 Ventilator Day:: 9 Hospital Day:: 10 Resuscitation Status: Full Code Events in the past 12 to 24 Hours:: 06/15: Over the past 24 hours, patient has been status post arrest with tension p neumothorax most likely secondary to chest compressions. Chest tube was placed and tension pneumothorax was resolved. Patient was intubated at time of cardiac arrest and remains intubated on mechanical ventilation. He has a profound metabolic acidosis which is putting a greater demand on his respiratory condition. 06/16: No acute events over the past 24 hours. Patient has been weaned off of Versed and is unfortunately still not responsive. Plan is to continue off of any sedation overnight and if no significant change in mental status, will obtain a head CT in the morning. 06/17: Patient is a little bit more responsive today, although still not alert. Hopeful that he could still make a strong neurologic recovery. His ventilator has been weaned to a pressure support of 16 to 20 cm H2O. Chest tube has minimal output and no air leak on suction. I will look to remove the chest tube today. 06/18: Patient has been tolerating spontaneous mode ventilation. Chest tube removed today. Small, less than 10% apical pneumo on chest x-ray. CT of head obtained to help determine cause of poor mental status. Results pending. 06/19: Pneumothorax increased in size throughout the course of the night. Chest tube was replaced and pneumothorax is resolving. CT of the head was negative for any pathology. Patient still remains awake but not alert, and unable to follow commands. Patient developed ST depressions overnight. Troponins have trended down throughout the day. Cardiology to be consulted. 06/20: Chest tube remains in place. Small apical pneumo on CXR. Patient continues to be awake but not alert and not following commands. ST depressions have improved. Patient appears to be comfortable, however he is tachypneic regardless of level of vent support and continues to have a respiratory alkalosis. 06/21: No change in mental status. Patient continues to have a combined metabolic acidosis with a respiratory alkalosis. MRSA in the sputum. 06/22: Reportedly started on Precedex due to tachypnea and acute respiratory alkalosis yesterday. Remains intubated. No vasopressor need. Right-sided chest tube in situ, under waterseal. No visible airleak. Modest serous drainage. On tube feed (vital 1.5 at 50 mL/h). Remains on 3% saline at 40 mL/h. Most recent sodium 125. No significant change in anoxic encephalopathy. Does open eyes, appears to be awake. Review of systems relevant to events:: Please see complete review of systems below. Reason for ICU Addmission:: status post cardiac arrest - Medications: Medications reviewed and adjusted accordingly: Yes Vasopressors:: None Sedation:: Precedex Physical Exam Vital Signs: Temp Pulse Resp BP Pulse Ox 101.3 F H 93 30 H 112/59 L 100 06/23/19 10:00 06/23/19 08:28 06/23/19 10:00 06/22/19 14:00 06/23/19 11:30 Intake & Output 06/22/19 06/23/19 06/24/19 06:59 06:59 06:59 Intake Total 6230 4400 538 Output Total 2910 5720 1100 Balance 3320 -1320 -562 Weight 75.3 kg 77.7 kg Weight/Height Weight 77.7 kg Height 1.78 m General appearance: PRESENT: no acute distress. ABSENT: morbidly obese Head exam: PRESENT: atraumatic, normocephalic Eye exam: PRESENT: conjunctiva pink, PERRLA. ABSENT: conjunctival injection, nystagmus, scleral icterus Ear exam: ABSENT: bleeding, drainage Mouth exam: PRESENT: moist, other - ET tube in situ. Copious oral secretions. Neck exam: ABSENT: carotid bruit, JVD, tenderness, thyromegaly, tracheal deviation Respiratory exam: PRESENT: rales, rhonchi, unlabored Cardiovascular exam: PRESENT: RRR, tachycardia. ABSENT: systolic murmur Pulses: PRESENT: normal carotid pulses, normal radial pulses GI/Abdominal exam: PRESENT: normal bowel sounds, soft, other - Hiatal hernia. ABSENT: firm, guarding, mass, Lam's sign, organolmegaly, rebound, tenderness Extremities exam: PRESENT: +1 edema, other - Left BKA. ABSENT: calf tenderness, clubbing, joint swelling Neurological exam: PRESENT: altered, other - Spontaneously opens eyes. Spontaneous respirations intact. Does not follow commands. DTRs 1+ bilateral biceps and patellar tendons. Right Babinski equivocal. Status post left BKA. Tubes/Lines: PRESENT: Endotracheal Tube, Chest Tube - R, Arterial Catheter - L fem, Other - Orogastric tube Laboratory/Radiographs Laboratory Results: 06/23/19 03:59 06/23/19 10:48 06/22/19 06/22/19 06/23/19 16:30 22:10 03:59 WBC RBC Hgb Hct MCV MCH MCHC RDW Plt Count Seg Neutrophils % Carbonic Acid 0.76 L HCO3/H2CO3 Ratio 23:1 ABG pH 7.46 H ABG pCO2 25.4 L ABG pO2 79.5 L ABG HCO3 17.6 L ABG O2 Saturation 96.5 ABG Base Excess -4.7 FiO2 40% Sodium 126.0 L 127.8 L Potassium Chloride Carbon Dioxide Anion Gap BUN Creatinine Est GFR ( Amer) Glucose Serum Osmolality Calcium Phosphorus Magnesium Urine Osmolality 06/23/19 06/23/19 06/23/19 03:59 03:59 03:59 WBC 8.6 RBC 3.79 L Hgb 11.5 L Hct 31.5 L MCV 83 MCH 30.3 MCHC 36.4 H RDW 16.7 H Plt Count 262 Seg Neutrophils % 58.7 Carbonic Acid HCO3/H2CO3 Ratio ABG pH ABG pCO2 ABG pO2 ABG HCO3 ABG O2 Saturation ABG Base Excess FiO2 Sodium 130.1 L Potassium 3.9 Chloride 106 Carbon Dioxide 17 L Anion Gap 7 BUN 9 Creatinine 0.32 L Est GFR ( Amer) > 60 Glucose 107 Serum Osmolality 264 L Calcium 7.2 L Phosphorus 3.6 Magnesium 2.2 Urine Osmolality 06/23/19 06/23/19 06:30 10:48 WBC RBC Hgb Hct MCV MCH MCHC RDW Plt Count Seg Neutrophils % Carbonic Acid HCO3/H2CO3 Ratio ABG pH ABG pCO2 ABG pO2 ABG HCO3 ABG O2 Saturation ABG Base Excess FiO2 Sodium 129.6 L Potassium Chloride Carbon Dioxide Anion Gap BUN Creatinine Est GFR ( Amer) Glucose Serum Osmolality Calcium Phosphorus Magnesium Urine Osmolality 542 06/19/19 07:26 Blood Blood Culture - Final Staphylococcus Epidermidis 06/14/19 06/15/19 06/15/19 12:38 03:50 03:50 Creatine Kinase 222 H CK-MB (CK-2) 3.99 Troponin I < 0.012 0.036 06/15/19 06/15/19 06/15/19 12:35 12:35 17:50 Creatine Kinase 590 H 610 H CK-MB (CK-2) 14.20 H Troponin I 0.048 06/15/19 06/19/19 06/20/19 17:50 21:25 02:08 Creatine Kinase CK-MB (CK-2) 19.40 H Troponin I 0.025 0.470 0.402 06/20/19 06/22/19 08:53 06:48 Creatine Kinase CK-MB (CK-2) Troponin I 0.244 0.077 Impressions: Head CT 06/14/19 15:37 IMPRESSION: NORMAL BRAIN CT WITHOUT CONTRAST. EVIDENCE OF ACUTE STROKE: NO. Abdomen/Pelvis CT 06/14/19 19:43 IMPRESSION: No acute intra-abdominal process is identified. The bowel is nonobstructed. Remote postsurgical change. Dependent atelectasis. Moderate hiatal hernia. Imaging is degraded by patient motion, with resultant artifact. The best possible images were obtained.. Head CTA 06/19/19 17:38 IMPRESSION: NO OCCLUSION OF THE MAJOR INTRACRANIAL ARTERIAL VESSELS. THE MORE DISTAL BRANCHES OF THE LEFT MIDDLE CEREBRAL ARTERY ARE SOMEWHAT ATTENUATED COMPARED TO THE RIGHT. MAY BE ARTIFACT DUE TO CONTRAST BOLUS AND POSITIONING OF THE PATIENT'S HEAD BUT CANNOT EXCLUDE THE POSSIBILITY OF VASOSPASM. Neck CTA 06/19/19 17:43 IMPRESSION: 1. NORMAL CTA OF THE EXTRA-CRANIAL CAROTID AND VERTEBRAL ARTERIES. 2. LEFT PLEURAL EFFUSION. RIGHT APICAL PNEUMOTHORAX. THESE FINDINGS HAVE BEEN FOLLOWED ON RECENT X-RAYS. Chest X-Ray 06/23/19 05:00 IMPRESSION: No change. All labs, radiographs, diagnostic studies and EKGs were personally reviewed: Yes In addition, reports of radiographic and diagnostic studies were read: Yes Assessment and Plan - Diagnosis (1) Acute hypoxemic respiratory failure Is this a current diagnosis for this admission?: Yes Plan: Overall, improving. Hold Precedex. Change vent settings to PC mode, F 12, PI 15+PEEP, PEEP 5. Due to delayed neurologic recovery, the patient will likely need tracheostomy. Continue tube feed (Vital 1.5 at 50 mL/h). (2) Anoxic encephalopathy Is this a current diagnosis for this admission?: Yes Plan: Secondary cardiac arrest and prolonged downtime. Frequent neurological examination. (3) Tension pneumothorax Is this a current diagnosis for this admission?: Yes Plan: Keep chest tube to waterseal. Repeat chest x-ray in a.m. (4) Hyponatremia Is this a current diagnosis for this admission?: Yes Plan: Continue 3% saline. BMP every 6 hours. Avoid overly rapid correction. (5) Substance abuse Is this a current diagnosis for this admission?: Yes Plan: Of note, the patient's urine drug screen was positive for amphetamines, benzodiazepines and cocaine. Critical Time Critical Time (minutes): 60 Level of Care: ICU -: 1. The care of a critical patient is a dynamic process. This note is a represe ntative synopsis but static in nature. The timeframe for treatments given in order is not necessarily the actual time these treatments may have been done. 2. This patient requires critical care secondary to ongoing requirements for therapy not offered or safe outside the critical care environment. Transfer to a lower level of care will result in altered life or limb morbidity and mortality. 3. Multidisciplinary rounds completed. 4. ABCDE bundle addressed.
[2019-06-23] MEDS: ACETAMINOPHEN SOLN 325 MG/10.15 ML UDCUP NG PRN ×2 (13:09→21:09)
[2019-06-23 14:00] LABS: ARTERIAL BLOOD BASE EXCESS -3.6 mmol/L; ARTERIAL BLOOD FIO2 30%; ARTERIAL BLOOD H2CO3 0.76 mmol/L (1.05-1.35); ARTERIAL BLOOD HCO3 18.4 mmol/L (20-24); ARTERIAL BLOOD O2 SATURATION 97.3 % (94-98); ARTERIAL BLOOD PCO2 25.3 mmHg (35-45); ARTERIAL BLOOD PH 7.48 (7.35-7.45); ARTERIAL BLOOD PO2 87.1 mmHg (80-100); ARTERIAL BLOOD TOTAL CO2 19.2 mmol/L (23-27)
[2019-06-23] MEDS ORDERED: SODIUM CHLORIDE 3% 500 ML IV ONE (14:00)
[2019-06-24 03:27] LABS: ABSOLUTE EOSINOPHILS # (AUTO) 1.1 10^3/uL (0.0-0.6); ABSOLUTE LYMPHOCYTES (AUTO) 1.7 10^3/uL (0.5-4.7); ABSOLUTE MONOCYTES (AUTO) 1.1 10^3/uL (0.1-1.4); ABSOLUTE NEUT (AUTO) 5.9 10^3/uL (1.7-8.2); BASOPHILS % (AUTO) 0.2 % (0-2); EOSINOPHILS % (AUTO) 11.7 % (0-6); HEMATOCRIT 30.2 % (37.9-51.0); HEMOGLOBIN 10.8 g/dL (13.5-17.0); LYMPHOCYTES % (AUTO) 16.8 % (13-45); MEAN CORPUSCULAR HEMOGLOBIN 30.2 pg (27.0-33.4); MEAN CORPUSCULAR HGB CONC 35.9 g/dL (32.0-36.0); MEAN CORPUSCULAR VOLUME 84 fl (80-97); MONOCYTES % (AUTO) 10.8 % (3-13); PLATELET COUNT 289 10^3/uL (150-450); RED BLOOD COUNT 3.59 10^6/uL (4.35-5.55); RED CELL DISTRIBUTION WIDTH 17.2 % (11.5-14.0); SEGMENTED NEUTROPHILS % (AUTO) 60.5 % (42-78); TOTAL CELLS COUNTED % (AUTO) 100 %; WHITE BLOOD COUNT 9.8 10^3/uL (4.0-10.5)
[2019-06-24 03:30] LABS: ARTERIAL BLOOD BASE EXCESS -5.3 mmol/L; ARTERIAL BLOOD H2CO3 0.81 mmol/L (1.05-1.35); ARTERIAL BLOOD HCO3 17.6 mmol/L (20-24); ARTERIAL BLOOD O2 SATURATION 97.2 % (94-98); ARTERIAL BLOOD PCO2 26.9 mmHg (35-45); ARTERIAL BLOOD PH 7.43 (7.35-7.45); ARTERIAL BLOOD PO2 89.7 mmHg (80-100); ARTERIAL BLOOD TOTAL CO2 18.4 mmol/L (23-27)
[2019-06-24 03:32] LABS: ARTERIAL BLOOD FIO2 30%
[2019-06-24 03:44] LABS: BLOOD UREA NITROGEN 10 mg/dL (7-20); CALCIUM 7.4 mg/dL (8.4-10.2); CARBON DIOXIDE 20 mmol/L (22-30); CHLORIDE 107 mmol/L (98-107); GLUCOSE 103 mg/dL (75-110); PHOSPHORUS 3.7 mg/dL (2.5-4.5); POTASSIUM 3.4 mmol/L (3.6-5.0)
[2019-06-24] MEDS ORDERED: SODIUM CHLORIDE 1 GM TABLET NG SCH (04:00)
[2019-06-24 04:21] LABS: ANION GAP 4 (5-19)
[2019-06-24] MEDS ORDERED: SODIUM CHLORIDE 1 GM TABLET ONE (04:52)
[2019-06-24] MEDS: HEPARIN SOD (PORCINE) 5,000 UNIT/ML 1 ML VIAL SUBCUT SCH ×3 (05:05→23:13)
[2019-06-24] MEDS: POLYMYXIN B SULFATE/TMP OPH SOLN 10 ML OU SCH ×4 (05:06→23:14)
[2019-06-24] MEDS: AZTREONAM 2 GM in DEXTROSE 5%-WATER 100 ML IV SCH ×3 (05:06→17:59)
[2019-06-24] MEDS: IPRATROPIUM/ALBUTEROL 0.5-2.5 MG/3 ML AMPUL NEB SCH ×2 (08:29→16:10)
--- NOTE | 2019-06-24 08:39 | RADIOLOGY REPORT (SQ) ---
EXAM DESCRIPTION: CHEST SINGLE VIEW IMAGES COMPLETED DATE/TIME: 06/24/2019 7:05 am REASON FOR STUDY: ETT position; acute respiratory failure COMPARISON: AP view of the chest from 06/23/2019. EXAM PARAMETERS: NUMBER OF VIEWS: One view. TECHNIQUE: An AP view of the chest was obtained. RADIATION DOSE: NA LIMITATIONS: None. FINDINGS: LUNGS AND PLEURA: Unchanged dense opacity in the inferior left hemithorax that obscures th e contour of the left hemidiaphragm and blunts the left lateral costophrenic sulcus. The size of the right apical pneumothorax is also unchanged. MEDIASTINUM AND HILAR STRUCTURES: Stable mediastinal and hilar contours. HEART AND VASCULAR STRUCTURES: Stable cardiac silhouette. BONES: No acute findings. HARDWARE: The tip of the right subclavian vein approach single-lumen port projects within the right s ubclavian vein. The tip of the endotracheal tube projects 2.7 cm above the jerry. The tip of the e nteric tube projects past the gastroesophageal junction and outside the field of view of the radiogra ph. There is a large bore chest tube in place on the right side. OTHER: No other finding. IMPRESSION: 1. Unchanged right apical pneumothorax that measures approximately 1.6 cm (measured fro m the edge of the lung to the inner surface of the adjacent 1st rib.) 2. Stable opacity in the inferior left hemithorax that could represent a combination of pleural flui d, atelectasis and or consolidation. 3. Tubes and lines as above. TECHNICAL DOCUMENTATION: JOB ID: [id number] 2010 [employer]- All Rights Reserved Reading location - IP/workstation name: [email or web address]
[2019-06-24] MEDS: LINEZOLID 600 MG/300 ML RTUPB IV SCH ×2 (11:00→23:14)
[2019-06-24] MEDS: AMINO AC/PROTEIN HYDR/WHEY PRO 11 GM/45 ML PKT NG SCH ×2 (11:00→17:34)
[2019-06-24] MEDS: SODIUM CHLORIDE 1 GM TABLET NG SCH ×2 (13:33→17:34)
[2019-06-24] MEDS ORDERED: SODIUM CHLORIDE 3% 500 ML IV PRN (16:05)
--- NOTE | 2019-06-24 17:38 | PDOC CRITICAL CARE PROG REPORT ---
General Date:: 06/24/19 ICU Day:: 10 Ventilator Day:: 10 Hospital Day:: 11 Resuscitation Status: Full Code Events in the past 12 to 24 Hours:: 06/15: Over the past 24 hours, patient has been status post arrest with tension pneumothorax most likely secondary to chest compressions. Chest tube was placed and tension pneumothorax was resolved. Patient was intubated at time of cardiac arrest and remains intubated on mechanical ventilation. He has a profound metabolic acidosis which is putting a greater demand on his respiratory condition. 06/16: No acute events over the past 24 hours. Patient has been weaned off of V ersed and is unfortunately still not responsive. Plan is to continue off of any sedation overnight and if no significant change in mental status, will obtain a head CT in the morning. 06/17: Patient is a little bit more responsive today, although still not alert. Hopeful that he could still make a strong neurologic recovery. His ventilator has been weaned to a pressure support of 16 to 20 cm H2O. Chest tube has minimal output and no air leak on suction. I will look to remove the chest tube today. 06/18: Patient has been tolerating spontaneous mode ventilation. Chest tube removed today. Small, less than 10% apical pneumo on chest x-ray. CT of head obtained to help determine cause of poor mental status. Results pending. 06/19: Pneumothorax increased in size throughout the course of the night. Chest tube was replaced and pneumothorax is resolving. CT of the head was negative for any pathology. Patient still remains awake but not alert, and unable to follow commands. Patient developed ST depressions overnight. Troponins have trended down throughout the day. Cardiology to be consulted. 06/20: Chest tube remains in place. Small apical pneumo on CXR. Patient continues to be awake but not alert and not following commands. ST depressions have improved. Patient appears to be comfortable, however he is tachypneic regardless of level of vent support and continues to have a respiratory alkalosis. 06/21: No change in mental status. Patient continues to have a combined metabolic acidosis with a respiratory alkalosis. MRSA in the sputum. 06/22: Reportedly started on Precedex due to tachypnea and acute respiratory alkalosis yesterday. Remains intubated. No vasopressor need. Right-sided chest tube in situ, under waterseal. No visible airleak. Modest serous drainage. On tube feed (vital 1.5 at 50 mL/h). Remains on 3% saline at 40 mL/h. Most recent sodium 125. No significant change in anoxic encephalopathy. Does open eyes, appears to be awake. 06/23: Off Precedex. No significant change in anoxic encephalopathy. Does open eyes spontaneously, but does not follow commands. Remains intubated. No vasopressor need. Right-sided chest tube in situ, under waterseal. No visible airleak, but repeat chest x-ray this a.m. shows no interval improvement. On tube feed (vital 1.5 at 50 mL/h). Remains on 3% saline at 40 mL/h. Most recent sodium 131. Review of systems relevant to events:: Neurologic: Encephalopathy Respiratory: Tension pneumothorax, endotracheal intubation, MRSA pneumonia Gastrointestinal: Diarrhea Reason for ICU Addmission:: status post cardiac arrest - Medications: Medications reviewed and adjusted accordingly: Yes Vasopressors:: None Sedation:: None Physical Exam Vital Signs: Temp Pulse Resp BP Pulse Ox 100.9 F H 92 0 L 121/62 100 06/24/19 11:21 06/24/19 08:29 06/24/19 11:21 06/24/19 11:21 06/24/19 11:33 Intake & Output 06/23/19 06/24/19 06/25/19 06:59 06:59 06:59 Intake Total 4400 1398 Output Total 5720 3205 675 Balance -1320 -1807 -675 Weight 77.7 kg 78.3 kg Weight/Height Weight 78.3 kg Height 1.78 m General appearance: PRESENT: no acute distress Head exam: PRESENT: atraumatic, normocephalic Eye exam: PRESENT: conjunctiva pink, EOMI, PERRLA Mouth exam: PRESENT: moist Neck exam: ABSENT: JVD, tenderness, tracheal deviation Respiratory exam: PRESENT: clear to auscultation mindy. ABSENT: rales, rhonchi Cardiovascular exam: PRESENT: RRR, tachycardia Pulses: PRESENT: normal carotid pulses, normal radial pulses, normal dorsalis pedis pul Extremities exam: PRESENT: pedal edema, other - Left BKA. ABSENT: clubbing Musculoskeletal exam: PRESENT: normal inspection. ABSENT: deformity Neurological exam: PRESENT: altered, CN II-XII grossly intact Skin exam: PRESENT: dry, intact, normal color. ABSENT: petechiae, rash Tubes/Lines: PRESENT: Endotracheal Tube, Chest Tube - R, Arterial Catheter - Left femoral, Other - Orogastric tube Laboratory/Radiographs Laboratory Results: 06/24/19 03:09 06/24/19 03:09 06/23/19 06/23/19 06/23/19 13:45 16:50 21:34 WBC RBC Hgb Hct MCV MCH MCHC RDW Plt Count Seg Neutrophils % Carbonic Acid 0.76 L HCO3/H2CO3 Ratio 24:1 ABG pH 7.48 H ABG pCO2 25.3 L ABG pO2 87.1 ABG HCO3 18.4 L ABG O2 Saturation 97.3 ABG Base Excess -3.6 FiO2 30% Sodium 129.9 L 130.0 L Potassium Chloride Carbon Dioxide Anion Gap BUN Creatinine Est GFR ( Amer) Glucose Calcium Phosphorus Magnesium 06/24/19 06/24/19 06/24/19 03:09 03:09 03:09 WBC 9.8 RBC 3.59 L Hgb 10.8 L Hct 30.2 L MCV 84 MCH 30.2 MCHC 35.9 RDW 17.2 H Plt Count 289 Seg Neutrophils % 60.5 Carbonic Acid 0.81 L HCO3/H2CO3 Ratio 21:1 ABG pH 7.43 ABG pCO2 26.9 L ABG pO2 89.7 ABG HCO3 17.6 L ABG O2 Saturation 97.2 ABG Base Excess -5.3 FiO2 30% Sodium 131.0 L Potassium 3.4 L Chloride 107 Carbon Dioxide 20 L Anion Gap 4 L BUN 10 Creatinine 0.32 L Est GFR ( Amer) > 60 Glucose 103 Calcium 7.4 L Phosphorus 3.7 Magnesium 1.9 06/22/19 05:15 Sputum Gram Stain - Final 06/22/19 05:15 Sputum Sputum Culture - Final Mrsa (Meth Resis Staph Aureus) Normal Rupali Absent 06/19/19 08:12 Blood Blood Culture - Final NO GROWTH IN 5 DAYS 06/19/19 07:26 Blood Blood Culture - Final Staphylococcus Epidermidis 06/14/19 06/15/19 06/15/19 12:38 03:50 03:50 Creatine Kinase 222 H CK-MB (CK-2) 3.99 Troponin I < 0.012 0.036 06/15/19 06/15/19 06/15/19 12:35 12:35 17:50 Creatine Kinase 590 H 610 H CK-MB (CK-2) 14.20 H Troponin I 0.048 06/15/19 06/19/19 06/20/19 17:50 21:25 02:08 Creatine Kinase CK-MB (CK-2) 19.40 H Troponin I 0.025 0.470 0.402 06/20/19 06/22/19 08:53 06:48 Creatine Kinase CK-MB (CK-2) Troponin I 0.244 0.077 Impressions: Head CT 06/14/19 15:37 IMPRESSION: NORMAL BRAIN CT WITHOUT CONTRAST. EVIDENCE OF ACUTE STROKE: NO. Abdomen/Pelvis CT 06/14/19 19:43 IMPRESSION: No acute intra-abdominal process is identified. The bowel is nonobstructed. Remote postsurgical change. Dependent atelectasis. Moderate hiatal hernia. Imaging is degraded by patient motion, with resultant artifact. The best possible images were obtained.. Head CTA 06/19/19 17:38 IMPRESSION: NO OCCLUSION OF THE MAJOR INTRACRANIAL ARTERIAL VESSELS. THE MORE DISTAL BRANCHES OF THE LEFT MIDDLE CEREBRAL ARTERY ARE SOMEWHAT ATTENUATED COMPARED TO THE RIGHT. MAY BE ARTIFACT DUE TO CONTRAST BOLUS AND POSITIONING OF THE PATIENT'S HEAD BUT CANNOT EXCLUDE THE POSSIBILITY OF VASOSPASM. Neck CTA 06/19/19 17:43 IMPRESSION: 1. NORMAL CTA OF THE EXTRA-CRANIAL CAROTID AND VERTEBRAL ARTERIES. 2. LEFT PLEURAL EFFUSION. RIGHT APICAL PNEUMOTHORAX. THESE FINDINGS HAVE BEEN FOLLOWED ON RECENT X-RAYS. Chest X-Ray 06/24/19 05:00 IMPRESSION: 1. Unchanged right apical pneumothorax that measures approximately 1.6 cm (measured from the edge of the lung to the inner surface of the adjacent 1st rib.) 2. Stable opacity in the inferior left hemithorax that could represent a combination of pleural fluid, atelectasis and or consolidation. 3. Tubes and lines as above. All labs, radiographs, diagnostic studies and EKGs were personally reviewed: Yes In addition, reports of radiographic and diagnostic studies were read: Yes Assessment and Plan - Diagnosis (1) Acute hypoxemic respiratory failure Is this a current diagnosis for this admission?: Yes Plan: Overall, improving but remains intubated due to altered mental status. Continue to hold Precedex. Due to delayed neurologic recovery, the patient will likely need tracheostomy. Continue tube feed: Will change vital to [facility] for its fiber content (Benefiber is apparently not available in this hospital). (2) Anoxic encephalopathy Is this a current diagnosis for this admission?: Yes Plan: Secondary to cardiac arrest and prolonged downtime. Frequent neurological examination. (3) Tension pneumothorax Is this a current diagnosis for this admission?: Yes Plan: Roll patient onto his left side. Chest tube to wall suction. Repeat chest x-ray at 1800. (4) Hyponatremia Is this a current diagnosis for this admission?: Yes Plan: Continue 3% saline. BMP every 6 hours. Avoid overly rapid correction. (5) Substance abuse Is this a current diagnosis for this admission?: Yes Plan: Of note, the patient's urine drug screen was positive for amphetamines, benzodiazepines and cocaine. Critical Time Critical Time (minutes): 60 Level of Care: ICU -: 1. The care of a critical patient is a dynamic process. This note is a security systems sales representative synopsis but static in nature. The timeframe for treatments given in order is not necessarily the actual time these treatments may have been done. 2. This patient requires critical care secondary to ongoing requirements for therapy not offered or safe outside the critical care environment. Transfer to a lower level of care will result in altered life or limb morbidity and mortality. 3. Multidisciplinary rounds completed. 4. ABCDE bundle addressed.
--- NOTE | 2019-06-24 17:57 | Progress Note ---
Provider Note Provider Note: The patient's oldest son (Hank Landers, ) called to express his opinion that we should shift gears and pursue comfort measures only. He voiced understanding that in current COVID crisis, we are unable to physically meet for all [id number] discussions. The patient's daughter (Anju Russell, ) expressed similar wishes and her intention to contact all of her siblings. They understand that according to [place] state law, the siblings (as next of kin) will need to electively arrive at an agreement regarding both of care and CODE STATUS. They have agreed to individually call and. They are requesting that, when all of the siblings have expressed the desire to transition to comfort care, the hospital make arrangements to allow for family visitation subsequent to withdrawal of definitive care.
[2019-06-24 18:25] LABS: ARTERIAL BLOOD BASE EXCESS -0.9 mmol/L; ARTERIAL BLOOD H2CO3 0.88 mmol/L (1.05-1.35); ARTERIAL BLOOD HCO3 21.8 mmol/L (20-24); ARTERIAL BLOOD O2 SATURATION 97.6 % (94-98); ARTERIAL BLOOD PCO2 29.4 mmHg (35-45); ARTERIAL BLOOD PH 7.49 (7.35-7.45); ARTERIAL BLOOD PO2 91.9 mmHg (80-100); ARTERIAL BLOOD TOTAL CO2 22.7 mmol/L (23-27)
[2019-06-24 18:27] LABS: ARTERIAL BLOOD FIO2 30%
--- NOTE | 2019-06-24 18:30 | RADIOLOGY REPORT (SQ) ---
EXAM DESCRIPTION: CHEST SINGLE VIEW IMAGES COMPLETED DATE/TIME: 06/24/2019 6:07 pm REASON FOR STUDY: R pneumothorax COMPARISON: Chest films 06/24/2019, 06/23/2019, 06/22/2019, 06/21/2019 EXAM PARAMETERS: NUMBER OF VIEWS: One view. TECHNIQUE: Single frontal radiographic view of the chest acquired. RADIATION DOSE: NA LIMITATIONS: None. FINDINGS: LUNGS AND PLEURA: Stable small right apical pneumothorax. Right-sided large bore chest tube is in place, unchanged. No right pleural effusion. No focal right -sided airspace disease. Left basilar consolidation is present unchanged. Small left pleural effusion could not be excluded. No left pneumothorax. MEDIASTINUM AND HILAR STRUCTURES: No masses. Contour normal. HEART AND VASCULAR STRUCTURES: Heart normal in size. Normal vasculature. BONES: No acute findings. HARDWARE: Endotracheal tube tip 3 cm above the jerry. Nasogastric tube tip and side port in the sto mach. Large bore right chest tube unchanged. Aberrant right-sided permanent central line with the t ip doubled back upon itself in the subclavian vein, unchanged. OTHER: No other significant finding. IMPRESSION: Stable right apical pneumothorax and right chest tube. Endotracheal and nasogastric tubes in good positioning. Stable left basilar consolidation and pleural effusion TECHNICAL DOCUMENTATION: JOB ID: [id number] 2010 [employer]- All Rights Reserved Reading location - IP/workstation name: [email or web address]
[2019-06-25] MEDS: IPRATROPIUM/ALBUTEROL 0.5-2.5 MG/3 ML AMPUL NEB SCH ×3 (00:05→15:39)
[2019-06-25] MEDS: SODIUM CHLORIDE 1 GM TABLET NG SCH ×4 (00:30→17:24)
[2019-06-25] MEDS: AZTREONAM 2 GM in DEXTROSE 5%-WATER 100 ML IV SCH ×4 (00:30→17:24)
[2019-06-25] MEDS: HEPARIN SOD (PORCINE) 5,000 UNIT/ML 1 ML VIAL SUBCUT SCH ×3 (05:22→21:28)
[2019-06-25] MEDS: POLYMYXIN B SULFATE/TMP OPH SOLN 10 ML OU SCH ×3 (05:23→17:24)
[2019-06-25 05:27] LABS: ANION GAP 6 (5-19); BLOOD UREA NITROGEN 8 mg/dL (7-20); CALCIUM 7.6 mg/dL (8.4-10.2); CARBON DIOXIDE 21 mmol/L (22-30); CHLORIDE 101 mmol/L (98-107); GLUCOSE 102 mg/dL (75-110); PHOSPHORUS 4.3 mg/dL (2.5-4.5); POTASSIUM 3.5 mmol/L (3.6-5.0)
[2019-06-25] MEDS ORDERED: RINGERS SOLUTION,LACTATED 1,000 ML IV PRN (06:29)
[2019-06-25] MEDS ORDERED: POTASSIUM CHLORIDE 20 MEQ PACKET NG ONE (07:19)
[2019-06-25] MEDS: MAGNESIUM SULFATE/D5W 1 GM/100 ML RTUPB IV SCH ×2 (08:22→09:20)
--- NOTE | 2019-06-25 08:34 | RADIOLOGY REPORT (SQ) ---
EXAM DESCRIPTION: CHEST SINGLE VIEW IMAGES COMPLETED DATE/TIME: 06/25/2019 6:23 am REASON FOR STUDY: ETT position; acute respiratory failure COMPARISON: 06/24/2019 EXAM PARAMETERS: NUMBER OF VIEWS: One view. TECHNIQUE: Single frontal radiographic view of the chest acquired. RADIATION DOSE: NA LIMITATIONS: None. FINDINGS: LUNGS AND PLEURA: Grossly stable trace right apical pneumothorax. Unchanged dense left lo wer lobe consolidation. No significant effusion. MEDIASTINUM AND HILAR STRUCTURES: Stable. HEART AND VASCULAR STRUCTURES: Enlarged, stable. Vascular calcifications. BONES: No acute findings. HARDWARE: Large-bore right-sided chest tube, stable. Right subclavian based chest port with catheter tip looped upon itself and directed laterally and overlying the subclavian vein. OTHER: No other significant finding. IMPRESSION: Stable small right apical pneumothorax. Stable right-sided chest tube. Endotracheal tube tip overlies midthoracic trachea, stable. Persistent dense left basilar consolidation, likely atelectasis. TECHNICAL DOCUMENTATION: JOB ID: [id number] 2010 [employer]- All Rights Reserved Reading location - IP/workstation name: [email or web address]
[2019-06-25] MEDS: LINEZOLID 600 MG/300 ML RTUPB IV SCH ×2 (09:24→21:27)
[2019-06-25] MEDS: AMINO AC/PROTEIN HYDR/WHEY PRO 11 GM/45 ML PKT NG SCH ×2 (10:17→17:24)
[2019-06-25 15:05] LABS: ALBUMIN 2.2 g/dL (3.5-5.0); ALKALINE PHOSPHATASE 79 U/L (38-126); ANION GAP 7 (5-19); ASPARTATE AMINO TRANSFERASE 60 U/L (17-59); BILIRUBIN,TOTAL 0.4 mg/dL (0.2-1.3); BLOOD UREA NITROGEN 9 mg/dL (7-20); CALCIUM 7.6 mg/dL (8.4-10.2); CARBON DIOXIDE 22 mmol/L (22-30); CHLORIDE 98 mmol/L (98-107); GLUCOSE 100 mg/dL (75-110); TOTAL PROTEIN 4.5 g/dL (6.3-8.2)
[2019-06-25] MEDS: SODIUM CHLORIDE 3% 500 ML IV PRN (18:16)
[2019-06-25 22:06] LABS: ANION GAP 7 (5-19); BLOOD UREA NITROGEN 8 mg/dL (7-20); CALCIUM 7.8 mg/dL (8.4-10.2); CARBON DIOXIDE 23 mmol/L (22-30); CHLORIDE 96 mmol/L (98-107); GLUCOSE 93 mg/dL (75-110); POTASSIUM 4.1 mmol/L (3.6-5.0)
[2019-06-26] MEDS: IPRATROPIUM/ALBUTEROL 0.5-2.5 MG/3 ML AMPUL NEB SCH ×3 (00:26→16:29)
[2019-06-26] MEDS: AZTREONAM 2 GM in DEXTROSE 5%-WATER 100 ML IV SCH ×5 (00:52→23:32)
[2019-06-26] MEDS: ACETAMINOPHEN SOLN 325 MG/10.15 ML UDCUP NG PRN ×2 (00:52→18:27)
[2019-06-26] MEDS: POLYMYXIN B SULFATE/TMP OPH SOLN 10 ML OU SCH ×5 (00:52→23:09)
[2019-06-26] MEDS: SODIUM CHLORIDE 1 GM TABLET NG SCH ×5 (00:55→23:32)
[2019-06-26 03:00] LABS: BLOOD UREA NITROGEN 9 mg/dL (7-20); CALCIUM 7.7 mg/dL (8.4-10.2); CARBON DIOXIDE 23 mmol/L (22-30); CHLORIDE 99 mmol/L (98-107); GLUCOSE 133 mg/dL (75-110); POTASSIUM 3.7 mmol/L (3.6-5.0)
[2019-06-26 03:11] LABS: ANION GAP 5 (5-19)
[2019-06-26 03:23] LABS: URINE CREATININE 54.8 mg/dL (22-328)
[2019-06-26] MEDS: HEPARIN SOD (PORCINE) 5,000 UNIT/ML 1 ML VIAL SUBCUT SCH ×3 (05:47→21:37)
[2019-06-26] MEDS: SODIUM CHLORIDE 3% 500 ML IV PRN (05:48)
--- NOTE | 2019-06-26 07:02 | RADIOLOGY REPORT (SQ) ---
CHEST 1 VIEW on 06/26/2019 at 5:45 AM CLINICAL INDICATION: Intubated, respiratory failure COMPARISON: 06/25/2019 FINDINGS: ET tube tip is in the mid to lower thoracic trachea. NG tube extends into the stomach and below the level of this film. Right subclavian Port-A-Cath is again curled in the region of the right brachiocephalic vein with its tip pointed to the right and distally within the right subclavian. Right chest tube is unchanged in position. There is likely a tiny residual right apical pneumothorax but this has improved compared with the prior study. There is continued left lower lung opacity consistent with atelectasis and/or pneumonia and probable small left pleural effusion. Heart is within normal limits for size. IMPRESSION: 1. Improved right apical pneumothorax with a probable tiny apical pneumothorax remaining. 2. Otherwise no significant change.
[2019-06-26 09:22] LABS: ANION GAP 7 (5-19); BLOOD UREA NITROGEN 9 mg/dL (7-20); CALCIUM 7.5 mg/dL (8.4-10.2); CARBON DIOXIDE 21 mmol/L (22-30); CHLORIDE 100 mmol/L (98-107); GLUCOSE 92 mg/dL (75-110); PHOSPHORUS 4.5 mg/dL (2.5-4.5)
[2019-06-26 09:32] LABS: ARTERIAL BLOOD H2CO3 0.85 mmol/L (1.05-1.35); ARTERIAL BLOOD HCO3 21.3 mmol/L (20-24); ARTERIAL BLOOD O2 SATURATION 97.6 % (94-98); ARTERIAL BLOOD PCO2 28.2 mmHg (35-45); ARTERIAL BLOOD PO2 91.2 mmHg (80-100); ARTERIAL BLOOD TOTAL CO2 22.1 mmol/L (23-27)
[2019-06-26 09:33] LABS: ARTERIAL BLOOD FIO2 30%
[2019-06-26] MEDS: AMINO AC/PROTEIN HYDR/WHEY PRO 11 GM/45 ML PKT NG SCH ×2 (10:51→17:47)
[2019-06-26] MEDS: LINEZOLID 600 MG/300 ML RTUPB IV SCH ×2 (10:51→22:01)
--- NOTE | 2019-06-26 14:24 | PDOC CRITICAL CARE PROG REPORT ---
General Date:: 06/25/19 ICU Day:: 11 Ventilator Day:: 11 Hospital Day:: 12 Resuscitation Status: Full Code Events in the past 12 to 24 Hours:: 06/15: Over the past 24 hours, patient has been status post arrest with tension pneumothorax most likely secondary to chest compressions. Chest tube was placed and tension pneumothorax was resolved. Patient was intubated at time of cardiac arrest and remains intubated on mechanical ventilation. He has a profound metabolic acidosis which is putting a greater demand on his respiratory condition. 06/16: No acute events over the past 24 hours. Patient has been weaned off of V ersed and is unfortunately still not responsive. Plan is to continue off of any sedation overnight and if no significant change in mental status, will obtain a head CT in the morning. 06/17: Patient is a little bit more responsive today, although still not alert. Hopeful that he could still make a strong neurologic recovery. His ventilator has been weaned to a pressure support of 16 to 20 cm H2O. Chest tube has minimal output and no air leak on suction. I will look to remove the chest tube today. 06/18: Patient has been tolerating spontaneous mode ventilation. Chest tube removed today. Small, less than 10% apical pneumo on chest x-ray. CT of head obtained to help determine cause of poor mental status. Results pending. 06/19: Pneumothorax increased in size throughout the course of the night. Chest tube was replaced and pneumothorax is resolving. CT of the head was negative for any pathology. Patient still remains awake but not alert, and unable to follow commands. Patient developed ST depressions overnight. Troponins have trended down throughout the day. Cardiology to be consulted. 06/20: Chest tube remains in place. Small apical pneumo on CXR. Patient continues to be awake but not alert and not following commands. ST depressions have improved. Patient appears to be comfortable, however he is tachypneic regardless of level of vent support and continues to have a respiratory alkalosis. 06/21: No change in mental status. Patient continues to have a combined metabolic acidosis with a respiratory alkalosis. MRSA in the sputum. 06/22: Reportedly started on Precedex due to tachypnea and acute respiratory alkalosis yesterday. Remains intubated. No vasopressor need. Right-sided chest tube in situ, under waterseal. No visible airleak. Modest serous drainage. On tube feed (vital 1.5 at 50 mL/h). Remains on 3% saline at 40 mL/h. Most recent sodium 125. No significant change in anoxic encephalopathy. Does open eyes, appears to be awake. 06/23: Off Precedex. No significant change in anoxic encephalopathy. Does open eyes spontaneously, but does not follow commands. Remains intubated. No vasopressor need. Right-sided chest tube in situ, under waterseal. No visible airleak, but repeat chest x-ray this a.m. shows no interval improvement. On tube feed (vital 1.5 at 50 mL/h). Remains on 3% saline at 40 mL/h. Most recent sodium 131. 06/24: CXR shows modest improvement in R pneumothorax after positioning patient L side down. Chest tube to wall suction. No significant change in neurologic status. Remains intubated. No vasopressor need. On TF. On 3% saline but with interval decrease in Na 128. Port-A-Cath has been accessed and found to be functioning. Review of systems relevant to events:: Neurologic: Encephalopathy Respiratory: Tension pneumothorax, endotracheal intubation, MRSA pneumonia Gastrointestinal: Diarrhea Reason for ICU Addmission:: status post cardiac arrest - Medications: Medications reviewed and adjusted accordingly: Yes Vasopressors:: None Sedation:: None Physical Exam Vital Signs: Temp Pulse Resp BP Pulse Ox 100.0 F 90 24 H 119/68 97 06/25/19 10:12 06/25/19 08:26 06/25/19 10:12 06/25/19 10:12 06/25/19 12:45 Intake & Output 06/24/19 06/25/19 06/26/19 06:59 06:59 06:59 Intake Total 1398 1260 230 Output Total 3204 4680 1050 Balance -1807 -3375 -820 Weight 78.3 kg 76.7 kg Weight/Height Weight 76.7 kg Height 1.78 m General appearance: PRESENT: no acute distress, well-developed, well-nourished Head exam: PRESENT: atraumatic, normocephalic Eye exam: PRESENT: conjunctiva pink, EOMI, PERRLA. ABSENT: scleral icterus Mouth exam: PRESENT: moist, tongue midline Neck exam: ABSENT: carotid bruit, JVD, lymphadenopathy, thyromegaly Respiratory exam: PRESENT: clear to auscultation mindy, other - Right-sided chest tube. ABSENT: rales, rhonchi, wheezes Cardiovascular exam: PRESENT: RRR, tachycardia. ABSENT: diastolic murmur, rubs, systolic murmur Pulses: PRESENT: normal dorsalis pedis pul GI/Abdominal exam: PRESENT: normal bowel sounds, soft. ABSENT: distended, guarding, mass, organolmegaly, rebound, tenderness Extremities exam: PRESENT: pedal edema, other - Status post left BKA. ABSENT: calf tenderness, clubbing Skin exam: PRESENT: dry, intact, warm. ABSENT: cyanosis, rash Tubes/Lines: PRESENT: Endotracheal Tube, Chest Tube - R, Arterial Catheter - Left femoral, Other - Orogastric tube Laboratory/Radiographs Laboratory Results: 06/24/19 03:09 06/25/19 04:51 06/24/19 06/25/19 16:10 04:51 Carbonic Acid 0.88 L HCO3/H2CO3 Ratio 24:1 ABG pH 7.49 H ABG pCO2 29.4 L ABG pO2 91.9 ABG HCO3 21.8 ABG O2 Saturation 97.6 ABG Base Excess -0.9 FiO2 30% Sodium 128.4 L Potassium 3.5 L Chloride 101 Carbon Dioxide 21 L Anion Gap 6 BUN 8 Creatinine 0.28 L Est GFR ( Amer) > 60 Glucose 102 Calcium 7.6 L Phosphorus 4.3 Magnesium 1.8 06/22/19 05:15 Sputum Gram Stain - Final 06/22/19 05:15 Sputum Sputum Culture - Final Mrsa (Meth Resis Staph Aureus) Normal Rupali Absent 06/14/19 06/15/19 06/15/19 12:38 03:50 03:50 Creatine Kinase 222 H CK-MB (CK-2) 3.99 Troponin I < 0.012 0.036 06/15/19 06/15/19 06/15/19 12:35 12:35 17:50 Creatine Kinase 590 H 610 H CK-MB (CK-2) 14.20 H Troponin I 0.048 06/15/19 06/19/19 06/20/19 17:50 21:25 02:08 Creatine Kinase CK-MB (CK-2) 19.40 H Troponin I 0.025 0.470 0.402 06/20/19 06/22/19 08:53 06:48 Creatine Kinase CK-MB (CK-2) Troponin I 0.244 0.077 Impressions: Head CT 06/14/19 15:37 IMPRESSION: NORMAL BRAIN CT WITHOUT CONTRAST. EVIDENCE OF ACUTE STROKE: NO. Abdomen/Pelvis CT 06/14/19 19:43 IMPRESSION: No acute intra-abdominal process is identified. The bowel is nonobstructed. Remote postsurgical change. Dependent atelectasis. Moderate hiatal hernia. Imaging is degraded by patient motion, with resultant artifact. The best possible images were obtained.. Head CTA 06/19/19 17:38 IMPRESSION: NO OCCLUSION OF THE MAJOR INTRACRANIAL ARTERIAL VESSELS. THE MORE DISTAL BRANCHES OF THE LEFT MIDDLE CEREBRAL ARTERY ARE SOMEWHAT ATTENUATED COMPARED TO THE RIGHT. MAY BE ARTIFACT DUE TO CONTRAST BOLUS AND POSITIONING OF THE PATIENT'S HEAD BUT CANNOT EXCLUDE THE POSSIBILITY OF VASOSPASM. Neck CTA 06/19/19 17:43 IMPRESSION: 1. NORMAL CTA OF THE EXTRA-CRANIAL CAROTID AND VERTEBRAL ARTERIES. 2. LEFT PLEURAL EFFUSION. RIGHT APICAL PNEUMOTHORAX. THESE FINDINGS HAVE BEEN FOLLOWED ON RECENT X-RAYS. Chest X-Ray 06/25/19 05:00 IMPRESSION: Stable small right apical pneumothorax. Stable right-sided chest tube. Endotracheal tube tip overlies midthoracic trachea, stable. Persistent dense left basilar consolidation, likely atelectasis. All labs, radiographs, diagnostic studies and EKGs were personally reviewed: Yes In addition, reports of radiographic and diagnostic studies were read: Yes Assessment and Plan - Diagnosis (1) Acute hypoxemic respiratory failure Is this a current diagnosis for this admission?: Yes Plan: Overall, improving but remains intubated due to altered mental status. Continue to hold Precedex. Due to delayed neurologic recovery, the patient will likely need tracheostomy. Continue tube feed: Will change vital to [facility] for its fiber content (Benefiber is apparently not available in this hospital). (2) MRSA pneumonia Qualifiers: Laterality: unspecified laterality Lung location: unspecified part of lung Qualified Code(s): J15.212 - Pneumonia due to Methicillin resistant Staphylococcus aureus Is this a current diagnosis for this admission?: Yes Plan: Continue linezolid. (3) Anoxic encephalopathy Is this a current diagnosis for this admission?: Yes Plan: Secondary to cardiac arrest and prolonged downtime. Frequent neurological examination. (4) Tension pneumothorax Is this a current diagnosis for this admission?: Yes Plan: Roll patient onto his left side. Chest tube to wall suction. Repeat chest x-ray in a.m. (5) Hyponatremia Is this a current diagnosis for this admission?: Yes Plan: Percent saline infusion site has been moved to his Port-A-Cath (for suspicion of peripheral edema caused by IV infiltration). Monitor serial sodiums. (6) Substance abuse Is this a current diagnosis for this admission?: Yes Critical Time Critical Time (minutes): 60 Level of Care: ICU -: 1. The care of a critical patient is a dynamic process. This note is a publications sales representative synopsis but static in nature. The timeframe for treatments given in order is not necessarily the actual time these treatments may have been done. 2. This patient requires critical care secondary to ongoing requirements for therapy not offered or safe outside the critical care environment. Transfer to a lower level of care will result in altered life or limb morbidity and mortality. 3. Multidisciplinary rounds completed. 4. ABCDE bundle addressed.
[2019-06-26] MEDS ORDERED: FENTANYL CITRATE INJ/PF 100 MCG/2 ML AMPUL IV PRN (15:12)
--- NOTE | 2019-06-26 15:12 | PDOC CRITICAL CARE PROG REPORT ---
General Date:: 06/26/19 ICU Day:: 12 Ventilator Day:: 12 Hospital Day:: 13 Resuscitation Status: Full Code Events in the past 12 to 24 Hours:: 06/15: Over the past 24 hours, patient has been status post arrest with tension pneumothorax most likely secondary to chest compressions. Chest tube was placed and tension pneumothorax was resolved. Patient was intubated at time of cardiac arrest and remains intubated on mechanical ventilation. He has a profound metabolic acidosis which is putting a greater demand on his respiratory condition. 06/16: No acute events over the past 24 hours. Patient has been weaned off of V ersed and is unfortunately still not responsive. Plan is to continue off of any sedation overnight and if no significant change in mental status, will obtain a head CT in the morning. 06/17: Patient is a little bit more responsive today, although still not alert. Hopeful that he could still make a strong neurologic recovery. His ventilator has been weaned to a pressure support of 16 to 20 cm H2O. Chest tube has minimal output and no air leak on suction. I will look to remove the chest tube today. 06/18: Patient has been tolerating spontaneous mode ventilation. Chest tube removed today. Small, less than 10% apical pneumo on chest x-ray. CT of head obtained to help determine cause of poor mental status. Results pending. 06/19: Pneumothorax increased in size throughout the course of the night. Chest tube was replaced and pneumothorax is resolving. CT of the head was negative for any pathology. Patient still remains awake but not alert, and unable to follow commands. Patient developed ST depressions overnight. Troponins have trended down throughout the day. Cardiology to be consulted. 06/20: Chest tube remains in place. Small apical pneumo on CXR. Patient continues to be awake but not alert and not following commands. ST depressions have improved. Patient appears to be comfortable, however he is tachypneic regardless of level of vent support and continues to have a respiratory alkalosis. 06/21: No change in mental status. Patient continues to have a combined metabolic acidosis with a respiratory alkalosis. MRSA in the sputum. 06/22: Reportedly started on Precedex due to tachypnea and acute respiratory alkalosis yesterday. Remains intubated. No vasopressor need. Right-sided chest tube in situ, under waterseal. No visible airleak. Modest serous drainage. On tube feed (vital 1.5 at 50 mL/h). Remains on 3% saline at 40 mL/h. Most recent sodium 125. No significant change in anoxic encephalopathy. Does open eyes, appears to be awake. 06/23: Off Precedex. No significant change in anoxic encephalopathy. Does open eyes spontaneously, but does not follow commands. Remains intubated. No vasopressor need. Right-sided chest tube in situ, under waterseal. No visible airleak, but repeat chest x-ray this a.m. shows no interval improvement. On tube feed (vital 1.5 at 50 mL/h). Remains on 3% saline at 40 mL/h. Most recent sodium 131. 06/24: CXR shows modest improvement in R pneumothorax after positioning patient L side down. Chest tube to wall suction. No significant change in neurologic status. Remains intubated. No vasopressor need. On TF. On 3% saline but with interval decrease in Na 128. Port-A-Cath has been accessed and found to be functioning. 06/25: Chest x-ray shows considerable improvement, now leaving only a "tiny" apical pneumothorax. No significant change in neurologic status. He remains intubated. Remains on 3% saline, serum sodium sodium 128. Review of systems relevant to events:: Neurologic: Encephalopathy Respiratory: Tension pneumothorax, endotracheal intubation, MRSA pneumonia Gastrointestinal: Diarrhea Reason for ICU Addmission:: status post cardiac arrest - Medications: Medications reviewed and adjusted accordingly: Yes Vasopressors:: None Sedation:: None Physical Exam Vital Signs: Temp Pulse Resp BP Pulse Ox 100.2 F 98 29 H 96/71 L 100 06/26/19 06:00 06/26/19 08:38 06/26/19 08:38 06/26/19 05:12 06/26/19 12:00 Intake & Output 06/25/19 06/26/19 06/27/19 06:59 06:59 06:59 Intake Total 1260 1120 230 Output Total 4691 2741 186 Balance -9293 -9474 -773 Weight 76.7 kg 71.4 kg Weight/Height Weight 71.4 kg Height 1.78 m General appearance: PRESENT: no acute distress, well-developed, well-nourished Head exam: PRESENT: atraumatic, normocephalic Eye exam: PRESENT: conjunctiva pink, EOMI, PERRLA. ABSENT: scleral icterus Mouth exam: PRESENT: moist, tongue midline Neck exam: ABSENT: carotid bruit, JVD, lymphadenopathy, thyromegaly Respiratory exam: PRESENT: clear to auscultation mindy. ABSENT: rales, rhonchi, wheezes Cardiovascular exam: PRESENT: RRR, tachycardia. ABSENT: diastolic murmur, rubs, systolic murmur Pulses: PRESENT: normal dorsalis pedis pul GI/Abdominal exam: PRESENT: normal bowel sounds, soft. ABSENT: distended, guarding, mass, organolmegaly, rebound, tenderness Extremities exam: PRESENT: full ROM, other - Left BKA. ABSENT: calf tenderness, clubbing, pedal edema Neurological exam: PRESENT: altered, awake, CN II-XII grossly intact Tubes/Lines: PRESENT: Endotracheal Tube, Chest Tube - Right, Arterial Catheter - Left femoral, Other - Orogastric Laboratory/Radiographs Laboratory Results: 06/24/19 03:09 06/26/19 08:40 06/25/19 06/25/19 06/26/19 14:32 21:39 02:38 Carbonic Acid HCO3/H2CO3 Ratio ABG pH ABG pCO2 ABG pO2 ABG HCO3 ABG O2 Saturation ABG Base Excess FiO2 Sodium 127.0 L 125.9 L 127.0 L Potassium 4.0 4.1 3.7 Chloride 98 96 L 99 Carbon Dioxide 22 23 23 Anion Gap 7 7 5 BUN 9 8 9 Creatinine 0.27 L 0.28 L 0.27 L Est GFR ( Amer) > 60 > 60 > 60 Glucose 100 93 133 H Serum Osmolality Calcium 7.6 L 7.8 L 7.7 L Phosphorus Magnesium Total Bilirubin 0.4 AST 60 H Alkaline Phosphatase 79 Total Protein 4.5 L Albumin 2.2 L TSH Urine Osmolality 06/26/19 06/26/19 06/26/19 02:38 02:38 08:40 Carbonic Acid HCO3/H2CO3 Ratio ABG pH ABG pCO2 ABG pO2 ABG HCO3 ABG O2 Saturation ABG Base Excess FiO2 Sodium 127.7 L Potassium 4.0 Chloride 100 Carbon Dioxide 21 L Anion Gap 7 BUN 9 Creatinine 0.26 L Est GFR ( Amer) > 60 Glucose 92 Serum Osmolality 266 L Calcium 7.5 L Phosphorus 4.5 Magnesium 2.0 Total Bilirubin AST Alkaline Phosphatase Total Protein Albumin TSH Urine Osmolality 662 05/07/20 05/07/20 08:40 09:09 Carbonic Acid 0.85 L HCO3/H2CO3 Ratio 25:1 ABG pH 7.50 H ABG pCO2 28.2 L ABG pO2 91.2 ABG HCO3 21.3 ABG O2 Saturation 97.6 ABG Base Excess -1.0 FiO2 30% Sodium Potassium Chloride Carbon Dioxide Anion Gap BUN Creatinine Est GFR ( Amer) Glucose Serum Osmolality Calcium Phosphorus Magnesium Total Bilirubin AST Alkaline Phosphatase Total Protein Albumin TSH 9.18 H Urine Osmolality 06/14/19 06/15/19 06/15/19 12:38 03:50 03:50 Creatine Kinase 222 H CK-MB (CK-2) 3.99 Troponin I < 0.012 0.036 NT-Pro-B Natriuret Pep 06/15/19 06/15/19 06/15/19 12:35 12:35 17:50 Creatine Kinase 590 H 610 H CK-MB (CK-2) 14.20 H Troponin I 0.048 NT-Pro-B Natriuret Pep 06/15/19 06/19/19 06/20/19 17:50 21:25 02:08 Creatine Kinase CK-MB (CK-2) 19.40 H Troponin I 0.025 0.470 0.402 NT-Pro-B Natriuret Pep 06/20/19 06/22/19 06/26/19 08:53 06:48 09:09 Creatine Kinase CK-MB (CK-2) Troponin I 0.244 0.077 NT-Pro-B Natriuret Pep 3140 H Impressions: Head CT 06/14/19 15:37 IMPRESSION: NORMAL BRAIN CT WITHOUT CONTRAST. EVIDENCE OF ACUTE STROKE: NO. Abdomen/Pelvis CT 06/14/19 19:43 IMPRESSION: No acute intra-abdominal process is identified. The bowel is nonobstructed. Remote postsurgical change. Dependent atelectasis. Moderate hiatal hernia. Imaging is degraded by patient motion, with resultant artifact. The best possible images were obtained.. Head CTA 06/19/19 17:38 IMPRESSION: NO OCCLUSION OF THE MAJOR INTRACRANIAL ARTERIAL VESSELS. THE MORE DISTAL BRANCHES OF THE LEFT MIDDLE CEREBRAL ARTERY ARE SOMEWHAT ATTENUATED COMPARED TO THE RIGHT. MAY BE ARTIFACT DUE TO CONTRAST BOLUS AND POSITIONING OF THE PATIENT'S HEAD BUT CANNOT EXCLUDE THE POSSIBILITY OF VASOSPASM. Neck CTA 06/19/19 17:43 IMPRESSION: 1. NORMAL CTA OF THE EXTRA-CRANIAL CAROTID AND VERTEBRAL ARTERIES. 2. LEFT PLEURAL EFFUSION. RIGHT APICAL PNEUMOTHORAX. THESE FINDINGS HAVE BEEN FOLLOWED ON RECENT X-RAYS. Chest X-Ray 06/26/19 05:00 IMPRESSION: 1. Improved right apical pneumothorax with a probable tiny apical pneumothorax remaining. 2. Otherwise no significant change. All labs, radiographs, diagnostic studies and EKGs were personally reviewed: Yes In addition, reports of radiographic and diagnostic studies were read: Yes Assessment and Plan - Diagnosis (1) Acute hypoxemic respiratory failure Is this a current diagnosis for this admission?: Yes Plan: Overall, improving but remains intubated due to altered mental status. Due to delayed neurologic recovery, the patient will likely need tracheostomy. Continue tube feed (Jevity). The patient is demonstrating primary respiratory alkalosis. Add morphine for sedation on mechanical ventilator. (2) MRSA pneumonia Qualifiers: Laterality: unspecified laterality Lung location: unspecified part of lung Qualified Code(s): J15.212 - Pneumonia due to Methicillin resistant Staphylococcus aureus Is this a current diagnosis for this admission?: Yes Plan: Continue linezolid. (3) Anoxic encephalopathy Is this a current diagnosis for this admission?: Yes Plan: Overall, no significant improvement in encephalopathy suspected to be secondary to cardiac arrest and prolonged downtime. Frequent neurological examination. (4) Tension pneumothorax Is this a current diagnosis for this admission?: Yes Plan: Improving. We will continue to roll patient onto his left side and place chest tube to wall suction. Repeat chest x-ray in a.m. (5) Hyponatremia Is this a current diagnosis for this admission?: Yes Plan: Stop 3% saline infusion. Check BNP, random cortisol, TSH. Monitor serial sodiums. (6) Substance abuse Is this a current diagnosis for this admission?: Yes Critical Time Critical Time (minutes): 60 Level of Care: ICU -: 1. The care of a critical patient is a dynamic process. This note is a physician relations representative synopsis but static in nature. The timeframe for treatments given in order is not necessarily the actual time these treatments may have been done. 2. This patient requires critical care secondary to ongoing requirements for therapy not offered or safe outside the critical care environment. Transfer to a lower level of care will result in altered life or limb morbidity and mortality. 3. Multidisciplinary rounds completed. 4. ABCDE bundle addressed.
[2019-06-26 16:00] LABS: ANION GAP 5 (5-19); BLOOD UREA NITROGEN 11 mg/dL (7-20); CALCIUM 7.8 mg/dL (8.4-10.2); CARBON DIOXIDE 23 mmol/L (22-30); CHLORIDE 96 mmol/L (98-107); GLUCOSE 102 mg/dL (75-110); POTASSIUM 3.9 mmol/L (3.6-5.0)
[2019-06-26 20:29] LABS: ANION GAP 6 (5-19); BLOOD UREA NITROGEN 12 mg/dL (7-20); CALCIUM 7.8 mg/dL (8.4-10.2); CARBON DIOXIDE 23 mmol/L (22-30); CHLORIDE 95 mmol/L (98-107); GLUCOSE 120 mg/dL (75-110)
[2019-06-26] MEDS: HYDROCORTISONE SOD SUCCINATE INJ/PF 100 MG/2 ML SDV IV SCH (21:37)
[2019-06-26] MEDS: FAMOTIDINE INJ/PF 20 MG/2 ML SDV IV SCH (21:38)
[2019-06-26] MEDS: FENTANYL CITRATE INJ/PF 100 MCG/2 ML AMPUL IV PRN (22:30)
[2019-06-27] MEDS: IPRATROPIUM/ALBUTEROL 0.5-2.5 MG/3 ML AMPUL NEB SCH ×3 (00:29→15:53)
[2019-06-27 02:19] LABS: ANION GAP 7 (5-19); BLOOD UREA NITROGEN 13 mg/dL (7-20); CALCIUM 7.8 mg/dL (8.4-10.2); CARBON DIOXIDE 22 mmol/L (22-30); CHLORIDE 96 mmol/L (98-107); GLUCOSE 151 mg/dL (75-110)
[2019-06-27] MEDS: HEPARIN SOD (PORCINE) 5,000 UNIT/ML 1 ML VIAL SUBCUT SCH ×3 (05:26→21:08)
[2019-06-27] MEDS: HYDROCORTISONE SOD SUCCINATE INJ/PF 100 MG/2 ML SDV IV SCH ×3 (05:26→21:07)
[2019-06-27] MEDS: POLYMYXIN B SULFATE/TMP OPH SOLN 10 ML OU SCH ×4 (05:26→23:15)
[2019-06-27] MEDS: SODIUM CHLORIDE 1 GM TABLET NG SCH ×3 (05:26→18:25)
[2019-06-27] MEDS: AZTREONAM 2 GM in DEXTROSE 5%-WATER 100 ML IV SCH ×3 (05:26→18:24)
[2019-06-27 06:19] LABS: ANION GAP 8 (5-19); BLOOD UREA NITROGEN 13 mg/dL (7-20); CALCIUM 7.8 mg/dL (8.4-10.2); CARBON DIOXIDE 21 mmol/L (22-30); CHLORIDE 96 mmol/L (98-107); GLUCOSE 167 mg/dL (75-110)
--- NOTE | 2019-06-27 08:47 | RADIOLOGY REPORT (SQ) ---
EXAM DESCRIPTION: CHEST SINGLE VIEW IMAGES COMPLETED DATE/TIME: 06/27/2019 8:36 am REASON FOR STUDY: R pneumothorax COMPARISON: 06/26/2019 EXAM PARAMETERS: NUMBER OF VIEWS: One view. TECHNIQUE: Single frontal radiographic view of the chest acquired. RADIATION DOSE: NA LIMITATIONS: None. FINDINGS: LUNGS AND PLEURA: Right-sided chest tube is in place. No evidence of pneumothorax on the current film. Persistent left retrocardiac airspace disease. NG tube remains in place. MEDIASTINUM AND HILAR STRUCTURES: No masses. Contour normal. HEART AND VASCULAR STRUCTURES: Heart normal in size. Normal vasculature. BONES: No acute findings. HARDWARE: [id number] remains in place. The catheter is looped on itself with the tip overlying th e subclavian vein at approximately the mid clavicular line. OTHER: No other significant finding. IMPRESSION: No pneumothorax on today's study right-sided chest tube remains in place. Persistent le ft retrocardiac airspace disease. TECHNICAL DOCUMENTATION: JOB ID: [id number] 2010 [employer]- All Rights Reserved Reading location - IP/workstation name: [email or web address]
[2019-06-27 09:33] LABS: ARTERIAL BLOOD BASE EXCESS 0.1 mmol/L; ARTERIAL BLOOD H2CO3 0.79 mmol/L (1.05-1.35); ARTERIAL BLOOD HCO3 21.5 mmol/L (20-24); ARTERIAL BLOOD O2 SATURATION 97.8 % (94-98); ARTERIAL BLOOD PCO2 26.1 mmHg (35-45); ARTERIAL BLOOD PH 7.53 (7.35-7.45); ARTERIAL BLOOD PO2 90.8 mmHg (80-100); ARTERIAL BLOOD TOTAL CO2 22.3 mmol/L (23-27)
[2019-06-27 09:34] LABS: ARTERIAL BLOOD FIO2 30%
[2019-06-27 10:47] LABS: ANION GAP 9 (5-19); BLOOD UREA NITROGEN 13 mg/dL (7-20); CARBON DIOXIDE 22 mmol/L (22-30); CHLORIDE 95 mmol/L (98-107); GLUCOSE 171 mg/dL (75-110)
[2019-06-27] MEDS: FAMOTIDINE INJ/PF 20 MG/2 ML SDV IV SCH ×2 (10:49→21:08)
[2019-06-27] MEDS: AMINO AC/PROTEIN HYDR/WHEY PRO 11 GM/45 ML PKT NG SCH ×2 (10:49→18:24)
[2019-06-27] MEDS ORDERED: FUROSEMIDE INJ/PF 40 MG/4 ML SDV IV ONE (12:00)
[2019-06-27] MEDS ORDERED: GLUCAGON,HUMAN RECOMB 1 MG INJ IM PRN (13:00)
[2019-06-27] MEDS ORDERED: DEXTROSE 40% GEL 15 GM TUBE PO PRN (13:00)
[2019-06-27] MEDS ORDERED: DEXTROSE 50%-WATER SYRINGE 25 GM/50 ML DOSE IV PRN (13:00)
[2019-06-27] MEDS ORDERED: DEXTROSE 50%-WATER SYRINGE 12.5 GM/25 ML DOSE IV PRN (13:00)
[2019-06-27] MEDS ORDERED: DEXTROSE 40% GEL 15 GM TUBE X 2 PO PRN (13:00)
[2019-06-27] MEDS ORDERED: INSULIN REG, HUMAN 100 UNIT/ML 3 ML VIAL (PYX) SUBCUT SCH (13:00)
[2019-06-27 16:40] LABS: ANION GAP 7 (5-19); BLOOD UREA NITROGEN 15 mg/dL (7-20); CARBON DIOXIDE 24 mmol/L (22-30); CHLORIDE 95 mmol/L (98-107); GLUCOSE 137 mg/dL (75-110); POTASSIUM 4.3 mmol/L (3.6-5.0)
[2019-06-27] MEDS: FENTANYL CITRATE INJ/PF 100 MCG/2 ML AMPUL IV PRN (20:29)
[2019-06-27 22:21] LABS: FREE T3 3.37 pg/mL (2.77-5.27); FREE T4 (FREE THYROXINE) 1.02 ng/dL (0.78-2.19)
[2019-06-27 22:51] LABS: ANION GAP 8 (5-19); BLOOD UREA NITROGEN 20 mg/dL (7-20); CALCIUM 7.9 mg/dL (8.4-10.2); CARBON DIOXIDE 22 mmol/L (22-30); CHLORIDE 97 mmol/L (98-107); GLUCOSE 194 mg/dL (75-110)
[2019-06-28] MEDS: IPRATROPIUM/ALBUTEROL 0.5-2.5 MG/3 ML AMPUL NEB SCH ×3 (00:47→16:56)
--- NOTE | 2019-06-28 01:31 | RADIOLOGY REPORT (SQ) ---
CHEST 1 VIEW on 06/28/2019 at 12:52 AM CLINICAL INDICATION: Pneumothorax COMPARISON: 06/27/2019 FINDINGS: ET tube tip is in the mid thoracic trachea. Right subclavian Port-A-Cath is again curled in the region of the right brachiocephalic vein with its tip pointed distally to the right within the right subclavian. Right chest tube is unchanged in position. Multiple wires are noted projecting over the chest. No definite right pneumothorax is noted. There is continued left lower lung opacity consistent with atelectasis and/or pneumonia. IMPRESSION: No significant change in the appearance of the chest.
[2019-06-28] MEDS: AZTREONAM 2 GM in DEXTROSE 5%-WATER 100 ML IV SCH ×5 (01:39→23:08)
[2019-06-28] MEDS: SODIUM CHLORIDE 1 GM TABLET NG SCH ×3 (01:39→11:54)
[2019-06-28 04:09] LABS: ABSOLUTE LYMPHOCYTES (AUTO) 1.1 10^3/uL (0.5-4.7); ABSOLUTE MONOCYTES (AUTO) 0.9 10^3/uL (0.1-1.4); ABSOLUTE NEUT (AUTO) 9.6 10^3/uL (1.7-8.2); BASOPHILS % (AUTO) 0.1 % (0-2); HEMATOCRIT 29.5 % (37.9-51.0); HEMOGLOBIN 10.8 g/dL (13.5-17.0); LYMPHOCYTES % (AUTO) 9.4 % (13-45); MEAN CORPUSCULAR HEMOGLOBIN 30.3 pg (27.0-33.4); MEAN CORPUSCULAR HGB CONC 36.5 g/dL (32.0-36.0); MEAN CORPUSCULAR VOLUME 83 fl (80-97); MONOCYTES % (AUTO) 7.5 % (3-13); PLATELET COUNT 573 10^3/uL (150-450); RED BLOOD COUNT 3.55 10^6/uL (4.35-5.55); TOTAL CELLS COUNTED % (AUTO) 100 %; WHITE BLOOD COUNT 11.5 10^3/uL (4.0-10.5)
[2019-06-28 04:22] LABS: ANION GAP 7 (5-19); BLOOD UREA NITROGEN 17 mg/dL (7-20); CALCIUM 7.9 mg/dL (8.4-10.2); CARBON DIOXIDE 25 mmol/L (22-30); CHLORIDE 99 mmol/L (98-107); GLUCOSE 156 mg/dL (75-110); POTASSIUM 3.9 mmol/L (3.6-5.0)
[2019-06-28] MEDS: POLYMYXIN B SULFATE/TMP OPH SOLN 10 ML OU SCH ×3 (06:20→18:31)
[2019-06-28] MEDS: HYDROCORTISONE SOD SUCCINATE INJ/PF 100 MG/2 ML SDV IV SCH ×3 (06:21→22:39)
[2019-06-28] MEDS: HEPARIN SOD (PORCINE) 5,000 UNIT/ML 1 ML VIAL SUBCUT SCH ×3 (06:38→21:31)
--- NOTE | 2019-06-28 07:14 | RADIOLOGY REPORT (SQ) ---
EXAM DESCRIPTION: XR CHEST 1 VIEW COMPLETED DATE/TME: 06/28/2019 06:00 CLINICAL HISTORY: 53 years Male, pneumothorax COMPARISON: Same day. NUMBER OF VIEWS/TECHNIQUE: 1/AP FINDINGS: Moderate left lower lobar/retrocardiac opacity.Normal cardiac silhouette size. No pneumothorax. Stable bony thorax.Adequate appearing endotracheal tube. Adequate appearing enteric tube partially obscured. Right subclavian miniport catheter tip at the lateral right subclavian vein looping back at the proximal right subclavian vein; consider replacement. Right chest tube. IMPRESSION: No significant change.Right subclavian miniport catheter tip at the lateral right subclavian vein looping back at the proximal right subclavian vein; consider replacement.
[2019-06-28 07:17] LABS: ARTERIAL BLOOD BASE EXCESS 2.1 mmol/L; ARTERIAL BLOOD H2CO3 0.91 mmol/L (1.05-1.35); ARTERIAL BLOOD HCO3 24.2 mmol/L (20-24); ARTERIAL BLOOD O2 SATURATION 97.8 % (94-98); ARTERIAL BLOOD PCO2 30.2 mmHg (35-45); ARTERIAL BLOOD PH 7.52 (7.35-7.45); ARTERIAL BLOOD PO2 92.8 mmHg (80-100); ARTERIAL BLOOD TOTAL CO2 25.1 mmol/L (23-27)
[2019-06-28 07:18] LABS: ARTERIAL BLOOD FIO2 30%
--- NOTE | 2019-06-28 07:23 | PDOC CRITICAL CARE PROG REPORT ---
General Date:: 06/27/19 ICU Day:: 13 Ventilator Day:: 13 Hospital Day:: 14 Resuscitation Status: Full Code Events in the past 12 to 24 Hours:: 06/15: Over the past 24 hours, patient has been status post arrest with tension pneumothorax most likely secondary to chest compressions. Chest tube was placed and tension pneumothorax was resolved. Patient was intubated at time of cardiac arrest and remains intubated on mechanical ventilation. He has a profound metabolic acidosis which is putting a greater demand on his respiratory condition. 06/16: No acute events over the past 24 hours. Patient has been weaned off of V ersed and is unfortunately still not responsive. Plan is to continue off of any sedation overnight and if no significant change in mental status, will obtain a head CT in the morning. 06/17: Patient is a little bit more responsive today, although still not alert. Hopeful that he could still make a strong neurologic recovery. His ventilator has been weaned to a pressure support of 16 to 20 cm H2O. Chest tube has minimal output and no air leak on suction. I will look to remove the chest tube today. 06/18: Patient has been tolerating spontaneous mode ventilation. Chest tube removed today. Small, less than 10% apical pneumo on chest x-ray. CT of head obtained to help determine cause of poor mental status. Results pending. 06/19: Pneumothorax increased in size throughout the course of the night. Chest tube was replaced and pneumothorax is resolving. CT of the head was negative for any pathology. Patient still remains awake but not alert, and unable to follow commands. Patient developed ST depressions overnight. Troponins have trended down throughout the day. Cardiology to be consulted. 06/20: Chest tube remains in place. Small apical pneumo on CXR. Patient continues to be awake but not alert and not following commands. ST depressions have improved. Patient appears to be comfortable, however he is tachypneic regardless of level of vent support and continues to have a respiratory alkalosis. 06/21: No change in mental status. Patient continues to have a combined metabolic acidosis with a respiratory alkalosis. MRSA in the sputum. 06/22: Reportedly started on Precedex due to tachypnea and acute respiratory alkalosis yesterday. Remains intubated. No vasopressor need. Right-sided chest tube in situ, under waterseal. No visible airleak. Modest serous drainage. On tube feed (vital 1.5 at 50 mL/h). Remains on 3% saline at 40 mL/h. Most recent sodium 125. No significant change in anoxic encephalopathy. Does open eyes, appears to be awake. 06/23: Off Precedex. No significant change in anoxic encephalopathy. Does open eyes spontaneously, but does not follow commands. Remains intubated. No vasopressor need. Right-sided chest tube in situ, under waterseal. No visible airleak, but repeat chest x-ray this a.m. shows no interval improvement. On tube feed (vital 1.5 at 50 mL/h). Remains on 3% saline at 40 mL/h. Most recent sodium 131. 06/24: CXR shows modest improvement in R pneumothorax after positioning patient L side down. Chest tube to wall suction. No significant change in neurologic status. Remains intubated. No vasopressor need. On TF. On 3% saline but with interval decrease in Na 128. Port-A-Cath has been accessed and found to be functioning. 06/25: Chest x-ray shows considerable improvement, now leaving only a "tiny" apical pneumothorax. No significant change in neurologic status. He remains intubated. Remains on 3% saline, serum sodium sodium 128. 06/26: Chest x-ray this morning suggest complete reexpansion of the right lung. However, there is an air leak detected with the chest tube currently under waterseal. No significant change in neurologic status. He remains intubated. Demonstrates hyperventilation with acute respiratory alkalosis. Intermittent fentanyl has been started for sedation. Off 3% saline. Sodium 125 (up from 124). In the interim, the patient has been found to have an elevated proBNP, abnormally low random cortisol level and elevated TSH. He was started on Solu- Cortef 100 mg IV every 8 hours overnight shift (has received 1 dose). Review of systems relevant to events:: Neurologic: Encephalopathy Respiratory: Tension pneumothorax, endotracheal intubation, MRSA pneumonia Gastrointestinal: Diarrhea Reason for ICU Addmission:: status post cardiac arrest - Medications: Medications reviewed and adjusted accordingly: Yes Vasopressors:: None Sedation:: Fentanyl Physical Exam Vital Signs: Temp Pulse Resp BP Pulse Ox 99.7 F 103 H 22 H 98/63 L 96 06/27/19 06:21 06/27/19 00:30 06/27/19 06:21 06/27/19 06:21 06/27/19 06:21 Intake & Output 06/26/19 06/27/19 06/28/19 06:59 06:59 06:59 Intake Total 1120 990 Output Total 3426 1610 265 Balance -2305 -1540 -265 Weight 71.4 kg 72.2 kg Weight/Height Weight 72.2 kg Height 1.78 m General appearance: PRESENT: no acute distress, thin Head exam: PRESENT: atraumatic, normocephalic Respiratory exam: PRESENT: crackles, tachypnea. ABSENT: wheezes Cardiovascular exam: PRESENT: RRR, tachycardia. ABSENT: gallop, rubs, systolic murmur GI/Abdominal exam: PRESENT: normal bowel sounds, soft. ABSENT: distended, guarding, mass, organolmegaly, rebound, tenderness Extremities exam: PRESENT: pedal edema, +1 edema. ABSENT: clubbing Tubes/Lines: PRESENT: Endotracheal Tube, Chest Tube - R, Arterial Catheter - L femoral, Other - OGT Laboratory/Radiographs Laboratory Results: 06/24/19 03:09 06/27/19 09:15 06/26/19 06/26/19 06/26/19 08:40 15:22 20:00 Carbonic Acid HCO3/H2CO3 Ratio ABG pH ABG pCO2 ABG pO2 ABG HCO3 ABG O2 Saturation ABG Base Excess FiO2 Sodium 124.0 L 123.9 L Potassium 3.9 4.0 Chloride 96 L 95 L Carbon Dioxide 23 23 Anion Gap 5 6 BUN 11 12 Creatinine 0.28 L 0.32 L Est GFR ( Amer) > 60 > 60 Glucose 102 120 H Calcium 7.8 L 7.8 L TSH 9.18 H Free T4 Thyroxine (T4) 06/27/19 06/27/19 06/27/19 01:50 05:53 09:15 Carbonic Acid HCO3/H2CO3 Ratio ABG pH ABG pCO2 ABG pO2 ABG HCO3 ABG O2 Saturation ABG Base Excess FiO2 Sodium 124.6 L 125.3 L 125.6 L Potassium 4.0 4.0 4.0 Chloride 96 L 96 L 95 L Carbon Dioxide 22 21 L 22 Anion Gap 7 8 9 BUN 13 13 13 Creatinine 0.27 L 0.26 L 0.25 L Est GFR ( Amer) > 60 > 60 > 60 Glucose 151 H 167 H 171 H Calcium 7.8 L 7.8 L 8.0 L TSH Free T4 Thyroxine (T4) 06/27/19 06/27/19 06/27/19 09:15 09:15 09:15 Carbonic Acid 0.79 L HCO3/H2CO3 Ratio 27:1 ABG pH 7.53 H ABG pCO2 26.1 L ABG pO2 90.8 ABG HCO3 21.5 ABG O2 Saturation 97.8 ABG Base Excess 0.1 FiO2 30% Sodium Potassium Chloride Carbon Dioxide Anion Gap BUN Creatinine Est GFR ( Amer) Glucose Calcium TSH Free T4 0.88 Thyroxine (T4) 7.64 06/22/19 07:19 Blood Blood Culture - Final NO GROWTH IN 5 DAYS 06/22/19 06:48 Blood Blood Culture - Final NO GROWTH IN 5 DAYS 06/14/19 06/15/19 06/15/19 12:38 03:50 03:50 Creatine Kinase 222 H CK-MB (CK-2) 3.99 Troponin I < 0.012 0.036 NT-Pro-B Natriuret Pep 06/15/19 06/15/19 06/15/19 12:35 12:35 17:50 Creatine Kinase 590 H 610 H CK-MB (CK-2) 14.20 H Troponin I 0.048 NT-Pro-B Natriuret Pep 06/15/19 06/19/19 06/20/19 17:50 21:25 02:08 Creatine Kinase CK-MB (CK-2) 19.40 H Troponin I 0.025 0.470 0.402 NT-Pro-B Natriuret Pep 06/20/19 06/22/19 06/26/19 08:53 06:48 09:09 Creatine Kinase CK-MB (CK-2) Troponin I 0.244 0.077 NT-Pro-B Natriuret Pep 3140 H Impressions: Head CT 06/14/19 15:37 IMPRESSION: NORMAL BRAIN CT WITHOUT CONTRAST. EVIDENCE OF ACUTE STROKE: NO. Abdomen/Pelvis CT 06/14/19 19:43 IMPRESSION: No acute intra-abdominal process is identified. The bowel is nonobstructed. Remote postsurgical change. Dependent atelectasis. Moderate hiatal hernia. Imaging is degraded by patient motion, with resultant artifact. The best possible images were obtained.. Head CTA 06/19/19 17:38 IMPRESSION: NO OCCLUSION OF THE MAJOR INTRACRANIAL ARTERIAL VESSELS. THE MORE DISTAL BRANCHES OF THE LEFT MIDDLE CEREBRAL ARTERY ARE SOMEWHAT ATTENUATED COMPARED TO THE RIGHT. MAY BE ARTIFACT DUE TO CONTRAST BOLUS AND POSITIONING OF THE PATIENT'S HEAD BUT CANNOT EXCLUDE THE POSSIBILITY OF VASOSPASM. Neck CTA 06/19/19 17:43 IMPRESSION: 1. NORMAL CTA OF THE EXTRA-CRANIAL CAROTID AND VERTEBRAL ARTERIES. 2. LEFT PLEURAL EFFUSION. RIGHT APICAL PNEUMOTHORAX. THESE FINDINGS HAVE BEEN FOLLOWED ON RECENT X-RAYS. Chest X-Ray 06/27/19 07:53 IMPRESSION: No pneumothorax on today's study right-sided chest tube remains in place. Persistent left retrocardiac airspace disease. All labs, radiographs, diagnostic studies and EKGs were personally reviewed: Yes In addition, reports of radiographic and diagnostic studies were read: Yes Assessment and Plan - Diagnosis (1) Acute hypoxemic respiratory failure Is this a current diagnosis for this admission?: Yes Plan: Overall, improving but remains intubated due to altered mental status. Due to delayed neurologic recovery, the patient will likely need tracheostomy. Continue tube feed (Jevity). ABG in a.m. I did update the patient's mother (Danni Nichole, ) about the patient's status. I have asked her to consider goals of care and directives, particularly with respect to potential sequela of extubation. It appears that the patient demonstrates respiratory mechanics satisfactory to consider a trial extubation. On the other hand, his encephalopathy appears to left him with a diminished gag and cough reflex. Proceeding directly to tracheostomy may be an acceptable course of action may ultimately proved to be the most direct path to liberation from mechanical ventilatory support. (2) MRSA pneumonia Qualifiers: Laterality: unspecified laterality Lung location: unspecified part of lung Qualified Code(s): J15.212 - Pneumonia due to Methicillin resistant S taphylococcus aureus Is this a current diagnosis for this admission?: Yes Plan: Continue linezolid. (3) Anoxic encephalopathy Is this a current diagnosis for this admission?: Yes Plan: Overall, no significant improvement in encephalopathy suspected to be secondary to cardiac arrest and prolonged downtime. Frequent neurological examination. (4) Tension pneumothorax Is this a current diagnosis for this admission?: Yes Plan: Chest x-ray today finally suggests complete reexpansion of the right lung. Maintain chest tube under waterseal today until midnight. Chest x-ray at midnight. If the midnight chest x-ray demonstrates continued reexpansion, I would consider clamping the chest tube for up to 6 hours. (5) Hyponatremia Is this a current diagnosis for this admission?: Yes Plan: Started on Solu-Cortef 100 mg IV every 8 in the interim for presumed adrenal insufficiency (random cortisol 0.54 mcg/dL @ 06/26/2027 08:40. In light of elevated proBNP and probable volume overload, test dose of furosemide 20 mg IV. Check T4, free T4. (6) Substance abuse Is this a current diagnosis for this admission?: Yes Critical Time Critical Time (minutes): 60 Level of Care: ICU -: 1. The care of a critical patient is a dynamic process. This note is a school admissions representative synopsis but static in nature. The timeframe for treatments given in order is not necessarily the actual time these treatments may have been done. 2. This patient requires critical care secondary to ongoing requirements for therapy not offered or safe outside the critical care environment. Transfer to a lower level of care will result in altered life or limb morbidity and mortality. 3. Multidisciplinary rounds completed. 4. ABCDE bundle addressed.
[2019-06-28] MEDS: FAMOTIDINE INJ/PF 20 MG/2 ML SDV IV SCH ×2 (10:02→21:31)
[2019-06-28] MEDS: AMINO AC/PROTEIN HYDR/WHEY PRO 11 GM/45 ML PKT NG SCH ×2 (10:02→18:31)
[2019-06-28] MEDS ORDERED: FUROSEMIDE INJ/PF 40 MG/4 ML SDV IV ONE (14:30)
[2019-06-28 14:46] LABS: ARTERIAL BLOOD BASE EXCESS 1.6 mmol/L; ARTERIAL BLOOD HCO3 23.9 mmol/L (20-24); ARTERIAL BLOOD O2 SATURATION 98.6 % (94-98); ARTERIAL BLOOD PCO2 29.8 mmHg (35-45); ARTERIAL BLOOD PH 7.52 (7.35-7.45); ARTERIAL BLOOD PO2 113.9 mmHg (80-100); ARTERIAL BLOOD TOTAL CO2 24.8 mmol/L (23-27)
[2019-06-28 14:47] LABS: ARTERIAL BLOOD FIO2 30%
[2019-06-28 15:04] LABS: ANION GAP 5 (5-19); BLOOD UREA NITROGEN 16 mg/dL (7-20); CALCIUM 8.1 mg/dL (8.4-10.2); CARBON DIOXIDE 26 mmol/L (22-30); CHLORIDE 102 mmol/L (98-107); GLUCOSE 136 mg/dL (75-110); POTASSIUM 3.6 mmol/L (3.6-5.0)
--- NOTE | 2019-06-28 17:57 | PDOC CRITICAL CARE PROG REPORT ---
General Date:: 06/28/19 ICU Day:: 14 Ventilator Day:: 14 Hospital Day:: 15 Resuscitation Status: Full Code Events in the past 12 to 24 Hours:: 06/15: Over the past 24 hours, patient has been status post arrest with tension pneumothorax most likely secondary to chest compressions. Chest tube was placed and tension pneumothorax was resolved. Patient was intubated at time of cardiac arrest and remains intubated on mechanical ventilation. He has a profound metabolic acidosis which is putting a greater demand on his respiratory condition. 06/16: No acute events over the past 24 hours. Patient has been weaned off of V ersed and is unfortunately still not responsive. Plan is to continue off of any sedation overnight and if no significant change in mental status, will obtain a head CT in the morning. 06/17: Patient is a little bit more responsive today, although still not alert. Hopeful that he could still make a strong neurologic recovery. His ventilator has been weaned to a pressure support of 16 to 20 cm H2O. Chest tube has minimal output and no air leak on suction. I will look to remove the chest tube today. 06/18: Patient has been tolerating spontaneous mode ventilation. Chest tube removed today. Small, less than 10% apical pneumo on chest x-ray. CT of head obtained to help determine cause of poor mental status. Results pending. 06/19: Pneumothorax increased in size throughout the course of the night. Chest tube was replaced and pneumothorax is resolving. CT of the head was negative for any pathology. Patient still remains awake but not alert, and unable to follow commands. Patient developed ST depressions overnight. Troponins have trended down throughout the day. Cardiology to be consulted. 06/20: Chest tube remains in place. Small apical pneumo on CXR. Patient continues to be awake but not alert and not following commands. ST depressions have improved. Patient appears to be comfortable, however he is tachypneic regardless of level of vent support and continues to have a respiratory alkalosis. 06/21: No change in mental status. Patient continues to have a combined metabolic acidosis with a respiratory alkalosis. MRSA in the sputum. 06/22: Reportedly started on Precedex due to tachypnea and acute respiratory alkalosis yesterday. Remains intubated. No vasopressor need. Right-sided chest tube in situ, under waterseal. No visible airleak. Modest serous drainage. On tube feed (vital 1.5 at 50 mL/h). Remains on 3% saline at 40 mL/h. Most recent sodium 125. No significant change in anoxic encephalopathy. Does open eyes, appears to be awake. 06/23: Off Precedex. No significant change in anoxic encephalopathy. Does open eyes spontaneously, but does not follow commands. Remains intubated. No vasopressor need. Right-sided chest tube in situ, under waterseal. No visible airleak, but repeat chest x-ray this a.m. shows no interval improvement. On tube feed (vital 1.5 at 50 mL/h). Remains on 3% saline at 40 mL/h. Most recent sodium 131. 06/24: CXR shows modest improvement in R pneumothorax after positioning patient L side down. Chest tube to wall suction. No significant change in neurologic status. Remains intubated. No vasopressor need. On TF. On 3% saline but with interval decrease in Na 128. Port-A-Cath has been accessed and found to be functioning. 06/25: Chest x-ray shows considerable improvement, now leaving only a "tiny" apical pneumothorax. No significant change in neurologic status. He remains intubated. Remains on 3% saline, serum sodium sodium 128. 06/26: Chest x-ray this morning suggest complete reexpansion of the right lung. However, there is an air leak detected with the chest tube currently under waterseal. No significant change in neurologic status. He remains intubated. Demonstrates hyperventilation with acute respiratory alkalosis. Intermittent fentanyl has been started for sedation. Off 3% saline. Sodium 125 (up from 124). In the interim, the patient has been found to have an elevated proBNP, abnormally low random cortisol level and elevated TSH. He was started on Solu- Cortef 100 mg IV every 8 hours overnight shift (has received 1 dose). 06/27: Chest x-ray this morning demonstrates complete reexpansion of the right lung even after 6 hours under stress (clamped). No air leak. No significant change in neuro status. He remains intubated. Continues to demonstrate hyperventilation with ABG pH 7.5, PCO2 30. Na 125>131 today after a dose of Lasix yesterday. proBNP 4410. Review of systems relevant to events:: Neurologic: Encephalopathy Respiratory: Tension pneumothorax, endotracheal intubation, MRSA pneumonia Gastrointestinal: Diarrhea Reason for ICU Addmission:: status post cardiac arrest - Medications: Medications reviewed and adjusted accordingly: Yes Physical Exam Vital Signs: Temp Pulse Resp BP Pulse Ox 99.5 F 94 16 119/81 97 06/28/19 06:21 06/28/19 08:24 06/28/19 08:24 06/28/19 06:21 06/28/19 08:24 Intake & Output 06/27/19 06/28/19 06/29/19 06:59 06:59 06:59 Intake Total 990 60 Output Total 2530 2170 285 Balance -1540 -0 -285 Weight 72.2 kg 69.2 kg Weight/Height Weight 69.2 kg Height 1.78 m General appearance: PRESENT: no acute distress, well-developed, well-nourished Eye exam: PRESENT: conjunctiva pink, EOMI, PERRLA. ABSENT: scleral icterus Mouth exam: PRESENT: moist, tongue midline Respiratory exam: PRESENT: rales, other - Pseudoarthrosis in the right lower anterior chest (secondary to fractured ribs). ABSENT: rhonchi, wheezes Cardiovascular exam: PRESENT: RRR. ABSENT: diastolic murmur, rubs, systolic murmur Pulses: PRESENT: normal dorsalis pedis pul GI/Abdominal exam: PRESENT: normal bowel sounds, soft. ABSENT: distended, guarding, mass, organolmegaly, rebound, tenderness Extremities exam: PRESENT: full ROM, pedal edema. ABSENT: calf tenderness, clubbing Neurological exam: PRESENT: altered, CN II-XII grossly intact, other - Right Babinski. Left BKA. TRS: 2+ at bilateral biceps tendons. 1+ at right patellar tendon.. ABSENT: motor sensory deficit Skin exam: PRESENT: dry, intact, warm. ABSENT: cyanosis, rash Tubes/Lines: PRESENT: Endotracheal Tube, Chest Tube - R, Arterial Catheter - Left femoral, Other - Orogastric. Right Port-A-Cath Laboratory/Radiographs Laboratory Results: 06/28/19 03:55 06/28/19 03:55 06/27/19 06/27/19 06/27/19 15:45 15:45 22:14 WBC RBC Hgb Hct MCV MCH MCHC RDW Plt Count Seg Neutrophils % Carbonic Acid HCO3/H2CO3 Ratio ABG pH ABG pCO2 ABG pO2 ABG HCO3 ABG O2 Saturation ABG Base Excess FiO2 Sodium 125.6 L 127.1 L Potassium 4.3 4.0 Chloride 95 L 97 L Carbon Dioxide 24 22 Anion Gap 7 8 BUN 15 20 Creatinine 0.28 L 0.35 L Est GFR ( Amer) > 60 > 60 Glucose 137 H 194 H Calcium 8.0 L 7.9 L Magnesium Free T4 1.02 Free T3 pg/mL 3.37 06/28/19 06/28/19 06/28/19 03:55 03:55 07:00 WBC 11.5 H RBC 3.55 L Hgb 10.8 L Hct 29.5 L MCV 83 MCH 30.3 MCHC 36.5 H RDW 16.0 H Plt Count 573 H Seg Neutrophils % 83.0 H Carbonic Acid 0.91 L HCO3/H2CO3 Ratio 26:1 ABG pH 7.52 H ABG pCO2 30.2 L ABG pO2 92.8 ABG HCO3 24.2 H ABG O2 Saturation 97.8 ABG Base Excess 2.1 FiO2 30% Sodium 131.2 L Potassium 3.9 Chloride 99 Carbon Dioxide 25 Anion Gap 7 BUN 17 Creatinine 0.32 L Est GFR ( Amer) > 60 Glucose 156 H Calcium 7.9 L Magnesium 2.3 Free T4 Free T3 pg/mL 06/14/19 06/15/19 06/15/19 12:38 03:50 03:50 Creatine Kinase 222 H CK-MB (CK-2) 3.99 Troponin I < 0.012 0.036 NT-Pro-B Natriuret Pep 06/15/19 06/15/19 06/15/19 12:35 12:35 17:50 Creatine Kinase 590 H 610 H CK-MB (CK-2) 14.20 H Troponin I 0.048 NT-Pro-B Natriuret Pep 06/15/19 06/19/19 06/20/19 17:50 21:25 02:08 Creatine Kinase CK-MB (CK-2) 19.40 H Troponin I 0.025 0.470 0.402 NT-Pro-B Natriuret Pep 06/20/19 06/22/19 06/26/19 08:53 06:48 09:09 Creatine Kinase CK-MB (CK-2) Troponin I 0.244 0.077 NT-Pro-B Natriuret Pep 3140 H 06/28/19 03:55 Creatine Kinase CK-MB (CK-2) Troponin I NT-Pro-B Natriuret Pep 4410 H Impressions: Head CT 06/14/19 15:37 IMPRESSION: NORMAL BRAIN CT WITHOUT CONTRAST. EVIDENCE OF ACUTE STROKE: NO. Abdomen/Pelvis CT 06/14/19 19:43 IMPRESSION: No acute intra-abdominal process is identified. The bowel is nonobstructed. Remote postsurgical change. Dependent atelectasis. Moderate hiatal hernia. Imaging is degraded by patient motion, with resultant artifact. The best possible images were obtained.. Head CTA 06/19/19 17:38 IMPRESSION: NO OCCLUSION OF THE MAJOR INTRACRANIAL ARTERIAL VESSELS. THE MORE DISTAL BRANCHES OF THE LEFT MIDDLE CEREBRAL ARTERY ARE SOMEWHAT ATTENUATED COMPARED TO THE RIGHT. MAY BE ARTIFACT DUE TO CONTRAST BOLUS AND POSITIONING OF THE PATIENT'S HEAD BUT CANNOT EXCLUDE THE POSSIBILITY OF VASOSPASM. Neck CTA 06/19/19 17:43 IMPRESSION: 1. NORMAL CTA OF THE EXTRA-CRANIAL CAROTID AND VERTEBRAL ARTERIES. 2. LEFT PLEURAL EFFUSION. RIGHT APICAL PNEUMOTHORAX. THESE FINDINGS HAVE BEEN FOLLOWED ON RECENT X-RAYS. Chest X-Ray 06/28/19 06:00 IMPRESSION: No significant change.Right subclavian miniport catheter tip at the lateral right subclavian vein looping back at the proximal right subclavian vein; consider replacement. All labs, radiographs, diagnostic studies and EKGs were personally reviewed: Yes In addition, reports of radiographic and diagnostic studies were read: Yes Assessment and Plan - Diagnosis (1) Acute hypoxemic respiratory failure Is this a current diagnosis for this admission?: Yes Plan: Wean per protocol. Due to delayed neurologic recovery, the patient will likely need tracheostomy. Continue tube feed (Jevity). ABG in a.m. (2) MRSA pneumonia Qualifiers: Laterality: unspecified laterality Lung location: unspecified part of lung Qualified Code(s): J15.212 - Pneumonia due to Methicillin resistant Staphylococcus aureus Is this a current diagnosis for this admission?: Yes Plan: Continue linezolid. (3) Anoxic encephalopathy Is this a current diagnosis for this admission?: Yes Plan: Overall, no significant improvement in encephalopathy suspected to be secondary to cardiac arrest and prolonged downtime. Frequent neurological examination. (4) Tension pneumothorax Is this a current diagnosis for this admission?: Yes Plan: Resolved. Chest tube removal today. Chest x-ray in a.m. (5) Hyponatremia Is this a current diagnosis for this admission?: Yes Plan: Decrease Solu-Cortef to 100 mg IV every 12 (for presumed adrenal insufficiency, random cortisol 0.54 mcg/dL @ 06/26/2027 08:40). Continued elevation of proBNP and probable volume overload. Furosemide 40 mg IV single dose today. Thyroid profile is compatible with sick euthyroid syndrome. Continue serial BMPs every 12 hours. (6) Substance abuse Is this a current diagnosis for this admission?: Yes Critical Time Critical Time (minutes): 90 Level of Care: ICU -: 1. The care of a critical patient is a dynamic process. This note is a service support representative synopsis but static in nature. The timeframe for treatments given in order is not necessarily the actual time these treatments may have been done. 2. This patient requires critical care secondary to ongoing requirements for therapy not offered or safe outside the critical care environment. Transfer to a lower level of care will result in altered life or limb morbidity and mortality. 3. Multidisciplinary rounds completed. 4. ABCDE bundle addressed.
[2019-06-28] MEDS ORDERED: POTASSIUM CHLORIDE 20 MEQ PACKET PO ONE (19:22)
[2019-06-28] MEDS ORDERED: POTASSIUM CHLORIDE 20 MEQ PACKET ONE (21:55)
[2019-06-29] MEDS: IPRATROPIUM/ALBUTEROL 0.5-2.5 MG/3 ML AMPUL NEB SCH ×3 (00:01→15:38)
[2019-06-29 04:25] LABS: BLOOD UREA NITROGEN 18 mg/dL (7-20); CALCIUM 8.1 mg/dL (8.4-10.2); CARBON DIOXIDE 27 mmol/L (22-30); CHLORIDE 103 mmol/L (98-107); GLUCOSE 127 mg/dL (75-110); POTASSIUM 3.8 mmol/L (3.6-5.0)
[2019-06-29 04:29] LABS: ANION GAP 4 (5-19)
[2019-06-29] MEDS: HEPARIN SOD (PORCINE) 5,000 UNIT/ML 1 ML VIAL SUBCUT SCH ×3 (05:30→21:30)
[2019-06-29] MEDS: AZTREONAM 2 GM in DEXTROSE 5%-WATER 100 ML IV SCH ×4 (05:30→23:14)
[2019-06-29] MEDS: HYDROCORTISONE SOD SUCCINATE INJ/PF 100 MG/2 ML SDV IV SCH ×2 (05:31→21:30)
[2019-06-29] MEDS ORDERED: FUROSEMIDE INJ/PF 40 MG/4 ML SDV IV ONE (09:56)
[2019-06-29] MEDS: ALBUMIN HUMAN 12.5 GM/50 ML RTUINJ IV SCH ×4 (11:38→12:20)
[2019-06-29] MEDS: AMINO AC/PROTEIN HYDR/WHEY PRO 11 GM/45 ML PKT NG SCH ×2 (11:40→17:12)
[2019-06-29] MEDS: FAMOTIDINE INJ/PF 20 MG/2 ML SDV IV SCH ×2 (11:40→21:31)
[2019-06-29] MEDS ORDERED: HYDROCORTISONE SOD SUCCINATE INJ/PF 100 MG/2 ML SDV IV SCH (12:15)
--- NOTE | 2019-06-29 13:26 | RADIOLOGY REPORT (SQ) ---
EXAM DESCRIPTION: CHEST SINGLE VIEW IMAGES COMPLETED DATE/TIME: 06/29/2019 12:48 pm REASON FOR STUDY: pneumothorax COMPARISON: 06/28/2019 0627 hours EXAM PARAMETERS: NUMBER OF VIEWS: One view TECHNIQUE: Single frontal radiograph of the chest. RADIATION DOSE: N/A LIMITATIONS: None. FINDINGS: TEMPORARY SUPPORT DEVICES:ETT in expected location. NG tube courses below the ahmet-diaphr agm in to the stomach. Venous access catheter via right subclavian approach. The tip is supported in the distal subclavian along toward the right all arm. Right chest tube removed. LUNGS AND PLEURA: Persistent dense retrocardiac opacity. No pneumothorax. MEDIASTINUM AND HILAR STRUCTURES: No masses. Contour normal. HEART AND VASCULAR STRUCTURES: Heart size normal. Normal vascularity. Aorta normal for age BONES: No acute findings. OTHER: No other significant finding. IMPRESSION: No pneumothorax post chest tube removal. Position of support devices unchanged. Venous access catheter tip pointed in along the right subclavian pointing toward the axillary. TECHNICAL DOCUMENTATION: JOB ID: [id number] 2010 [employer]- All Rights Reserved Reading location - IP/workstation name: [email or web address]
[2019-06-29 14:39] LABS: ARTERIAL BLOOD FIO2 30%; ARTERIAL BLOOD H2CO3 0.92 mmol/L (1.05-1.35); ARTERIAL BLOOD HCO3 24.5 mmol/L (20-24); ARTERIAL BLOOD O2 SATURATION 98.9 % (94-98); ARTERIAL BLOOD PCO2 30.6 mmHg (35-45); ARTERIAL BLOOD PH 7.52 (7.35-7.45); ARTERIAL BLOOD PO2 131.4 mmHg (80-100); ARTERIAL BLOOD TOTAL CO2 25.4 mmol/L (23-27)
[2019-06-29 17:52] LABS: ANION GAP 5 (5-19); BLOOD UREA NITROGEN 15 mg/dL (7-20); CALCIUM 8.6 mg/dL (8.4-10.2); CARBON DIOXIDE 27 mmol/L (22-30); CHLORIDE 104 mmol/L (98-107); GLUCOSE 118 mg/dL (75-110); POTASSIUM 3.4 mmol/L (3.6-5.0)
[2019-06-29] MEDS ORDERED: PROPOFOL INJ 200 MG/20 ML VIAL IV ONE ×2 (22:16→23:20)
[2019-06-29] MEDS ORDERED: PROPOFOL 1,000 MG/100 ML INFUS..BTL IV ONE (22:41)
--- NOTE | 2019-06-29 23:08 | Operative Report ---
Bedside Procedure - History of Present Illness Indication for Procedure: Respiratory Distress Date: 06/18/19 Provider: JOSE FORRESTER - Additional Procedures Intubation Time performed: 22:40 Notes: Endotracheal Intubation Date: 06/29/2019 Time: 2229 Indication: Respiratory Distress The patient was placed in a flat position. Sedation was obtained using Propofol 20 mcg, and paralytic agent of Succinylcholine 50 mg. The patient was easily ventilated using an ambu bag. The MAC 3 blade was used and inserted into the oropharynx at which time there was a Grade 1 view of the vocal cords. A 8-croatian endotracheal tube was inserted and visualized going through the vocal cords. The stylette was removed. Colorimetric change was visualized on the CO2 meter. Breath sounds were heard in both lung iraheta equally. The endotracheal tube was placed at 25 cm, measured at the teeth. A chest x-ray was ordered to verify endotracheal tube placement. The patient tolerated the procedure well and there were no complications.
[2019-06-29] MEDS ORDERED: SUCCINYLCHOLINE CHLORIDE INJ 200 MG/10 ML VIAL IV ONE (23:19)
[2019-06-29] MEDS ORDERED: PROPOFOL 1,000 MG/100 ML INFUS..BTL IV PRN (23:21)
--- NOTE | 2019-06-29 23:32 | RADIOLOGY REPORT (SQ) ---
EXAM DESCRIPTION: AP portable view of the chest CLINICAL HISTORY: 53 years Male, ETT placement COMPARISON: Portable view of the chest obtained earlier in the day at 12:52 PM FINDINGS: Lungs: Parenchymal opacification is again noted in the left mid and lower lung zone. Possible left pleural effusion. The right lung is clear. No pneumothorax. Mediastinum: Endotracheal tube is in good position and terminates 4.2 cm above the jerry. NG tube passes into the stomach. There is a right chest port in place with the catheter coiling on itself in the subclavian and then taking a 360 degree bend. The tip of the catheter is in the subclavian vein. This is unchanged. Bones: Osseous structures are normal. IMPRESSION: 1. Persistent parenchymal opacification in the left mid and lower lung zone. 2. Endotracheal tube and NG tube are in good position. Right subclavian chest port remains coiled in the subclavian vein.
[2019-06-30] MEDS: IPRATROPIUM/ALBUTEROL 0.5-2.5 MG/3 ML AMPUL NEB SCH ×3 (00:25→16:55)
[2019-06-30 03:14] LABS: HEMATOCRIT 26.6 % (37.9-51.0); HEMOGLOBIN 9.6 g/dL (13.5-17.0); MEAN CORPUSCULAR HEMOGLOBIN 30.8 pg (27.0-33.4); MEAN CORPUSCULAR HGB CONC 36.1 g/dL (32.0-36.0); MEAN CORPUSCULAR VOLUME 85 fl (80-97); PLATELET COUNT 500 10^3/uL (150-450); RED BLOOD COUNT 3.12 10^6/uL (4.35-5.55); RED CELL DISTRIBUTION WIDTH 16.3 % (11.5-14.0); WHITE BLOOD COUNT 11.4 10^3/uL (4.0-10.5)
[2019-06-30 03:17] LABS: ARTERIAL BLOOD BASE EXCESS 2.6 mmol/L; ARTERIAL BLOOD H2CO3 1.07 mmol/L (1.05-1.35); ARTERIAL BLOOD O2 SATURATION 98.3 % (94-98); ARTERIAL BLOOD PCO2 35.5 mmHg (35-45); ARTERIAL BLOOD PH 7.48 (7.35-7.45); ARTERIAL BLOOD PO2 108.5 mmHg (80-100); ARTERIAL BLOOD TOTAL CO2 27.1 mmol/L (23-27)
[2019-06-30 03:18] LABS: ARTERIAL BLOOD FIO2 30%
[2019-06-30 03:31] LABS: ALKALINE PHOSPHATASE 90 U/L (38-126); ANION GAP 6 (5-19); ASPARTATE AMINO TRANSFERASE 77 U/L (17-59); BILIRUBIN,TOTAL 0.4 mg/dL (0.2-1.3); BLOOD UREA NITROGEN 14 mg/dL (7-20); CALCIUM 8.6 mg/dL (8.4-10.2); CARBON DIOXIDE 26 mmol/L (22-30); CHLORIDE 105 mmol/L (98-107); GLUCOSE 115 mg/dL (75-110); PHOSPHORUS 3.3 mg/dL (2.5-4.5); POTASSIUM 3.4 mmol/L (3.6-5.0); TOTAL PROTEIN 5.4 g/dL (6.3-8.2)
[2019-06-30 03:38] LABS: PREALBUMIN 17.6 mg/dL (17.6-36.0)
[2019-06-30] MEDS ORDERED: FUROSEMIDE INJ/PF 40 MG/4 ML SDV IV ONE (04:19)
[2019-06-30] MEDS: HEPARIN SOD (PORCINE) 5,000 UNIT/ML 1 ML VIAL SUBCUT SCH ×3 (05:12→21:08)
[2019-06-30] MEDS: HYDROCORTISONE SOD SUCCINATE INJ/PF 100 MG/2 ML SDV IV SCH ×3 (05:12→21:08)
--- NOTE | 2019-06-30 06:05 | RADIOLOGY REPORT (SQ) ---
EXAM DESCRIPTION: XR CHEST 1 VIEW COMPLETED DATE/TME: 06/30/2019 05:00 CLINICAL HISTORY: 53 years Male, acute respiratory failure COMPARISON: One day prior. NUMBER OF VIEWS/TECHNIQUE: 1/AP FINDINGS: Moderate opacity-effusion in the left lower retrocardiac region. Right subclavian miniport catheter tip at the right mid-distal subclavian vein after looping at the proximal right subclavian vein. Consider replacement or adjustment.Normal cardiac silhouette size. No pneumothorax. Stable bony thorax.Adequate appearing endotracheal tube. Adequate appearing enteric tube partially obscured. IMPRESSION: No significant change.
[2019-06-30] MEDS: FAMOTIDINE INJ/PF 20 MG/2 ML SDV IV SCH ×2 (09:20→21:09)
[2019-06-30] MEDS: AMINO AC/PROTEIN HYDR/WHEY PRO 11 GM/45 ML PKT NG SCH ×2 (09:21→17:59)
--- NOTE | 2019-06-30 12:36 | RADIOLOGY REPORT (SQ) ---
EXAM DESCRIPTION: VENOUS UNILATERAL UPPER IMAGES COMPLETED DATE/TIME: 06/30/2019 12:20 pm REASON FOR STUDY: Right upper extremity swelling COMPARISON: None. TECHNIQUE: Dynamic and static polanco scale and color images acquired of the right arm venous system. S elected spectral images acquired with additional compression and augmentation maneuvers. The contrala teral subclavian vein and internal jugular vein were also imaged. Images stored on PACS. LIMITATIONS: None. FINDINGS: INTERNAL JUGULAR VEIN: Normal phasicity, compression, augmentation. No visualized echogeni c material on polanco scale. No defects on color images. Comparison opposite side normal. SUBCLAVIAN VEIN: Echogenic material within the noncompressible subclavian vein with loss of the zahira l phasicity and augmentation. AXILLARY VEIN: Echogenic material within the noncompressible axillary vein with loss of the normal ph asicity and augmentation. BRACHIAL VEIN: Normal compression, augmentation. No visualized echogenic material on polanco scale. No d efects on color images. BASILIC VEIN: Echogenic material within the noncompressible basilic vein with loss of the normal phas icity and augmentation. CEPHALIC VEIN: Normal compression, augmentation. No visualized echogenic material on polanco scale. No d efects on color images. OTHER: There is a port catheter in the right subclavian vein. CONTRALATERAL SUBCLAVIAN VEIN AND INTERNAL JUGULAR VEIN: Normal phasicity, compression and augmentation. No visualized echogenic material on polanco scale. No de fects on color images. IMPRESSION: THROMBOSIS OF THE RIGHT BASILIC, AXILLARY AND SUBCLAVIAN VEINS. TECHNICAL DOCUMENTATION: JOB ID: [id number] 2010 [employer]- All Rights Reserved Reading location - IP/workstation name: [email or web address]
--- NOTE | 2019-06-30 12:39 | PDOC CRITICAL CARE PROG REPORT ---
General Date:: 06/30/19 ICU Day:: 15 Ventilator Day:: 14 Hospital Day:: 15 Resuscitation Status: Full Code Events in the past 12 to 24 Hours:: Extubated and reintubated yesterday. Review of systems relevant to events:: Neurological, respiratory. Reason for ICU Addmission:: status post cardiac arrest. Re-intubated. - Medications: Medications reviewed and adjusted accordingly: Yes Vasopressors:: None Sedation:: None Physical Exam Vital Signs: Temp Pulse Resp BP Pulse Ox 99.5 F 88 19 149/67 H 95 06/30/19 10:30 06/30/19 08:46 06/30/19 10:30 06/29/19 16:10 06/30/19 10:30 Intake & Output 06/29/19 06/30/19 07/01/19 06:59 06:59 06:59 Intake Total 160 203 Output Total 2160 2695 250 Balance -2000 -2492 -250 Weight 69.3 kg 65.1 kg Weight/Height Weight 65.1 kg Height 5 ft 10 in General appearance: PRESENT: no acute distress Head exam: PRESENT: atraumatic, normocephalic Eye exam: PRESENT: conjunctiva pink, EOMI, PERRLA. ABSENT: scleral icterus Ear exam: PRESENT: normal external ear exam Mouth exam: PRESENT: moist, tongue midline Respiratory exam: PRESENT: clear to auscultation mindy. ABSENT: rales, rhonchi, wheezes Cardiovascular exam: PRESENT: RRR. ABSENT: diastolic murmur, rubs, systolic murmur GI/Abdominal exam: PRESENT: normal bowel sounds, soft. ABSENT: distended, guarding, mass, organolmegaly, rebound, tenderness Rectal exam: PRESENT: deferred Extremities exam: PRESENT: full ROM. ABSENT: calf tenderness, clubbing, pedal edema Musculoskeletal exam: PRESENT: normal inspection Neurological exam: PRESENT: altered, other - Not awake enough to cough well. Skin exam: PRESENT: dry, intact, warm. ABSENT: cyanosis, rash Tubes/Lines: PRESENT: Endotracheal Tube, Arterial Catheter, Nasogastic Tube Laboratory/Radiographs Laboratory Results: 06/30/19 03:00 06/30/19 03:00 06/29/19 06/29/19 06/30/19 14:06 17:30 03:00 WBC RBC Hgb Hct MCV MCH MCHC RDW Plt Count Carbonic Acid 0.92 L 1.07 HCO3/H2CO3 Ratio 26:1 24:1 ABG pH 7.52 H 7.48 H ABG pCO2 30.6 L 35.5 ABG pO2 131.4 H 108.5 H ABG HCO3 24.5 H 26.0 H ABG O2 Saturation 98.9 H 98.3 H ABG Base Excess 2.0 2.6 FiO2 30% 30% Sodium 135.5 L Potassium 3.4 L Chloride 104 Carbon Dioxide 27 Anion Gap 5 BUN 15 Creatinine 0.33 L Est GFR ( Amer) > 60 Glucose 118 H Calcium 8.6 Phosphorus Magnesium Total Bilirubin AST Alkaline Phosphatase Total Protein Albumin Prealbumin 06/30/19 06/30/19 03:00 03:00 WBC 11.4 H RBC 3.12 L Hgb 9.6 L Hct 26.6 L MCV 85 MCH 30.8 MCHC 36.1 H RDW 16.3 H Plt Count 500 H Carbonic Acid HCO3/H2CO3 Ratio ABG pH ABG pCO2 ABG pO2 ABG HCO3 ABG O2 Saturation ABG Base Excess FiO2 Sodium 137.0 Potassium 3.4 L Chloride 105 Carbon Dioxide 26 Anion Gap 6 BUN 14 Creatinine 0.35 L Est GFR ( Amer) > 60 Glucose 115 H Calcium 8.6 Phosphorus 3.3 Magnesium 2.5 H Total Bilirubin 0.4 AST 77 H Alkaline Phosphatase 90 Total Protein 5.4 L Albumin 3.0 L Prealbumin 17.6 06/14/19 06/15/19 06/15/19 12:38 03:50 03:50 Creatine Kinase 222 H CK-MB (CK-2) 3.99 Troponin I < 0.012 0.036 NT-Pro-B Natriuret Pep 06/15/19 06/15/19 06/15/19 12:35 12:35 17:50 Creatine Kinase 590 H 610 H CK-MB (CK-2) 14.20 H Troponin I 0.048 NT-Pro-B Natriuret Pep 06/15/19 06/19/19 06/20/19 17:50 21:25 02:08 Creatine Kinase CK-MB (CK-2) 19.40 H Troponin I 0.025 0.470 0.402 NT-Pro-B Natriuret Pep 06/20/19 06/22/19 06/26/19 08:53 06:48 09:09 Creatine Kinase CK-MB (CK-2) Troponin I 0.244 0.077 NT-Pro-B Natriuret Pep 3140 H 06/28/19 06/30/19 03:55 03:00 Creatine Kinase CK-MB (CK-2) Troponin I NT-Pro-B Natriuret Pep 4410 H 70050 H Impressions: Head CT 06/14/19 15:37 IMPRESSION: NORMAL BRAIN CT WITHOUT CONTRAST. EVIDENCE OF ACUTE STROKE: NO. Abdomen/Pelvis CT 06/14/19 19:43 IMPRESSION: No acute intra-abdominal process is identified. The bowel is nonobstructed. Remote postsurgical change. Dependent atelectasis. Moderate hiatal hernia. Imaging is degraded by patient motion, with resultant artifact. The best possible images were obtained.. Head CTA 06/19/19 17:38 IMPRESSION: NO OCCLUSION OF THE MAJOR INTRACRANIAL ARTERIAL VESSELS. THE MORE DISTAL BRANCHES OF THE LEFT MIDDLE CEREBRAL ARTERY ARE SOMEWHAT ATTENUATED COMPARED TO THE RIGHT. MAY BE ARTIFACT DUE TO CONTRAST BOLUS AND POSITIONING OF THE PATIENT'S HEAD BUT CANNOT EXCLUDE THE POSSIBILITY OF VASOSPASM. Neck CTA 06/19/19 17:43 IMPRESSION: 1. NORMAL CTA OF THE EXTRA-CRANIAL CAROTID AND VERTEBRAL ARTERIES. 2. LEFT PLEURAL EFFUSION. RIGHT APICAL PNEUMOTHORAX. THESE FINDINGS HAVE BEEN FOLLOWED ON RECENT X-RAYS. Chest X-Ray 06/30/19 05:00 IMPRESSION: No significant change. All labs, radiographs, diagnostic studies and EKGs were personally reviewed: Yes In addition, reports of radiographic and diagnostic studies were read: Yes Assessment and Plan - Diagnosis (1) Cardiac arrest Is this a current diagnosis for this admission?: Yes Plan: The reason for his neurological dysfunction. He has not woken up. He will need a trach and PEG as family wants aggressive care. Dr Peacock consulted personally. (2) Polysubstance abuse Is this a current diagnosis for this admission?: Yes Plan: This likely had some role in his arrest. (3) Tension pneumothorax Is this a current diagnosis for this admission?: Yes Plan: Treated with CT x 2. Now resolved and CT out. (4) Adrenal insufficiency Is this a current diagnosis for this admission?: Yes Plan: On stress dose steroids. Plan Summary: Proceed with trach and PEG and consult LTAC to see if he is a candidate. Critical Time Critical Time (minutes): 35 Level of Care: ICU Anticipated discharge: SNF Within: Other -: 1. The care of a critical patient is a dynamic process. This note is a r epresentative synopsis but static in nature. The timeframe for treatments given in order is not necessarily the actual time these treatments may have been done. 2. This patient requires critical care secondary to ongoing requirements for therapy not offered or safe outside the critical care environment. Transfer to a lower level of care will result in altered life or limb morbidity and mortali ty. 3. Multidisciplinary rounds completed. 4. ABCDE bundle addressed.
[2019-06-30 17:45] LABS: ANION GAP 5 (5-19); BLOOD UREA NITROGEN 19 mg/dL (7-20); CALCIUM 8.6 mg/dL (8.4-10.2); CARBON DIOXIDE 28 mmol/L (22-30); CHLORIDE 105 mmol/L (98-107); GLUCOSE 97 mg/dL (75-110); POTASSIUM 3.1 mmol/L (3.6-5.0)
[2019-06-30] MEDS ORDERED: POTASSIUM CHLORIDE 20 MEQ PACKET PO ONE (19:30)
--- NOTE | 2019-06-30 21:45 | PDOC CONSULTATION ---
Consultation Consult Date: 06/30/19 Provider Consulted: SURGICAL SURGICALIST Consult reason:: Ventilatory dependence, cardiac arrest, need for trach and PEG. History of Present Illness Admission Date/PCP: 06/15/19 01:22 INDERJIT SOLIS MD History of Present Illness: LILI KELLOGG is a 53 year old male seen in consultation at the request of the pig caster service. The patient suffered cardiac arrest, presumably related to substance abuse. The patient is currently intubated and sedated. He does not answer questions or arousals. All history is taken from the medical record and the nursing staff. No review of systems is able to be obtained. The patient had a trial extubation, which failed. has requested trach and PEG to facilitate LTAC placement. ro Past Medical History Malignancy Medical History: Reports: Other - colon cancer Past Surgical History Past Surgical History: Reports: Orthopedic Surgery - L BKA, Other - left bka Social History Lives with: Other - Rehab Smoking Status: Unknown if Ever Smoked Frequency of Alcohol Use: Occasional Drugs: Cocaine, Marijuana - Advance Directive Resuscitation Status: Full Code Family History Family History: Reviewed & Not Pertinent Parental Family History Reviewed: Yes Children Family History Reviewed: Yes Sibling(s) Family History Reviewed.: Yes Medication/Allergy Home Medications: No Home Medications 06/15/19 Allergies/Adverse Reactions: morphine Allergy (Verified 06/14/19 12:05) penicillin V Allergy (Verified 06/14/19 12:05) Review of Systems ROS unobtainable: Due to endotracheal tube, Due to mental status Physical Exam Vital Signs: Temp Pulse Resp BP Pulse Ox 99.5 F 91 23 H 149/67 H 95 06/30/19 18:00 06/30/19 20:00 06/30/19 18:00 06/29/19 16:10 06/30/19 18:00 Intake & Output 06/29/19 06/30/19 07/01/19 06:59 06:59 06:59 Intake Total 160 203 72 Output Total 2680 0115 520 Balance -2000 -2492 -448 Weight 69.3 kg 65.1 kg General appearance: ABSENT: cooperative Head exam: PRESENT: atraumatic, normocephalic Eye exam: ABSENT: scleral icterus Mouth exam: PRESENT: moist, neck supple Neck exam: ABSENT: thyromegaly, tracheal deviation Respiratory exam: PRESENT: other - On the ventilator. Coarse breath sounds bilaterally. Cardiovascular exam: ABSENT: tachycardia Pulses: PRESENT: normal radial pulses Vascular exam: PRESENT: normal capillary refill GI/Abdominal exam: PRESENT: soft. ABSENT: distended, firm, rigid, tenderness Rectal exam: PRESENT: deferred Extremities exam: ABSENT: clubbing Musculoskeletal exam: ABSENT: deformity Neurological exam: ABSENT: alert, awake Psychiatric exam: ABSENT: agitated, anxious Skin exam: ABSENT: cyanosis, erythema, jaundice Results Laboratory Results: 06/30/19 03:00 06/30/19 16:50 06/30/19 06/30/19 06/30/19 03:00 03:00 03:00 WBC 11.4 H RBC 3.12 L Hgb 9.6 L Hct 26.6 L MCV 85 MCH 30.8 MCHC 36.1 H RDW 16.3 H Plt Count 500 H Carbonic Acid 1.07 HCO3/H2CO3 Ratio 24:1 ABG pH 7.48 H ABG pCO2 35.5 ABG pO2 108.5 H ABG HCO3 26.0 H ABG O2 Saturation 98.3 H ABG Base Excess 2.6 FiO2 30% Sodium 137.0 Potassium 3.4 L Chloride 105 Carbon Dioxide 26 Anion Gap 6 BUN 14 Creatinine 0.35 L Est GFR ( Amer) > 60 Glucose 115 H Calcium 8.6 Phosphorus 3.3 Magnesium 2.5 H Total Bilirubin 0.4 AST 77 H Alkaline Phosphatase 90 Total Protein 5.4 L Albumin 3.0 L Prealbumin 17.6 06/30/19 16:50 WBC RBC Hgb Hct MCV MCH MCHC RDW Plt Count Carbonic Acid HCO3/H2CO3 Ratio ABG pH ABG pCO2 ABG pO2 ABG HCO3 ABG O2 Saturation ABG Base Excess FiO2 Sodium 137.6 Potassium 3.1 L Chloride 105 Carbon Dioxide 28 Anion Gap 5 BUN 19 Creatinine 0.33 L Est GFR ( Amer) > 60 Glucose 97 Calcium 8.6 Phosphorus Magnesium Total Bilirubin AST Alkaline Phosphatase Total Protein Albumin Prealbumin 06/14/19 06/15/19 06/15/19 12:38 03:50 03:50 Creatine Kinase 222 H CK-MB (CK-2) 3.99 Troponin I < 0.012 0.036 NT-Pro-B Natriuret Pep 06/15/19 06/15/19 06/15/19 12:35 12:35 17:50 Creatine Kinase 590 H 610 H CK-MB (CK-2) 14.20 H Troponin I 0.048 NT-Pro-B Natriuret Pep 06/15/19 06/19/19 06/20/19 17:50 21:25 02:08 Creatine Kinase CK-MB (CK-2) 19.40 H Troponin I 0.025 0.470 0.402 NT-Pro-B Natriuret Pep 06/20/19 06/22/19 06/26/19 08:53 06:48 09:09 Creatine Kinase CK-MB (CK-2) Troponin I 0.244 0.077 NT-Pro-B Natriuret Pep 3140 H 06/28/19 06/30/19 03:55 03:00 Creatine Kinase CK-MB (CK-2) Troponin I NT-Pro-B Natriuret Pep 4410 H 69565 H Impressions: Head CT 06/14/19 15:37 IMPRESSION: NORMAL BRAIN CT WITHOUT CONTRAST. EVIDENCE OF ACUTE STROKE: NO. Abdomen/Pelvis CT 06/14/19 19:43 IMPRESSION: No acute intra-abdominal process is identified. The bowel is nonobstructed. Remote postsurgical change. Dependent atelectasis. Moderate hiatal hernia. Imaging is degraded by patient motion, with resultant artifact. The best possible images were obtained.. Head CTA 06/19/19 17:38 IMPRESSION: NO OCCLUSION OF THE MAJOR INTRACRANIAL ARTERIAL VESSELS. THE MORE DISTAL BRANCHES OF THE LEFT MIDDLE CEREBRAL ARTERY ARE SOMEWHAT ATTENUATED COMPARED TO THE RIGHT. MAY BE ARTIFACT DUE TO CONTRAST BOLUS AND POSITIONING OF THE PATIENT'S HEAD BUT CANNOT EXCLUDE THE POSSIBILITY OF VASOSPASM. Neck CTA 06/19/19 17:43 IMPRESSION: 1. NORMAL CTA OF THE EXTRA-CRANIAL CAROTID AND VERTEBRAL ARTERIES. 2. LEFT PLEURAL EFFUSION. RIGHT APICAL PNEUMOTHORAX. THESE FINDINGS HAVE BEEN FOLLOWED ON RECENT X-RAYS. Venous Doppler Study 06/30/19 00:00 IMPRESSION: THROMBOSIS OF THE RIGHT BASILIC, AXILLARY AND SUBCLAVIAN VEINS. Chest X-Ray 06/30/19 05:00 IMPRESSION: No significant change. Assessment & Plan - Diagnosis (1) Ventilator dependence Is this a current diagnosis for this admission?: Yes - Plan Summary Plan Summary: This is a 53-year-old male status post cardiac arrest. He appears to be dependent on the ventilator. He has failed extubation. I have been consulted for tracheostomy and PEG placement. I have attempted to contact his family to discuss these issues, however I have been unsuccessful in reaching them. I will attempt to contact them again tomorrow to discuss the procedures. Surgery will continue to follow.
[2019-07-01] MEDS: IPRATROPIUM/ALBUTEROL 0.5-2.5 MG/3 ML AMPUL NEB SCH ×3 (00:17→16:41)
[2019-07-01 05:47] LABS: BLOOD UREA NITROGEN 20 mg/dL (7-20); CALCIUM 8.7 mg/dL (8.4-10.2); GLUCOSE 104 mg/dL (75-110)
[2019-07-01 05:48] LABS: ANION GAP 6 (5-19); CARBON DIOXIDE 26 mmol/L (22-30); CHLORIDE 108 mmol/L (98-107); POTASSIUM 3.7 mmol/L (3.6-5.0)
[2019-07-01] MEDS: HEPARIN SOD (PORCINE) 5,000 UNIT/ML 1 ML VIAL SUBCUT SCH ×3 (06:16→21:58)
[2019-07-01] MEDS: HYDROCORTISONE SOD SUCCINATE INJ/PF 100 MG/2 ML SDV IV SCH (06:16)
[2019-07-01] MEDS: AMINO AC/PROTEIN HYDR/WHEY PRO 11 GM/45 ML PKT NG SCH ×2 (09:31→17:06)
[2019-07-01] MEDS: FAMOTIDINE INJ/PF 20 MG/2 ML SDV IV SCH ×2 (09:31→21:59)
--- NOTE | 2019-07-01 09:44 | Progress Note ---
Provider Note Provider Note: pt seen and evulated for trach and g-tube I spoke iwth mother on the phone and she has been informed of the risks and benifits of the procedure and she agreed to proceed. will schedule the trach and g-tube .
--- NOTE | 2019-07-01 10:17 | PDOC CRITICAL CARE PROG REPORT ---
General Date:: 07/01/19 ICU Day:: 16 Ventilator Day:: 16 Hospital Day:: 16 Resuscitation Status: Full Code Events in the past 12 to 24 Hours:: Consult for trach and PEG, consult made for LTAC. Review of systems relevant to events:: Neurological. Reason for ICU Addmission:: status post cardiac arrest. Re-intubated. - Medications: Medications reviewed and adjusted accordingly: Yes Vasopressors:: None Sedation:: None Physical Exam Vital Signs: Temp Pulse Resp BP Pulse Ox 99.7 F 87 18 137/67 H 94 07/01/19 08:00 07/01/19 08:04 07/01/19 08:04 07/01/19 08:00 07/01/19 08:04 Intake & Output 06/30/19 07/01/19 07/02/19 06:59 06:59 06:59 Intake Total 203 522 Output Total 2695 910 35 Balance -2492 -388 -35 Weight 65.1 kg 63.7 kg Weight/Height Weight 63.7 kg Height 5 ft 10 in General appearance: PRESENT: no acute distress Head exam: PRESENT: atraumatic, normocephalic Eye exam: PRESENT: conjunctiva pink, PERRLA. ABSENT: scleral icterus Ear exam: PRESENT: normal external ear exam Mouth exam: PRESENT: moist, tongue midline Respiratory exam: PRESENT: rhonchi - On both Cardiovascular exam: PRESENT: RRR. ABSENT: diastolic murmur, rubs, systolic murmur GI/Abdominal exam: PRESENT: normal bowel sounds, soft. ABSENT: distended, guarding, mass, organolmegaly, rebound, tenderness Rectal exam: PRESENT: deferred Gentrourinary exam: PRESENT: indwelling catheter Extremities exam: PRESENT: full ROM. ABSENT: calf tenderness, clubbing, pedal edema Musculoskeletal exam: PRESENT: normal inspection Neurological exam: PRESENT: other - No significant neurologic recovery yet. Skin exam: PRESENT: dry, intact, warm. ABSENT: cyanosis, rash Tubes/Lines: PRESENT: Endotracheal Tube, Arterial Catheter, Nasogastic Tube Laboratory/Radiographs Laboratory Results: 06/30/19 03:00 07/01/19 04:00 06/30/19 07/01/19 16:50 04:00 Sodium 137.6 139.7 Potassium 3.1 L 3.7 Chloride 105 108 H Carbon Dioxide 28 26 Anion Gap 5 6 BUN 19 20 Creatinine 0.33 L 0.30 L Est GFR ( Amer) > 60 > 60 Glucose 97 104 Calcium 8.6 8.7 06/14/19 06/15/19 06/15/19 12:38 03:50 03:50 Creatine Kinase 222 H CK-MB (CK-2) 3.99 Troponin I < 0.012 0.036 NT-Pro-B Natriuret Pep 06/15/19 06/15/19 06/15/19 12:35 12:35 17:50 Creatine Kinase 590 H 610 H CK-MB (CK-2) 14.20 H Troponin I 0.048 NT-Pro-B Natriuret Pep 06/15/19 06/19/19 06/20/19 17:50 21:25 02:08 Creatine Kinase CK-MB (CK-2) 19.40 H Troponin I 0.025 0.470 0.402 NT-Pro-B Natriuret Pep 06/20/19 06/22/19 06/26/19 08:53 06:48 09:09 Creatine Kinase CK-MB (CK-2) Troponin I 0.244 0.077 NT-Pro-B Natriuret Pep 3140 H 06/28/19 06/30/19 03:55 03:00 Creatine Kinase CK-MB (CK-2) Troponin I NT-Pro-B Natriuret Pep 4410 H 20739 H Impressions: Head CT 06/14/19 15:37 IMPRESSION: NORMAL BRAIN CT WITHOUT CONTRAST. EVIDENCE OF ACUTE STROKE: NO. Abdomen/Pelvis CT 06/14/19 19:43 IMPRESSION: No acute intra-abdominal process is identified. The bowel is nonobstructed. Remote postsurgical change. Dependent atelectasis. Moderate hiatal hernia. Imaging is degraded by patient motion, with resultant artifact. The best possible images were obtained.. Head CTA 06/19/19 17:38 IMPRESSION: NO OCCLUSION OF THE MAJOR INTRACRANIAL ARTERIAL VESSELS. THE MORE DISTAL BRANCHES OF THE LEFT MIDDLE CEREBRAL ARTERY ARE SOMEWHAT ATTENUATED COMPARED TO THE RIGHT. MAY BE ARTIFACT DUE TO CONTRAST BOLUS AND POSITIONING OF THE PATIENT'S HEAD BUT CANNOT EXCLUDE THE POSSIBILITY OF VASOSPASM. Neck CTA 06/19/19 17:43 IMPRESSION: 1. NORMAL CTA OF THE EXTRA-CRANIAL CAROTID AND VERTEBRAL ARTERIES. 2. LEFT PLEURAL EFFUSION. RIGHT APICAL PNEUMOTHORAX. THESE FINDINGS HAVE BEEN FOLLOWED ON RECENT X-RAYS. Venous Doppler Study 06/30/19 00:00 IMPRESSION: THROMBOSIS OF THE RIGHT BASILIC, AXILLARY AND SUBCLAVIAN VEINS. Chest X-Ray 06/30/19 05:00 IMPRESSION: No significant change. All labs, radiographs, diagnostic studies and EKGs were personally reviewed: Yes In addition, reports of radiographic and diagnostic studies were read: Yes Assessment and Plan - Diagnosis (1) Cardiac arrest Is this a current diagnosis for this admission?: Yes Plan: Resolved but with significant neurological residual. (2) Polysubstance abuse Is this a current diagnosis for this admission?: Yes Plan: intermediate and probably contributed to his arrest. (3) Tension pneumothorax Is this a current diagnosis for this admission?: Yes Plan: Resolved (4) Adrenal insufficiency Is this a current diagnosis for this admission?: Yes Plan: Tapering steroids again today. Plan Summary: Plan for a trach and PEG by Dr. Awan . Critical Time Critical Time (minutes): 35 Level of Care: ICU Anticipated discharge: Other - LTAC Within: when bed available -: 1. The care of a critical patient is a dynamic process. This note is a customer solutions representative synopsis but static in nature. The timeframe for treatments given in order is not necessarily the actual time these treatments may have been done. 2. This patient requires critical care secondary to ongoing requirements for therapy not offered or safe outside the critical care environment. Transfer to a lower level of care will result in altered life or limb morbidity and mortal ity. 3. Multidisciplinary rounds completed. 4. ABCDE bundle addressed.
[2019-07-01 16:49] LABS: ANION GAP 5 (5-19); BLOOD UREA NITROGEN 19 mg/dL (7-20); CALCIUM 8.7 mg/dL (8.4-10.2); CARBON DIOXIDE 27 mmol/L (22-30); CHLORIDE 109 mmol/L (98-107); GLUCOSE 100 mg/dL (75-110); POTASSIUM 3.2 mmol/L (3.6-5.0)
[2019-07-01] MEDS ORDERED: POTASSIUM CHLORIDE 20 MEQ PACKET NG ONE (17:45)
[2019-07-01] MEDS ORDERED: POTASSIUM CHLORIDE 10 MEQ TABLET.ER PO ONE (18:00)
[2019-07-01] MEDS ORDERED: HYDROCORTISONE SOD SUCCINATE INJ/PF 100 MG/2 ML SDV IV SCH (18:00)
[2019-07-02] MEDS: IPRATROPIUM/ALBUTEROL 0.5-2.5 MG/3 ML AMPUL NEB SCH ×3 (00:17→16:12)
[2019-07-02 05:11] LABS: ANION GAP 5 (5-19); BLOOD UREA NITROGEN 20 mg/dL (7-20); CALCIUM 8.6 mg/dL (8.4-10.2); CARBON DIOXIDE 26 mmol/L (22-30); CHLORIDE 111 mmol/L (98-107); GLUCOSE 96 mg/dL (75-110); POTASSIUM 3.5 mmol/L (3.6-5.0)
[2019-07-02] MEDS: HEPARIN SOD (PORCINE) 5,000 UNIT/ML 1 ML VIAL SUBCUT SCH ×3 (05:21→22:01)
[2019-07-02] MEDS ORDERED: POTASSIUM CHLORIDE 10 MEQ TABLET.ER PO SCH (10:00)
[2019-07-02] MEDS ORDERED: HYDROCORTISONE SOD SUCCINATE INJ/PF 100 MG/2 ML SDV IV SCH (10:00)
--- NOTE | 2019-07-02 10:09 | PDOC CRITICAL CARE PROG REPORT ---
General Date:: 07/02/19 ICU Day:: 17 Ventilator Day:: 17 Hospital Day:: 17 Resuscitation Status: Full Code Events in the past 12 to 24 Hours:: Scheduled trach and PEG for . LTAC to evaluate. Review of systems relevant to events:: Neurological. Reason for ICU Addmission:: status post cardiac arrest. Re-intubated. - Medications: Medications reviewed and adjusted accordingly: Yes Vasopressors:: None Sedation:: None Physical Exam Vital Signs: Temp Pulse Resp BP Pulse Ox 99.9 F 87 25 H 143/70 H 100 07/02/19 06:00 07/02/19 08:10 07/02/19 08:10 07/01/19 18:00 07/02/19 08:10 Intake & Output 07/01/19 07/02/19 07/03/19 06:59 06:59 06:59 Intake Total 522 930 Output Total 910 1160 100 Balance -388 -230 -100 Weight 63.7 kg 63 kg Weight/Height Weight 63 kg Height 5 ft 10 in General appearance: PRESENT: no acute distress, thin Head exam: PRESENT: atraumatic, normocephalic Eye exam: PRESENT: conjunctiva pink, EOMI, PERRLA. ABSENT: scleral icterus Ear exam: PRESENT: normal external ear exam Mouth exam: PRESENT: moist, tongue midline Respiratory exam: PRESENT: clear to auscultation mindy. ABSENT: rales, rhonchi, wheezes Cardiovascular exam: PRESENT: RRR. ABSENT: diastolic murmur, rubs, systolic murmur GI/Abdominal exam: PRESENT: normal bowel sounds, soft. ABSENT: distended, guarding, mass, organolmegaly, rebound, tenderness Rectal exam: PRESENT: deferred Extremities exam: PRESENT: full ROM. ABSENT: calf tenderness, clubbing, pedal edema Musculoskeletal exam: PRESENT: normal inspection Neurological exam: PRESENT: other - Exhibits eye opening to touch. No purposeful movements. Skin exam: PRESENT: dry, intact, warm. ABSENT: cyanosis, rash Tubes/Lines: PRESENT: Endotracheal Tube, Nasogastic Tube Laboratory/Radiographs Laboratory Results: 06/30/19 03:00 07/02/19 04:30 07/01/19 07/02/19 16:14 04:30 Sodium 140.9 141.9 Potassium 3.2 L 3.5 L Chloride 109 H 111 H Carbon Dioxide 27 26 Anion Gap 5 5 BUN 19 20 Creatinine 0.37 L 0.35 L Est GFR ( Amer) > 60 > 60 Glucose 100 96 Calcium 8.7 8.6 06/14/19 06/15/19 06/15/19 12:38 03:50 03:50 Creatine Kinase 222 H CK-MB (CK-2) 3.99 Troponin I < 0.012 0.036 NT-Pro-B Natriuret Pep 06/15/19 06/15/19 06/15/19 12:35 12:35 17:50 Creatine Kinase 590 H 610 H CK-MB (CK-2) 14.20 H Troponin I 0.048 NT-Pro-B Natriuret Pep 06/15/19 06/19/19 06/20/19 17:50 21:25 02:08 Creatine Kinase CK-MB (CK-2) 19.40 H Troponin I 0.025 0.470 0.402 NT-Pro-B Natriuret Pep 06/20/19 06/22/19 06/26/19 08:53 06:48 09:09 Creatine Kinase CK-MB (CK-2) Troponin I 0.244 0.077 NT-Pro-B Natriuret Pep 3140 H 06/28/19 06/30/19 03:55 03:00 Creatine Kinase CK-MB (CK-2) Troponin I NT-Pro-B Natriuret Pep 4410 H 50907 H Impressions: Head CT 06/14/19 15:37 IMPRESSION: NORMAL BRAIN CT WITHOUT CONTRAST. EVIDENCE OF ACUTE STROKE: NO. Abdomen/Pelvis CT 06/14/19 19:43 IMPRESSION: No acute intra-abdominal process is identified. The bowel is nonobstructed. Remote postsurgical change. Dependent atelectasis. Moderate hiatal hernia. Imaging is degraded by patient motion, with resultant artifact. The best possible images were obtained.. Head CTA 06/19/19 17:38 IMPRESSION: NO OCCLUSION OF THE MAJOR INTRACRANIAL ARTERIAL VESSELS. THE MORE DISTAL BRANCHES OF THE LEFT MIDDLE CEREBRAL ARTERY ARE SOMEWHAT ATTENUATED ROBBIN RED TO THE RIGHT. MAY BE ARTIFACT DUE TO CONTRAST BOLUS AND POSITIONING OF THE PATIENT'S HEAD BUT CANNOT EXCLUDE THE POSSIBILITY OF VASOSPASM. Neck CTA 06/19/19 17:43 IMPRESSION: 1. NORMAL CTA OF THE EXTRA-CRANIAL CAROTID AND VERTEBRAL ARTERIES. 2. LEFT PLEURAL EFFUSION. RIGHT APICAL PNEUMOTHORAX. THESE FINDINGS HAVE BEEN FOLLOWED ON RECENT X-RAYS. Venous Doppler Study 06/30/19 00:00 IMPRESSION: THROMBOSIS OF THE RIGHT BASILIC, AXILLARY AND SUBCLAVIAN VEINS. Chest X-Ray 06/30/19 05:00 IMPRESSION: No significant change. All labs, radiographs, diagnostic studies and EKGs were personally reviewed: Yes In addition, reports of radiographic and diagnostic studies were read: Yes Assessment and Plan - Diagnosis (1) Cardiac arrest Is this a current diagnosis for this admission?: Yes Plan: The cause of his anoxic damage. No recurrance. (2) Polysubstance abuse Is this a current diagnosis for this admission?: Yes Plan: This has been chronic (3) Tension pneumothorax Is this a current diagnosis for this admission?: Yes Plan: Resolved (4) Adrenal insufficiency Is this a current diagnosis for this admission?: Yes Plan: Steroids coming down. Plan Summary: Trach and PEG . LTAC to evaluate. Start IVF and decrease steroids. Critical Time Critical Time (minutes): 35 Level of Care: ICU Anticipated discharge: SNF Within: Other -: 1. The care of a critical patient is a dynamic process. This note is a sales representative cash registers synopsis but static in nature. The timeframe for treatments given in order is not necessarily the actual time these treatments may have been done. 2. This patient requires critical care secondary to ongoing requirements for therapy not offered or safe outside the critical care environment. Transfer to a lower level of care will result in altered life or limb morbidity and mortality. 3. Multidisciplinary rounds completed. 4. ABCDE bundle addressed.
[2019-07-02] MEDS: FAMOTIDINE INJ/PF 20 MG/2 ML SDV IV SCH ×2 (10:23→22:00)
[2019-07-02] MEDS: AMINO AC/PROTEIN HYDR/WHEY PRO 11 GM/45 ML PKT NG SCH ×2 (10:23→18:02)
[2019-07-02] MEDS: POTASSIUM CHLORIDE 20 MEQ PACKET NG SCH (10:23)
[2019-07-02] MEDS: RINGERS SOLUTION,LACTATED 1,000 ML IV PRN (13:00)
[2019-07-02 15:30] LABS: ANION GAP 6 (5-19); BLOOD UREA NITROGEN 17 mg/dL (7-20); CALCIUM 8.6 mg/dL (8.4-10.2); CARBON DIOXIDE 25 mmol/L (22-30); CHLORIDE 109 mmol/L (98-107); GLUCOSE 117 mg/dL (75-110); POTASSIUM 4.4 mmol/L (3.6-5.0)
--- NOTE | 2019-07-02 21:16 | PDOC PROGRESS REPORT ---
Subjective Progress Note for:: 07/02/19 Subjective:: 53 y/o M intubated and sedated. He has been dependent on the vent, and has recently failed extubation. He is intubated and sedated. A review of systems in unobtainable. Reason For Visit: OPIATE WITHDRAW,COPD EXACERBATION ACUTE Physical Exam Vital Signs: Temp Pulse Resp BP Pulse Ox 100.6 F H 85 28 H 103/85 94 07/02/19 18:00 07/02/19 16:12 07/02/19 18:00 07/02/19 14:00 07/02/19 18:00 Intake & Output 07/01/19 07/02/19 07/03/19 06:59 06:59 06:59 Intake Total 522 930 450 Output Total 910 1160 950 Balance -388 -230 -500 Weight 63.7 kg 63 kg General appearance: PRESENT: no acute distress, other - intubated and sedated Head exam: PRESENT: atraumatic, normocephalic Eye exam: ABSENT: scleral icterus Mouth exam: PRESENT: moist, neck supple Neck exam: ABSENT: meningismus, tenderness, thyromegaly, tracheal deviation Respiratory exam: PRESENT: tachypnea, wheezes, other - coarse BS bilaterally. intubated Cardiovascular exam: ABSENT: tachycardia GI/Abdominal exam: PRESENT: soft. ABSENT: distended, firm, tenderness Rectal exam: PRESENT: deferred Extremities exam: ABSENT: clubbing Musculoskeletal exam: ABSENT: deformity Neurological exam: ABSENT: alert, awake Focused psych exam: PRESENT: other - sedated Skin exam: ABSENT: jaundice Results Laboratory Results: 06/30/19 03:00 07/02/19 14:53 07/02/19 07/02/19 04:30 14:53 Sodium 141.9 139.5 Potassium 3.5 L 4.4 Chloride 111 H 109 H Carbon Dioxide 26 25 Anion Gap 5 6 BUN 20 17 Creatinine 0.35 L 0.36 L Est GFR ( Amer) > 60 > 60 Glucose 96 117 H Calcium 8.6 8.6 06/14/19 06/15/19 06/15/19 12:38 03:50 03:50 Creatine Kinase 222 H CK-MB (CK-2) 3.99 Troponin I < 0.012 0.036 NT-Pro-B Natriuret Pep 06/15/19 06/15/1920 12:35 12:35 17:50 Creatine Kinase 590 H 610 H CK-MB (CK-2) 14.20 H Troponin I 0.048 NT-Pro-B Natriuret Pep 06/15/19 06/19/19 06/20/19 17:50 21:25 02:08 Creatine Kinase CK-MB (CK-2) 19.40 H Troponin I 0.025 0.470 0.402 NT-Pro-B Natriuret Pep 06/20/19 06/22/19 06/26/19 08:53 06:48 09:09 Creatine Kinase CK-MB (CK-2) Troponin I 0.244 0.077 NT-Pro-B Natriuret Pep 3140 H 06/28/19 06/30/19 03:55 03:00 Creatine Kinase CK-MB (CK-2) Troponin I NT-Pro-B Natriuret Pep 4410 H 67563 H Impressions: Head CT 06/14/19 15:37 IMPRESSION: NORMAL BRAIN CT WITHOUT CONTRAST. EVIDENCE OF ACUTE STROKE: NO. Abdomen/Pelvis CT 06/14/19 19:43 IMPRESSION: No acute intra-abdominal process is identified. The bowel is nonobstructed. Remote postsurgical change. Dependent atelectasis. Moderate hiatal hernia. Imaging is degraded by patient motion, with resultant artifact. The best possible images were obtained.. Head CTA 06/19/19 17:38 IMPRESSION: NO OCCLUSION OF THE MAJOR INTRACRANIAL ARTERIAL VESSELS. THE MORE DISTAL BRANCHES OF THE LEFT MIDDLE CEREBRAL ARTERY ARE SOMEWHAT ATTENUATED COMPARED TO THE RIGHT. MAY BE ARTIFACT DUE TO CONTRAST BOLUS AND POSITIONING OF THE PATIENT'S HEAD BUT CANNOT EXCLUDE THE POSSIBILITY OF VASOSPASM. Neck CTA 06/19/19 17:43 IMPRESSION: 1. NORMAL CTA OF THE EXTRA-CRANIAL CAROTID AND VERTEBRAL ARTERIES. 2. LEFT PLEURAL EFFUSION. RIGHT APICAL PNEUMOTHORAX. THESE FINDINGS HAVE BEEN FOLLOWED ON RECENT X-RAYS. Venous Doppler Study 06/30/19 00:00 IMPRESSION: THROMBOSIS OF THE RIGHT BASILIC, AXILLARY AND SUBCLAVIAN VEINS. Chest X-Ray 06/30/19 05:00 IMPRESSION: No significant change. Assessment & Plan - Diagnosis (1) Ventilator dependence Is this a current diagnosis for this admission?: Yes - Plan Summary Plan Summary: 53 y/o M with vent dependence. Plan for trach and PEG tomorrow by Dr. Awan. NPO after midnight.
[2019-07-02] MEDS ORDERED: DEXTROSE 40% GEL 15 GM TUBE PO PRN ×2 (21:20)
[2019-07-02] MEDS ORDERED: DEXTROSE 50%-WATER 25 GM/50 ML DISP.SYRIN IV PRN ×2 (21:20)
[2019-07-02] MEDS ORDERED: GLUCAGON,HUMAN RECOMB 1 MG INJ SUBCUT PRN (21:20)
[2019-07-03] MEDS: IPRATROPIUM/ALBUTEROL 0.5-2.5 MG/3 ML AMPUL NEB SCH ×3 (00:50→16:21)
[2019-07-03] MEDS: ACETAMINOPHEN SOLN 325 MG/10.15 ML UDCUP NG PRN (00:54)
[2019-07-03 04:28] LABS: HEMATOCRIT 30.3 % (37.9-51.0); HEMOGLOBIN 10.5 g/dL (13.5-17.0); MEAN CORPUSCULAR HEMOGLOBIN 30.3 pg (27.0-33.4); MEAN CORPUSCULAR HGB CONC 34.8 g/dL (32.0-36.0); MEAN CORPUSCULAR VOLUME 87 fl (80-97); PLATELET COUNT 524 10^3/uL (150-450); RED BLOOD COUNT 3.47 10^6/uL (4.35-5.55); RED CELL DISTRIBUTION WIDTH 16.9 % (11.5-14.0); WHITE BLOOD COUNT 13.6 10^3/uL (4.0-10.5)
[2019-07-03 04:52] LABS: ANION GAP 5 (5-19); BLOOD UREA NITROGEN 15 mg/dL (7-20); CALCIUM 8.4 mg/dL (8.4-10.2); CARBON DIOXIDE 24 mmol/L (22-30); CHLORIDE 108 mmol/L (98-107); GLUCOSE 77 mg/dL (75-110); POTASSIUM 3.7 mmol/L (3.6-5.0)
[2019-07-03] MEDS: RINGERS SOLUTION,LACTATED 1,000 ML IV PRN ×2 (05:01→17:48)
[2019-07-03] MEDS: HEPARIN SOD (PORCINE) 5,000 UNIT/ML 1 ML VIAL SUBCUT SCH ×3 (05:01→21:53)
--- NOTE | 2019-07-03 07:32 | PDOC CRITICAL CARE PROG REPORT ---
General Date:: 07/03/19 ICU Day:: 18 Ventilator Day:: 18 Hospital Day:: 18 Resuscitation Status: Full Code Events in the past 12 to 24 Hours:: Accepted by LTAC. Trach and PEG today. Review of systems relevant to events:: Neurological. CV Reason for ICU Addmission:: status post cardiac arrest. Re-intubated. - Medications: Medications reviewed and adjusted accordingly: Yes Vasopressors:: None Sedation:: None Physical Exam Vital Signs: Temp Pulse Resp BP Pulse Ox 100.9 F H 94 27 H 103/85 97 07/03/19 06:00 07/03/19 00:51 07/03/19 06:00 07/02/19 14:00 07/03/19 06:00 Intake & Output 07/02/19 07/03/19 07/04/19 06:59 06:59 06:59 Intake Total 930 1450 Output Total 1160 1465 Balance -230 -15 Weight 63 kg 64 kg Weight/Height Weight 64 kg Height 5 ft 10 in General appearance: PRESENT: no acute distress, thin Head exam: PRESENT: atraumatic, normocephalic Eye exam: PRESENT: conjunctiva pink, PERRLA, other - Pupils about 2mm. Less than 1mm anisocoria.. ABSENT: scleral icterus Ear exam: PRESENT: normal external ear exam Mouth exam: PRESENT: moist, tongue midline Respiratory exam: PRESENT: clear to auscultation mindy, decreased breath sounds - Breath sounds are a bit coarse.. ABSENT: rales, rhonchi, wheezes GI/Abdominal exam: PRESENT: normal bowel sounds, soft. ABSENT: distended, guarding, mass, organolmegaly, rebound, tenderness Rectal exam: PRESENT: deferred Gentrourinary exam: PRESENT: indwelling catheter Extremities exam: PRESENT: full ROM, other - L BKA.. ABSENT: calf tenderness, c lubbing, pedal edema Musculoskeletal exam: PRESENT: normal inspection, other - Some muscle wasting. Neurological exam: PRESENT: other - He seems to make stretching motions on occassion. Not decrebration. Skin exam: PRESENT: dry, intact, warm. ABSENT: cyanosis, rash Tubes/Lines: PRESENT: Endotracheal Tube, Arterial Catheter, Nasogastic Tube, Other - Chemoport on R side. Laboratory/Radiographs Laboratory Results: 07/03/19 04:15 07/03/19 04:15 07/02/19 07/03/19 07/03/19 14:53 04:15 04:15 WBC 13.6 H RBC 3.47 L Hgb 10.5 L Hct 30.3 L MCV 87 MCH 30.3 MCHC 34.8 RDW 16.9 H Plt Count 524 H Sodium 139.5 137.4 Potassium 4.4 3.7 Chloride 109 H 108 H Carbon Dioxide 25 24 Anion Gap 6 5 BUN 17 15 Creatinine 0.36 L 0.34 L Est GFR ( Amer) > 60 > 60 Glucose 117 H 77 Calcium 8.6 8.4 06/14/19 06/15/19 06/15/19 12:38 03:50 03:50 Creatine Kinase 222 H CK-MB (CK-2) 3.99 Troponin I < 0.012 0.036 NT-Pro-B Natriuret Pep 06/15/19 06/15/19 06/15/19 12:35 12:35 17:50 Creatine Kinase 590 H 610 H CK-MB (CK-2) 14.20 H Troponin I 0.048 NT-Pro-B Natriuret Pep 06/15/19 06/19/19 06/20/19 17:50 21:25 02:08 Creatine Kinase CK-MB (CK-2) 19.40 H Troponin I 0.025 0.470 0.402 NT-Pro-B Natriuret Pep 06/20/19 06/22/19 06/26/19 08:53 06:48 09:09 Creatine Kinase CK-MB (CK-2) Troponin I 0.244 0.077 NT-Pro-B Natriuret Pep 3140 H 06/28/19 06/30/19 03:55 03:00 Creatine Kinase CK-MB (CK-2) Troponin I NT-Pro-B Natriuret Pep 4410 H 55698 H Impressions: Head CT 06/14/19 15:37 IMPRESSION: NORMAL BRAIN CT WITHOUT CONTRAST. EVIDENCE OF ACUTE STROKE: NO. Abdomen/Pelvis CT 06/14/19 19:43 IMPRESSION: No acute intra-abdominal process is identified. The bowel is nonobstructed. Remote postsurgical change. Dependent atelectasis. Moderate hiatal hernia. Imaging is degraded by patient motion, with resultant artifact. The best possible images were obtained.. Head CTA 06/19/19 17:38 IMPRESSION: NO OCCLUSION OF THE MAJOR INTRACRANIAL ARTERIAL VESSELS. THE MORE DISTAL BRANCHES OF THE LEFT MIDDLE CEREBRAL ARTERY ARE SOMEWHAT ATTENUATED COMPARED TO THE RIGHT. MAY BE ARTIFACT DUE TO CONTRAST BOLUS AND POSITIONING OF THE PATIENT'S HEAD BUT CANNOT EXCLUDE THE POSSIBILITY OF VASOSPASM. Neck CTA 06/19/19 17:43 IMPRESSION: 1. NORMAL CTA OF THE EXTRA-CRANIAL CAROTID AND VERTEBRAL ARTERIES. 2. LEFT PLEURAL EFFUSION. RIGHT APICAL PNEUMOTHORAX. THESE FINDINGS HAVE BEEN FOLLOWED ON RECENT X-RAYS. Venous Doppler Study 06/30/19 00:00 IMPRESSION: THROMBOSIS OF THE RIGHT BASILIC, AXILLARY AND SUBCLAVIAN VEINS. Chest X-Ray 06/30/19 05:00 IMPRESSION: No significant change. All labs, radiographs, diagnostic studies and EKGs were personally reviewed: Yes In addition, reports of radiographic and diagnostic studies were read: Yes Assessment and Plan - Diagnosis (1) Cardiac arrest Is this a current diagnosis for this admission?: Yes Plan: Still not awake. Minimal neurological recovery. No recurrance of arrest. (2) Polysubstance abuse Is this a current diagnosis for this admission?: Yes Plan: No longer active but tox screen positive on admission. (3) Tension pneumothorax Is this a current diagnosis for this admission?: Yes Plan: Resolved. (4) Adrenal insufficiency Is this a current diagnosis for this admission?: Yes Plan: Steroids stopped. (5) COVID-19 Is this a current diagnosis for this admission?: No Plan: First test negative. Will test again for LTAC. Plan Summary: Trach and PEG today. He is NPO. LTAC Sunday. Critical Time Critical Time (minutes): 35 Level of Care: ICU Anticipated discharge: Other - LTAC Within: within 24 hours -: 1. The care of a critical patient is a dynamic process. This note is a re presentative synopsis but static in nature. The timeframe for treatments given in order is not necessarily the actual time these treatments may have been done. 2. This patient requires critical care secondary to ongoing requirements for therapy not offered or safe outside the critical care environment. Transfer to a lower level of care will result in altered life or limb morbidity and mortalit y. 3. Multidisciplinary rounds completed. 4. ABCDE bundle addressed.
[2019-07-03] MEDS: AMINO AC/PROTEIN HYDR/WHEY PRO 11 GM/45 ML PKT NG SCH ×3 (10:11→17:20)
[2019-07-03] MEDS: POTASSIUM CHLORIDE 20 MEQ PACKET NG SCH ×2 (10:11→10:17)
[2019-07-03] MEDS: FAMOTIDINE INJ/PF 20 MG/2 ML SDV IV SCH ×2 (10:11→21:54)
[2019-07-03] MEDS: FENTANYL CITRATE INJ/PF 100 MCG/2 ML AMPUL IV PRN ×2 (10:12→22:56)
[2019-07-03] MEDS ORDERED: ACETAMINOPHEN 650 MG SUPP.RECT PR ONE (11:00)
[2019-07-03] MEDS ORDERED: FENTANYL CITRATE INJ/PF 100 MCG/2 ML AMPUL ONE (11:05)
[2019-07-03] MEDS ORDERED: MIDAZOLAM 2 MG/2 ML INJ ONE (11:05)
[2019-07-03] MEDS ORDERED: EPINEPHRINE INJ 1 MG/10 ML DISP.SYRIN ONE (11:38)
[2019-07-03] MEDS ORDERED: FENTANYL CITRATE INJ/PF 100 MCG/2 ML AMPUL IV PRN ×3 (12:32)
[2019-07-03] MEDS ORDERED: MORPHINE SULFATE 10 MG/ML INJ IV PRN (12:32)
[2019-07-03] MEDS ORDERED: CEFAZOLIN INJ 1 GM VIAL ONE (12:40)
--- NOTE | 2019-07-03 13:27 | Operative Report ---
Nonrecallable Operative Report DATE OF SURGERY: 07/03/19 PREOPERATIVE DIAGNOSIS: History of cardiac arrest ventilator dependence POSTOPERATIVE DIAGNOSIS: History of cardiac arrest and ventilator dependence OPERATION: Permanent tracheostomy and percutaneous endoscopic gastrostomy tube placement SURGEON: RO HUSSEIN ANESTHESIA: GA TISSUE REMOVED OR ALTERED: None COMPLICATIONS: None ESTIMATED BLOOD LOSS: 10 cc INTRAOPERATIVE FINDINGS: See note PROCEDURE: Patient was brought to the operating room intubated in his usual neurologic state. The procedure was done on the patient's hospital bed. After appropriate timeout site verification the procedure commenced. The neck was prepped and d raped in usual sterile fashion. Curvilinear incision was made 2 fingerbreadths above the sternal notch and dissection was carried down through subcutaneous tissue with Bovie cautery. The dissection continued in the mid line raphae of the strap muscles and the thyroid was identified. The thyroid was divided with Bovie cautery. The second through fourth tracheal ring were identified and cleared of the overlying a pretracheal fascia. This was done with Bovie cautery. We then used 2-0 nylon suture and placed a suture on each side of midline in the third tracheal ring and this was used for future retraction if necessary. We then made an incision in the third tracheal ring with a Bovie cautery and then this was enlarged with Metzenbaum scissors. We then dilated the tracheostomy opening with the tracheal dilator and asked anesthesia pulled the endotracheal tube back. We then used a Shiley 8 Welsh tracheostomy tube with an inner cannula placed at in through the tracheostomy incision in the trachea and it was then attached to the ventilator with good compliance. We then stitched the tracheostomy tube to the neck with 4 stitches of 2-0 nylon suture. The tracheal cuff was inflated and a tracheostomy dressing was applied. We then removed the drapes and reprepped the abdominal wall for the percutaneous endoscopic gastrostomy tube. The Olympus gastroscope was passed into the mouth and easily into the proximal esophagus we insufflated the stomach and identified a point by putting pressure on the left upper quadrant over the stomach confirming we had the proper position for the needle. We placed the needle into the abdominal wall skin into the stomach and through the needle placed the wire for attachment to gastrostomy tube. The wire was grasped with a an endoscopic grasper and pulled back through the mouth. It was attached to the gastrostomy tube and pulled through the mouth into the stomach and then out the anterior abdominal wall. It was cut to size and fixed to the anterior abdominal wall with the supplied retention device. It infused and withdrew easily. We confirm good abutment to the anterior abdominal wall in the stomach with endoscopy once again. A sterile dressing was applied which completed the procedure. Estimated blood loss for entire procedure was 10 cc sponge and needle counts were correct x2 he was transferred back to intensive care unit in stable condition.
[2019-07-03 15:39] LABS: ANION GAP 6 (5-19); BLOOD UREA NITROGEN 15 mg/dL (7-20); CALCIUM 7.9 mg/dL (8.4-10.2); CARBON DIOXIDE 22 mmol/L (22-30); CHLORIDE 107 mmol/L (98-107); GLUCOSE 79 mg/dL (75-110); POTASSIUM 3.7 mmol/L (3.6-5.0)
[2019-07-03] MEDS: ACETAMINOPHEN 650 MG SUPP.RECT PR PRN (21:54)
[2019-07-03] MEDS ORDERED: VANCOMYCIN HCL 0 MG in DEXTROSE 5%-WATER 250 ML IV NR (23:45)
[2019-07-04] MEDS: IPRATROPIUM/ALBUTEROL 0.5-2.5 MG/3 ML AMPUL NEB SCH ×2 (00:06→08:41)
[2019-07-04] MEDS ORDERED: VANCOMYCIN HCL INJ 1000 MG VIAL IV PRN (00:11)
[2019-07-04] MEDS ORDERED: VANCOMYCIN HCL 1,000 MG in DEXTROSE 5%-WATER 250 ML IV ONE (00:30)
[2019-07-04] MEDS: ACETAMINOPHEN 650 MG SUPP.RECT PR PRN (01:54)
[2019-07-04] MEDS ORDERED: RINGERS SOLUTION,LACTATED 1,000 ML IV ONE (02:30)
[2019-07-04] MEDS ORDERED: METOPROLOL TARTRATE PF/INJ 5 MG/5 ML SDV IV ONE ×2 (04:35→05:00)
[2019-07-04 04:55] LABS: ANION GAP 9 (5-19); BLOOD UREA NITROGEN 14 mg/dL (7-20); CALCIUM 7.9 mg/dL (8.4-10.2); CARBON DIOXIDE 18 mmol/L (22-30); CHLORIDE 104 mmol/L (98-107); GLUCOSE 74 mg/dL (75-110); POTASSIUM 3.8 mmol/L (3.6-5.0)
[2019-07-04] MEDS: HEPARIN SOD (PORCINE) 5,000 UNIT/ML 1 ML VIAL SUBCUT SCH (05:29)
[2019-07-04] MEDS: RINGERS SOLUTION,LACTATED 1,000 ML IV PRN (07:50)
[2019-07-04] MEDS: ACETAMINOPHEN SOLN 325 MG/10.15 ML UDCUP NG PRN (07:53)
--- NOTE | 2019-07-04 08:07 | Progress Note ---
Provider Note Provider Note: s/p peg and trach yesterday both functioning well ok to use peg today surgery will sign off.
[2019-07-04] MEDS: POTASSIUM CHLORIDE 20 MEQ PACKET NG SCH (09:13)
[2019-07-04 09:14] LABS: APPEARANCE,URINE SLIGHTLY-CLOUDY; BILIRUBIN,URINE NEGATIVE (NEGATIVE); COLOR,URINE YELLOW; GLUCOSE, URINE 150 mg/dL (NEGATIVE); KETONES,URINE NEGATIVE (NEGATIVE); PROTEIN,URINE NEGATIVE (NEGATIVE); URINE SPECIFIC GRAVITY 1.021; UROBILINOGEN,URINE NEGATIVE mg/dL (<2.0)
[2019-07-04] MEDS: AMINO AC/PROTEIN HYDR/WHEY PRO 11 GM/45 ML PKT NG SCH (09:14)
[2019-07-04] MEDS: FAMOTIDINE INJ/PF 20 MG/2 ML SDV IV SCH (09:14)
[2019-07-04] MEDS ORDERED: VANCOMYCIN HCL 1,000 MG in DEXTROSE 5%-WATER 250 ML IV SCH (10:00)
[2019-07-04 10:14] LABS: C DIFFICILE GDH NEGATIVE (NEGATIVE)
[2019-07-04 10:23] VITALS: BP 91/54
--- NOTE | 2019-07-04 11:15 | PDOC DISCHARGE SUMMARY ---
Impression - Admit/DC Date/PCP Admission Date/Primary Care Provider: 06/15/19 01:22 INDERJIT SOLIS MD Discharge Date: 07/04/19 - Discharge Diagnosis (1) Cardiac arrest Is this a current diagnosis for this admission?: Yes (2) Polysubstance abuse Is this a current diagnosis for this admission?: Yes (3) Tension pneumothorax Is this a current diagnosis for this admission?: Yes (4) Adrenal insufficiency Is this a current diagnosis for this admission?: Yes (5) COVID-19 Is this a current diagnosis for this admission?: No - Additional Information Resuscitation Status: Full Code Referrals: LOCALMD,NO [NO LOCAL MD] - Follow up as needed Home Medications: No Home Medications 06/15/19 History of Present Illiness History of Present Illness: LILI KELLOGG is a 53 year old male who suffered a cardiac arrest while waiting for a V/Q scan. Rosc was established after protocol but unfortunately not before an anoxic injury. He has been ventilator dependant basicqally because he cannot protect airway. He was trached and PEGd 07/02 anticipating a stay at an LTAC. he was extubated once and failed in less than a day. Hospital Course Hospital Course: In addition to his arrest, he has been hypoadrenal, treated with steroids, now off. He has a hx of polysubstance abuse active until his arrest. His mother (Danni Nichole) is decision maker and understands the bleak prognosis but has opted for some attempt at awakening and rehab. Physical Exam Vital Signs: Temp Pulse Resp BP Pulse Ox 101.7 F H 100 24 H 91/54 L 99 07/04/19 10:00 07/04/19 10:00 07/04/19 10:00 07/04/19 10:07/04/19 10:00 Intake & Output 07/03/19 07/04/19 07/05/19 06:59 06:59 06:59 Intake Total 1450 2250 1000 Output Total 1465 1515 250 Balance -15 735 750 Weight 64 kg 63 kg General appearance: PRESENT: no acute distress Head exam: PRESENT: atraumatic, normocephalic Eye exam: PRESENT: conjunctiva pink, EOMI, PERRLA. ABSENT: scleral icterus Ear exam: PRESENT: normal external ear exam Mouth exam: PRESENT: moist, tongue midline Neck exam: PRESENT: tracheostomy Respiratory exam: PRESENT: clear to auscultation mindy. ABSENT: rales, rhonchi, wheezes Cardiovascular exam: PRESENT: RRR. ABSENT: diastolic murmur, rubs, systolic murmur GI/Abdominal exam: PRESENT: normal bowel sounds, soft, other - PEG site clean. 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 ABSENT: calf tenderness, clubbing, pedal edema Musculoskeletal exam: PRESENT: deformity Neurological exam: PRESENT: altered, other - Makes some semi-purposeful movements. Skin exam: PRESENT: dry, intact, warm. ABSENT: cyanosis, rash Results Laboratory Results: WBC 13.6 10^3/uL (4.0-10.5) H 07/03/19 04:15 RBC 3.47 10^6/uL (4.35-5.55) L 07/03/19 04:15 Hgb 10.5 g/dL (13.5-17.0) L 07/03/19 04:15 Hct 30.3 % (37.9-51.0) L 07/03/19 04:15 MCV 87 fl (80-97) 07/03/19 04:15 MCH 30.3 pg (27.0-33.4) 07/03/19 04:15 MCHC 34.8 g/dL (32.0-36.0) 07/03/19 04:15 RDW 16.9 % (11.5-14.0) H 07/03/19 04:15 Plt Count 524 10^3/uL (150-450) H 07/03/19 04:15 Lymph % (Auto) 9.4 % (13-45) L 06/28/19 03:55 Vilas % (Auto) 7.5 % (3-13) 06/28/19 03:55 Eos % (Auto) 0.0 % (0-6) 06/28/19 03:55 Baso % (Auto) 0.1 % (0-2) 06/28/19 03:55 Absolute Neuts (auto) 9.6 10^3/uL (1.7-8.2) H 06/28/19 03:55 Absolute Lymphs (auto) 1.1 10^3/uL (0.5-4.7) 06/28/19 03:55 Absolute Monos (auto) 0.9 10^3/uL (0.1-1.4) 06/28/19 03:55 Absolute Eos (auto) 0.0 10^3/uL (0.0-0.6) 06/28/19 03:55 Absolute Basos (auto) 0.0 10^3/uL (0.0-0.2) 06/28/19 03:55 Total Counted 100 06/17/19 05:08 Seg Neutrophils % 83.0 % (42-78) H 06/28/19 03:55 Seg Neuts % (Manual) 94 % (42-78) H 06/17/19 05:08 Band Neutrophils % 1 % (3-5) L 06/17/19 05:08 Lymphocytes % (Manual) 4 % (13-45) L 06/17/19 05:08 Monocytes % (Manual) 1 % (3-13) L 06/17/19 05:08 Eosinophils % (Manual) 0 % (0-6) 06/17/19 05:08 Basophils % (Manual) 0 % (0-2) 06/17/19 05:08 Abs Neuts (Manual) 14.2 10^3/uL (1.7-8.2) H 06/17/19 05:08 Abs Lymphs (Manual) 0.6 10^3/uL (0.5-4.7) 06/17/19 05:08 Abs Monocytes (Manual) 0.1 10^3/uL (0.1-1.4) 06/17/19 05:08 Absolute Eos (Manual) 0.0 10^3/uL (0.0-0.6) 06/17/19 05:08 Abs Basophils (Manual) 0.0 10^3/uL (0.0-0.2) 06/17/19 05:08 Toxic Granulation 1+ 06/17/19 05:08 Platelet Estimate Cancelled 06/16/19 05:05 Platelet Comment ADEQUATE 06/17/19 05:08 Poikilocytosis SLIGHT 06/17/19 05:08 Anisocytosis 1+ 06/17/19 05:08 Tear Drop Cells SLIGHT 06/17/19 05:08 Ovalocytes SLIGHT 06/17/19 05:08 PT 18.1 SEC (11.4-15.4) H 06/14/19 12:38 INR 1.49 06/14/19 12:38 APTT 42.6 SEC (23.5-35.8) H 06/14/19 12:38 Carbonic Acid 1.07 mmol/L (1.05-1.35) 06/30/19 03:00 HCO3/H2CO3 Ratio 24:1 06/30/19 03:00 ABG pH 7.48 (7.35-7.45) H 06/30/19 03:00 ABG pCO2 35.5 mmHg (35-45) 06/30/19 03:00 ABG pO2 108.5 mmHg (80-100) H 06/30/19 03:00 ABG HCO3 26.0 mmol/L (20-24) H 06/30/19 03:00 ABG Total CO2 27.1 mmol/L (23-27) H 06/30/19 03:00 ABG O2 Saturation 98.3 % (94-98) H 06/30/19 03:00 ABG Base Excess 2.6 mmol/L 06/30/19 03:00 VBG pH 7.32 (7.30-7.42) 06/14/19 12:38 VBG pCO2 46.6 mmHg (35-63) 06/14/19 12:38 VBG HCO3 23.7 mmol/L (20-32) 06/14/19 12:38 VBG Base Excess -2.8 mmol/L 06/14/19 12:38 FiO2 30% 06/30/19 03:00 Sodium 130.7 mmol/L (137-145) L 07/04/19 04:30 Potassium 3.8 mmol/L (3.6-5.0) 07/04/19 04:30 Chloride 104 mmol/L (98-107) 07/04/19 04:30 Carbon Dioxide 18 mmol/L (22-30) L 07/04/19 04:30 Anion Gap 9 (5-19) 07/04/19 04:30 BUN 14 mg/dL (7-20) 07/04/19 04:30 Creatinine 0.33 mg/dL (0.52-1.25) L 07/04/19 04:30 Est GFR ( Amer) > 60 (>60) 07/04/19 04:30 Est GFR (MDRD) Non-Af > 60 (>60) 07/04/19 04:30 Glucose 74 mg/dL (75-110) L 07/04/19 04:30 POC Glucose 97 mg/dL (70-110) 07/04/19 07:17 Serum Osmolality 266 mOsm/kg (275-301) L 06/26/19 02:38 Lactic Acid 0.7 mmol/L (0.7-2.1) 06/22/19 04:19 Calcium 7.9 mg/dL (8.4-10.2) L 07/04/19 04:30 Phosphorus 3.3 mg/dL (2.5-4.5) 06/30/19 03:00 Magnesium 2.5 mg/dL (1.6-2.3) H 06/30/19 03:00 Ferritin 189.00 ng/mL (17.9-464.0) 06/15/19 12:35 Total Bilirubin 0.4 mg/dL (0.2-1.3) 06/30/19 03:00 Direct Bilirubin 0.0 mg/dL (0.0-0.4) 06/30/19 03:00 Neonat Total Bilirubin Not Reportable 06/30/19 03:00 Neonat Direct Bilirubin Not Reportable 06/30/19 03:00 Neonat Indirect Bili Not Reportable 06/30/19 03:00 AST 77 U/L (17-59) H 06/30/19 03:00 ALT 100 U/L (<50) H 06/30/19 03:00 Alkaline Phosphatase 90 U/L (38-126) 06/30/19 03:00 Ammonia < 8.7 umol/L (9-33) L 06/14/19 13:09 Creatine Kinase 610 U/L (55-170) H 06/15/19 17:50 CK-MB (CK-2) 19.40 ng/mL (<4.55) H 06/15/19 17:50 Troponin I 0.074 ng/mL 07/04/19 04:30 C-Reactive Protein 184.6 mg/L (<10.0) H 06/15/19 12:35 NT-Pro-B Natriuret Pep 95118 pg/mL (<125) H 06/30/19 03:00 Total Protein 5.4 g/dL (6.3-8.2) L 06/30/19 03:00 Albumin 3.0 g/dL (3.5-5.0) L 06/30/19 03:00 Prealbumin 17.6 mg/dL (17.6-36.0) 06/30/19 03:00 Amylase 50 U/L (30-110) 06/14/19 12:38 Lipase 122.3 U/L (23-300) 06/14/19 12:38 TSH 9.18 uIU/mL (0.47-4.68) H 06/26/19 08:40 Free T4 1.02 ng/dL (0.78-2.19) 06/27/19 15:45 Thyroxine (T4) 7.64 ug/dL (5.53-11.0) 06/27/19 09:15 T3 0.984 ng/mL (0.970-1.69) 06/27/19 15:45 Free T3 pg/mL 3.37 pg/mL (2.77-5.27) 06/27/19 15:45 Random Cortisol Cancelled 06/27/19 09:15 ACTH Cancelled 06/27/19 10:00 Urine Color YELLOW 07/04/19 08:40 Urine Appearance SLIGHTLY-CLOUDY 07/04/19 08:40 Urine pH 5.0 (5.0-9.0) 07/04/19 08:40 Ur Specific Sayner 1.021 07/04/19 08:40 Urine Protein NEGATIVE mg/dL (NEGATIVE) 07/04/19 08:40 Urine Glucose (UA) 150 mg/dL (NEGATIVE) H 07/04/19 08:40 Urine Ketones NEGATIVE mg/dL (NEGATIVE) 07/04/19 08:40 Urine Blood MODERATE (NEGATIVE) H 07/04/19 08:40 Urine Nitrite NEGATIVE (NEGATIVE) 06/22/19 05:50 Urine Nitrite (Reflex) NEGATIVE (NEGATIVE) 07/04/19 08:40 Urine Bilirubin NEGATIVE (NEGATIVE) 07/04/19 08:40 Urine Urobilinogen NEGATIVE mg/dL (<2.0) 07/04/19 08:40 Ur Leukocyte Esterase NEGATIVE (NEGATIVE) 06/22/19 05:50 Leukocyte Esterase Rfl NEGATIVE (NEGATIVE) 07/04/19 08:40 Urine WBC (Auto) 3 /HPF 06/22/19 05:50 Urine RBC (Auto) 48 /HPF 07/04/19 08:40 U Hyaline Cast (Auto) 3 /LPF 07/04/19 08:40 Urine Bacteria (Auto) TRACE /HPF 06/14/19 16:12 Urine WBC (Reflex) 1 /HPF 07/04/19 08:40 Squamous Epi Cells Auto <1 /HPF 06/22/19 05:50 Granular Casts (Auto) 4 /LPF 06/19/19 08:10 Urine Mucus (Auto) MOD /LPF 07/04/19 08:40 Urine Osmolality 662 mOsm/kg (300-900) 06/26/19 02:38 Urine Creatinine 54.8 mg/dL (22-328) 06/26/19 02:38 Urine Sodium 225 mmol/L (30-90) H 06/26/19 02:38 Urine Ascorbic Acid NEGATIVE (NEGATIVE) 07/04/19 08:40 POC Gastric Occult Bld POSITIVE (NEGATIVE) 06/14/19 13:00 Stl C. Difficile GDH Ag NEGATIVE (NEGATIVE) 07/04/19 08:19 Stl C.difficile Tox A&B NEGATIVE (NEGATIVE) 07/04/19 08:19 Time Trough Drawn 0945 06/21/19 09:45 Vancomycin Trough 10.6 ug/mL (5.0-20.0) 06/21/19 09:45 Urine Opiates Screen NEGATIVE 06/14/19 16:12 Urine Methadone Screen NEGATIVE 06/14/19 16:12 Ur Barbiturates Screen NEGATIVE 06/14/19 16:12 Ur Phencyclidine Scrn NEGATIVE 06/14/19 16:12 Ur Amphetamines Screen UNCONFIRMED POSITIVE 06/14/19 16:12 U Benzodiazepines Scrn UNCONFIRMED POSITIVE 06/14/19 16:12 Urine Cocaine Screen UNCONFIRMED POSITIVE 06/14/19 16:12 U Marijuana (THC) Screen NEGATIVE 06/14/19 16:12 Serum Alcohol < 10 mg/dL (NONE DETECTED) 06/14/19 12:38 Chlamy pneumoniae PCR NOT DETECTED 06/15/19 18:15 Adenovirus (PCR) NOT DETECTED 06/15/19 18:15 B. pertussis DNA (PCR) NOT DETECTED 06/15/19 18:15 B.parapertussis DNA PCR NOT DETECTED 06/15/19 18:15 Coronavirus OC43 (PCR) NOT DETECTED 06/15/19 18:15 Coronavirus HKU1 (PCR) NOT DETECTED 06/15/19 18:15 Coronavirus 229E (PCR) NOT DETECTED 06/15/19 18:15 COVID-19 Source Cancelled 07/03/19 17:09 COVID-19 (CHECO) Cancelled 07/03/19 17:09 Coronavirus NL63 (PCR) NOT DETECTED 06/15/19 18:15 Human Metapneumovir PCR NOT DETECTED 06/15/19 18:15 Influenza A (H1) PCR NOT DETECTED 06/15/19 18:15 Influ A (H1N1/09) PCR NOT DETECTED 06/15/19 18:15 Influenza A (H3) PCR NOT DETECTED 06/15/19 18:15 Influenza Type A (PCR) NOT DETECTED 06/15/19 18:15 Influenza Type B (PCR) NOT DETECTED 06/15/19 18:15 M. pneumoniae (PCR) NOT DETECTED 06/15/19 18:15 Parainfluenza 1 (PCR) NOT DETECTED 06/15/19 18:15 Parainfluenza 2 (PCR) NOT DETECTED 06/15/19 18:15 Parainfluenza 3 (PCR) NOT DETECTED 06/15/19 18:15 Parainfluenza 4 (PCR) NOT DETECTED 06/15/19 18:15 RSV (PCR) NOT DETECTED 06/15/19 18:15 Entero/Rhino (PCR) NOT DETECTED 06/15/19 18:15 SARS-CoV-2 (PCR) NEGATIVE (NEGATIVE) 07/03/19 17:09 Slides for Path Review Cancelled 06/16/19 05:05 Blood Type A POSITIVE 06/14/19 13:09 Antibody Screen NEGATIVE 06/14/19 13:09 06/14/19 06/15/19 06/15/19 12:38 03:50 12:35 CK-MB (CK-2) 3.99 14.20 H Troponin I < 0.012 0.036 0.048 NT-Pro-B Natriuret Pep 04/26/20 04/30/20 05/01/20 17:50 21:25 02:08 CK-MB (CK-2) 19.40 H Troponin I 0.025 0.470 0.402 NT-Pro-B Natriuret Pep 06/20/19 06/22/19 06/26/19 08:53 06:48 09:09 CK-MB (CK-2) Troponin I 0.244 0.077 NT-Pro-B Natriuret Pep 3140 H 06/28/19 06/30/19 07/04/19 03:55 03:00 04:30 CK-MB (CK-2) Troponin I 0.074 NT-Pro-B Natriuret Pep 4410 H 20387 H Impressions: Chest X-Ray 06/14/19 12:09 IMPRESSION: NO ACUTE RADIOGRAPHIC FINDING IN THE CHEST. VASCULAR PORT DESCRIBED. Head CT 06/14/19 15:37 IMPRESSION: NORMAL BRAIN CT WITHOUT CONTRAST. EVIDENCE OF ACUTE STROKE: NO. Abdomen/Pelvis CT 06/14/19 19:43 IMPRESSION: No acute intra-abdominal process is identified. The bowel is nonobstructed. Remote postsurgical change. Dependent atelectasis. Moderate hiatal hernia. Imaging is degraded by patient motion, with resultant artifact. The best possible images were obtained.. Chest X-Ray 06/15/19 00:00 IMPRESSION: Development of a right-sided tension pneumothorax. The above findings were discussed with and acknowledged by LUCIEN Arguello at 4:25 AM on 06/15/2019. copyright 2010 [employer]- All Rights Reserved Chest X-Ray 06/15/19 00:00 IMPRESSION: 1. Right pigtail catheter tip appears external to the rib cage. Consider removal or replacement. 2. Small right tension pneumothorax and/or partial left lung collapse. 3. Right subclavian miniport catheter tip is at the expected right subclavian vein at the level of the mid-distal right clavicle after coiling back on itself at the expected right brachiocephalic vein. Consider adjustment/ replacement. 4. Moderate multifocal opacities of the left upper and lower lung iraheta. Interval worsening. 5. Small lucency external to the right lower rib cage may indicate small lung herniation were soft tissue emphysema. Chest X-Ray 06/15/19 10:39 IMPRESSION: Interval re-expansion of the right lung status post chest tube placement. No significant pneumothorax. Chest X-Ray 06/16/19 00:00 IMPRESSION: The amount of subcutaneous emphysema in the right hemithorax has decreased. There are is a large bore chest tube in place on the right ; there is no appreciable pneumothorax. The pleural and parenchymal opacities in the inferior aspect of the left hemithorax are unchanged. Chest X-Ray 06/16/19 22:15 IMPRESSION: 1. No significant change Chest X-Ray 06/18/19 00:00 IMPRESSION: Minimal right pneumothorax, smaller since yesterday. Otherwise unchanged. Chest X-Ray 06/18/19 06:00 IMPRESSION: No significant change. Chest X-Ray 06/19/19 11:45 IMPRESSION: Unchanged small right apical pneumothorax status post right chest tube removal. Head CTA 06/19/19 17:38 IMPRESSION: NO OCCLUSION OF THE MAJOR INTRACRANIAL ARTERIAL VESSELS. THE MORE DISTAL BRANCHES OF THE LEFT MIDDLE CEREBRAL ARTERY ARE SOMEWHAT ATTENUATED COMPARED TO THE RIGHT. MAY BE ARTIFACT DUE TO CONTRAST BOLUS AND POSITIONING OF THE PATIENT'S HEAD BUT CANNOT EXCLUDE THE POSSIBILITY OF VASOSPASM. Neck CTA 06/19/19 17:43 IMPRESSION: 1. NORMAL CTA OF THE EXTRA-CRANIAL CAROTID AND VERTEBRAL ARTERIES. 2. LEFT PLEURAL EFFUSION. RIGHT APICAL PNEUMOTHORAX. THESE FINDINGS HAVE BEEN FOLLOWED ON RECENT X-RAYS. Chest X-Ray 06/20/19 00:00 IMPRESSION: Interval placement of a right-sided chest tube with decreased size of the right-sided pneumothorax. Retraction of the endotracheal tube with tip over midthoracic trachea. Persistent left basilar consolidation, possibly atelectasis or infection. Chest X-Ray 06/20/19 06:00 IMPRESSION: 1. Slight interval increase in size of the right-sided pneumothorax measuring approximately 20%. 2. Ongoing volume loss in the left lung base. 3. The tip of the endotracheal tube terminates at the jerry and approaches but does not enter the right mainstem bronchus. 4. Stable positioning of the right subclavian [id number] catheter and feeding tube. 5. Persistent subcutaneous emphysema. These findings were discussed with Leonela Matias RN on 06/20/2019 at 6:18 AM central time Chest X-Ray 06/21/19 06:00 IMPRESSION: Placement of a right thoracostomy tube with slight improvement in the right pneumothorax. Slight retraction of the endotracheal tube. Other findings are grossly stable. copyright 2010 [employer]- All Rights Reserved Chest X-Ray 06/21/19 21:55 IMPRESSION: Persistent right apical and lateral pneumothorax despite presence of a thoracostomy tube Atelectasis or infiltrate in the left base of the later pleural effusion Subclavian [id number] catheter loops back on itself in the subclavian artery. Ideally, this should be repositioned. This appears to been in this position since at least June 13. Chest X-Ray 06/22/19 05:00 IMPRESSION: No change. Chest X-Ray 06/23/19 05:00 IMPRESSION: No change. Chest X-Ray 06/24/19 05:00 IMPRESSION: 1. Unchanged right apical pneumothorax that measures approximately 1.6 cm (measured from the edge of the lung to the inner surface of the adjacent 1st rib.) 2. Stable opacity in the inferior left hemithorax that could represent a combination of pleural fluid, atelectasis and or consolidation. 3. Tubes and lines as above. Chest X-Ray 06/24/19 18:00 IMPRESSION: Stable right apical pneumothorax and right chest tube. Endotracheal and nasogastric tubes in good positioning. Stable left basilar consolidation and pleural effusion Chest X-Ray 06/25/19 05:00 IMPRESSION: Stable small right apical pneumothorax. Stable right-sided chest tube. Endotracheal tube tip overlies midthoracic trachea, stable. Persistent dense left basilar consolidation, likely atelectasis. Chest X-Ray 06/26/19 05:00 IMPRESSION: 1. Improved right apical pneumothorax with a probable tiny apical pneumothorax remaining. 2. Otherwise no significant change. Chest X-Ray 06/27/19 07:53 IMPRESSION: No pneumothorax on today's study right-sided chest tube remains in place. Persistent left retrocardiac airspace disease. Chest X-Ray 06/28/19 00:00 IMPRESSION: No significant change in the appearance of the chest. Chest X-Ray 06/28/19 06:00 IMPRESSION: No significant change.Right subclavian miniport catheter tip at the lateral right subclavian vein looping back at the proximal right subclavian vein; consider replacement. Chest X-Ray 06/29/19 00:00 IMPRESSION: No pneumothorax post chest tube removal. Position of support devices unchanged. Venous access catheter tip pointed in along the right subclavian pointing toward the axillary. Chest X-Ray 06/29/19 00:00 IMPRESSION: 1. Persistent parenchymal opacification in the left mid and lower lung zone. 2. Endotracheal tube and NG tube are in good position. Right subclavian chest port remains coiled in the subclavian vein. Venous Doppler Study 06/30/19 00:00 IMPRESSION: THROMBOSIS OF THE RIGHT BASILIC, AXILLARY AND SUBCLAVIAN VEINS. Chest X-Ray 06/30/19 05:00 IMPRESSION: No significant change. Plan Health Concerns: Transfer to LTAC. Plan of Treatment: Wean markus tolerated. OK to use PEG with Jevity 1.5 at 30cc/hr. Goals: Hope he will awaken some. Critical Time: 35 Level of Care: ICU Stroke Is this a Stroke Patient?: No Acute Heart Failure - Is this a Heart Failure Patient?: No
[2019-07-04] MEDS: FENTANYL CITRATE INJ/PF 100 MCG/2 ML AMPUL IV PRN (11:27)
== END 2019-07-04 11:35 | DRG 3 ==
LOC: ER 11:57 → EH 06-15 01:22 → ICU 06-15 03:06
PROVIDERS: ADMIT Internal Medicine; ATTEND Anesthesiology
PROC: 5A1955Z Respiratory Ventilation, Greater than 96 Consecutive Hours (ICD-10-PCS; principal; 2019-06-15)
PROC: 0BH17EZ Insertion of Endotracheal Airway into Trachea, Via Natural or Artificial Opening (ICD-10-PCS; 2019-06-15)
PROC: 02HV33Z Insertion of Infusion Device into Superior Vena Cava, Percutaneous Approach (ICD-10-PCS; 2019-06-15)
PROC: 06HM33Z Insertion of Infusion Device into Right Femoral Vein, Percutaneous Approach (ICD-10-PCS; 2019-06-15)
PROC: 0W9930Z Drainage of Right Pleural Cavity with Drainage Device, Percutaneous Approach (ICD-10-PCS; 2019-06-15)
PROC: 0B9K3ZZ Drainage of Right Lung, Percutaneous Approach (ICD-10-PCS; 2019-06-18)
PROC: 0CJS8ZZ Inspection of Larynx, Via Natural or Artificial Opening Endoscopic (ICD-10-PCS; 2019-06-19)
PROC: 0BH18EZ Insertion of Endotracheal Airway into Trachea, Via Natural or Artificial Opening Endoscopic (ICD-10-PCS; 2019-06-19)
PROC: 0BH17EZ Insertion of Endotracheal Airway into Trachea, Via Natural or Artificial Opening (ICD-10-PCS; 2019-06-29)
PROC: 5A1955Z Respiratory Ventilation, Greater than 96 Consecutive Hours (ICD-10-PCS; 2019-06-29)
PROC: 0DH63UZ Insertion of Feeding Device into Stomach, Percutaneous Approach (ICD-10-PCS; 2019-07-03)
PROC: 0B110F4 Bypass Trachea to Cutaneous with Tracheostomy Device, Open Approach (ICD-10-PCS; 2019-07-03 11:45)
DX: J96.00 Acute respiratory failure, unspecified whether with hypoxia or hypercapnia (principal); J93.0 Spontaneous tension pneumothorax; I46.9 Cardiac arrest, cause unspecified; J81.0 Acute pulmonary edema; J15.212 Pneumonia due to Methicillin resistant Staphylococcus aureus; K92.1 Melena; E87.1 Hypo-osmolality and hyponatremia; E87.2 Acidosis; J98.11 Atelectasis; G93.1 Anoxic brain damage, not elsewhere classified; E27.40 Unspecified adrenocortical insufficiency; Z99.11 Dependence on respirator [ventilator] status; J96.01 Acute respiratory failure with hypoxia; F11.10 Opioid abuse, uncomplicated; F14.90 Cocaine use, unspecified, uncomplicated; F17.200 Nicotine dependence, unspecified, uncomplicated; F12.10 Cannabis abuse, uncomplicated; F13.10 Sedative, hypnotic or anxiolytic abuse, uncomplicated; Z85.038 Personal history of other malignant neoplasm of large intestine; Z86.718 Personal history of other venous thrombosis and embolism; Z89.512 Acquired absence of left leg below knee; Z97.14 Presence of artificial left leg (complete) (partial); Z88.6 Allergy status to analgesic agent; Z88.0 Allergy status to penicillin; Z79.01 Long term (current) use of anticoagulants; Z79.899 Other long term (current) drug therapy; Z20.828 Contact with and (suspected) exposure to other viral communicable diseases; Z78.1 Physical restraint status
CPT/HCPCS: 00320; 0099U; 31500; 32551; 36415; 36556; 36620; 43246; 70450; 70496; 70498; 71045; 74177; 80048; 80053; 80202; 80307; 81001; 82140; 82150; 82271; 82533; 82550; 82553; 82570; 82728; 82803; 82962; 83605; 83690; 83735; 83880; 83930; 83935; 84100; 84134; 84295; 84300; 84436; 84439; 84443; 84480; 84481; 84484; 85025; 85027; 85610; 85730; 86140; 86850; 86900; 86901; 87040; 87070; 87077; 87086; 87150; 87186; 87205; 87324; 87449; 87635; 93005; 93010; 93971; 94002; 94003; 94640; 96361; 96365; 96366; 96367; 96368; 96375; 96376; 99140; 99285; 99291; 99292; J0610; B4155; C1887; C9113; J0171; J0330; J0360; J0461; J0690; J1170; J1642; J1644; J1720; J1940; J1956; J2020; J2250; J2370; J2405; J2704; J2930; J3010; J3370; J3411; J3475; J3490; J7030; J7060; J7120; J7121; J7620; P9047; S0028